=== PATIENT | male | born 1955 | race Caucasian/White ===

== ENCOUNTER 2016-11-17 18:07 | Inpatient (IN) | payer MEDICAID ==
[~2016-11-17 18:07] MED LIST: IOHEXOL 350mg/mL 150mL IV ONE
[2016-11-17] MEDS ORDERED: Sodium Chloride 0.45% 1,000 ML IV ONE ×2 (18:14→18:19)
[2016-11-17 18:38] LABS: % BASOPHILS 0.3 % (0.0-2.0); % EOSINOPHILS 0.7 % (0.0-5.0); % LYMPHOCYTES 17.5 % (20.0-50.0); % MONOCYTES 7.9 % (2.0-10.0); % NEUTROPHILS 73.6 % (40.0-80.0); HEMATOCRIT 48.6 % (39.0-49.0); HEMOGLOBIN 16.2 gm/dL (13.2-17.3); MEAN CELL VOLUME 91.8 fl (80-99); MEAN CORPUSCULAR HEMOGLOBIN 30.7 pg (26.0-30.0); MEAN CORPUSCULAR HGB CONC 33.4 pg (28.0-36.0); MEAN PLATELET VOLUME 7.4 fl; NEUTROPHILE ABSOLUTE 7.8 Th/cmm (1.8-8.0); PLATELET COUNT 290 Th/cmm (150-400); RED CELL DISTRIBUTION WIDTH 13.6 % (11.5-20.0); WHITE BLOOD COUNT 10.6 Th/cmm (4.8-10.8)
[2016-11-17 18:50] LABS: INR 1.06 (0.5-1.4)
[2016-11-17 18:54] LABS: ALB/GLOB RATIO 1.2 (1.0-1.8); ALKALINE PHOSPHATASE 82 U/L (34-104); ANION GAP 12.9 (7.0-16.0); BILIRUBIN,TOTAL 0.7 mg/dL (0.3-1.0); BUN - UREA NITROGEN 23 mg/dL (7-25); BUN/CREATININE RATIO 15.3; CARBON DIOXIDE 25.5 mEq/L (21.0-31.0); CHLORIDE 93 mEq/L (98-107); CHOLESTEROL 252 mg/dL (<200); CREATININE - SERUM 1.5 mg/dL (0.7-1.3); GLUCOSE 195 mg/dL (70-105); POTASSIUM SERUM 4.4 mEq/L (3.5-5.1); SGOT 92 U/L (13-39); SGPT/ALT 91 U/L (7-52); SODIUM SERUM 127 mEq/L (136-145); TRIGLYCERIDES 262 mg/dL (<150)
[2016-11-17] MEDS ORDERED: cefTRIAXone 2 GM in Sodium Chloride 0.9% 100 ML IV ONE (18:54)
--- NOTE | 2016-11-17 20:05 | ED Physician Chart ---
Chief Complaint/HPI - Patient Information Date Seen:: 11/17/16 Time Seen:: 18:20 Chief Complaint:: ALOC History of Present Illness:: THIS IS A 61 YR OLD MALE BIB EMS WITH A HIGH TEMPERATURE, FAST HEART RATE, A LARGE FLUID FILLED ABDOMEN AND UNABLE TO SPEAK. HE IS UNABLE TO GIVE ANY HISTORY OR REVIEW OF SYSTEMS AT THIS TIME. Allergies:: Allergies Allergy/AdvReac Type Severity Reaction Status Date / Time No Known Allergies Allergy Verified 11/17/16 18:45 Vitals:: Vital Signs - 8 hr 11/17/16 11/17/16 18:31 18:45 Temp 105.5 F HR 140 RR 26 BP 188/77 188/77 O2 Sat % 95 Historian:: EMS Review:: Nurse's Note Reviewed Review of Systems - Review of Systems General/Constitutional: Other (NOT ABLE TO GIVE) Past Medical History - Past Medical History Obtainable: No (UNABLE TO GET AT THIS TIME) Family Medical History - Family Member Mother History Unknown: Yes Physical Exam - Physical Examination Other Gen/Cons comments:: THIS IS A 61 YO MALE ALOC AND IN ACUTE DISTRESS, BODY IS HOT, ABDOMEN IS DISTENDED, LUNGS WITH BILATERAL RALES AND DECREASE EXCURSION OF THE DIAPHRAMS. Skin: Nl inspection, No skin lesions Other Skin comments:: SKIN IS HOT AND DRY WITH BILATERAL ENDURATION OF BOTH LOWER EXTREMITIES. Other Respiratory comments:: THE RESPIRATORY RATE IS HIGH 36/MINUTES WITH BILATERAL RALES Other Cardio Vascular comments:: THE HEART RATE IS AROUND 145 AND SINUS Other GI comments:: THE ABDOMEN IS DISTEND WITH FLUID NOTED AND VERY LARGE Other Extremities comments:: THERE IS BILATERAL 4+ PITTING EDEMA WITH REDNESS AND TENDERNESS OF BOTH LOWER LEGS. Other Neuro/Psych comments:: THE PATIENT HAS A ON AND OFF TREMORS BILATERALLY, HE IS DISORIENTED AND UNABLE TO RESPOND TO COMMANDS. Labs/Radiology/EKG Results - Lab Results Results: Laboratory Tests 11/17/16 11/17/16 11/17/16 18:30 18:30 18:30 WBC 10.6 RBC 5.30 Hgb 16.2 Hct 48.6 MCV 91.8 MCH 30.7 H MCHC Differential 33.4 RDW 13.6 Plt Count 290 MPV 7.4 Neutrophils % 73.6 Lymphocytes % 17.5 L Monocytes % 7.9 Eosinophils % 0.7 Basophils % 0.3 PT 11.0 INR 1.06 PTT (Actin FS) 21.6 L Sodium Potassium Chloride Carbon Dioxide Anion Gap BUN Creatinine Est GFR ( Amer) Est GFR (Non-Af Amer) BUN/Creatinine Ratio Glucose Hemoglobin A1c % Whole Bld Lactic Acid Calcium Total Bilirubin AST ALT Alkaline Phosphatase Troponin I Total Protein Albumin Globulin Albumin/Globulin Ratio Triglycerides 262 H Cholesterol 252 H LDL Cholesterol Direct 170 HDL Cholesterol 52 TSH 11/17/16 11/17/16 11/17/16 18:30 18:30 18:30 WBC RBC Hgb Hct MCV MCH MCHC Differential RDW Plt Count MPV Neutrophils % Lymphocytes % Monocytes % Eosinophils % Basophils % PT INR PTT (Actin FS) Sodium 127 L Potassium 4.4 Chloride 93 L Carbon Dioxide 25.5 Anion Gap 12.9 BUN 23 Creatinine 1.5 H Est GFR ( Amer) > 60.0 Est GFR (Non-Af Amer) 50.7 BUN/Creatinine Ratio 15.3 Glucose 195 H Hemoglobin A1c % Whole Bld Lactic Acid Calcium 9.0 Total Bilirubin 0.7 AST 92 H ALT 91 H Alkaline Phosphatase 82 Troponin I 0.04 Total Protein 7.9 Albumin 4.3 Globulin 3.6 Albumin/Globulin Ratio 1.2 Triglycerides Cholesterol LDL Cholesterol Direct HDL Cholesterol TSH 2.02 11/17/16 11/17/16 18:30 18:30 WBC RBC Hgb Hct MCV MCH MCHC Differential RDW Plt Count MPV Neutrophils % Lymphocytes % Monocytes % Eosinophils % Basophils % PT INR PTT (Actin FS) Sodium Potassium Chloride Carbon Dioxide Anion Gap BUN Creatinine Est GFR ( Amer) Est GFR (Non-Af Amer) BUN/Creatinine Ratio Glucose Hemoglobin A1c % 5.7 Whole Bld Lactic Acid 2.98 H* Calcium Total Bilirubin AST ALT Alkaline Phosphatase Troponin I Total Protein Albumin Globulin Albumin/Globulin Ratio Triglycerides Cholesterol LDL Cholesterol Direct HDL Cholesterol TSH - Radiology Results Results: CHEST -X RAY = INCREASE DENSITY OVER THE MID CHEST AREA CT SCAN OF THE CHEST = NO VASCULAR ABNORMALITIES, MILD EDEMA - EKG Interpretations EKG Time:: 18:28 Rate & Rhythm: RATE =138, SINUS TACHYCARDIA Ethel: LEFT AXIS Assessment - Assessment General Assessment: THIS IS A CRITICAL PATIENT WITH A VERY HIGH TEMPERATURE COOLING MEASURES STARTED AND COOL IV FLUIDS, TYLENOL, ANTIBIOTICS WITH LASIX FOR THE FLUID RETENTION IN THE CHEST AND ABDOMEN. ATIVAN WAS GIVEN FOR THE SPASM. THE PATIENT HAD A GOOD RESPONSE TO THE LASIX WITH THE OUTPUT OF 800CC OF URINE. THE PATIENT HAD A REPEAT ABG WITH NOT MUCH CHANGE EXCEPT THERE IS EVIDENCE OF SHUNTING. Critical Care Time: 68 MINUTES Excludes all billable procedures: Yes This condition life threatening/high prob of deterioration: Yes Assessment/Comments:: ACUTE RESPIRATORY FAILURE DUE TO CHF AND HEAT STROKE ED Septic Shock - . Is Septic Shock (SBP<90, OR Lactate>4 mmol\L) present?: No - <6hrs of presentation: Vital Signs: Vital Signs - 8 hr 11/17/16 11/17/16 18:31 18:45 Temp 105.5 F HR 140 RR 26 BP 188/77 188/77 O2 Sat % 95 Reassessment (Disposition) - Reassessment Reassessment Condition:: Improved - Diagnosis Diagnosis:: ACUTE CONGESTIVE HEART FAILURE ELEVATED TEMPERATURE HYPOXEMIA OBESITY - Patient Disposition Discharge/Transfer:: Acute Care w/in this hosp Admitting Medical Physician:: Alton Cardona Condition at Disposition:: Critical, Improved ED Discharge Plan - Patient Disposition Admit/Discharge/Transfer: Acute Care w/in this hosp Condition at Disposition: Improved
[2016-11-17 20:32] LABS: pH 7.45 (7.35-7.45)
[2016-11-17 20:33] LABS: HCO3 27.3 mEq/L (20.0-26.0)
[2016-11-17 20:34] LABS: ALLEN TEST Positive; FIO2 100
[2016-11-17 20:35] LABS: CRITICAL VALUES REPORTED BY DV
[2016-11-17 20:39] LABS: BE(B) 4.3 mEq/L (-3.0-3.0); HCO3 28.3 mEq/L (20.0-26.0); pH 7.43 (7.35-7.45)
[2016-11-17 20:40] LABS: ABG SOURCE ARTERIAL; ALLEN TEST Positive
[2016-11-17 20:41] LABS: CRITICAL VALUES REPORTED BY DV; FIO2 100
[2016-11-17] MEDS: D5-0.45NS 1,000 ML IV SCH (21:30)
[2016-11-17] MEDS ORDERED: Piperacillin Sodium/Tazobact 3.375 gm Vial IV ONE (21:52)
[2016-11-17 22:38] LABS: BNP < 5.0 pg/mL (5.0-100.0)
[2016-11-17 22:41] LABS: TROP I 0.22 ng/mL (0.01-0.05)
[2016-11-17 23:06] LABS: CREATINE KINASE MB 2.9 ng/mL (0.6-6.3)
[2016-11-18] MEDS ORDERED: Piperacillin Sodium/Tazobact 3.375 gm Vial IV ONE (04:44)
[2016-11-18 05:34] LABS: ABG SOURCE ARTERIAL; BE(B) 3.1 mEq/L (-3.0-3.0); pH 7.35 (7.35-7.45)
[2016-11-18 05:35] LABS: ALLEN TEST Positive; FIO2 100
[2016-11-18 05:36] LABS: CRITICAL VALUES REPORTED BY DV
[2016-11-18 06:29] LABS: HEMATOCRIT 46.1 % (39.0-49.0); HEMOGLOBIN 15.5 gm/dL (13.2-17.3); MEAN CELL VOLUME 91.4 fl (80-99); MEAN CORPUSCULAR HEMOGLOBIN 30.8 pg (26.0-30.0); MEAN CORPUSCULAR HGB CONC 33.7 pg (28.0-36.0); MEAN PLATELET VOLUME 7.3 fl; RED BLOOD COUNT 5.04 Mil/cmm (4.30-5.70); RED CELL DISTRIBUTION WIDTH 13.6 % (11.5-20.0)
[2016-11-18 06:32] LABS: PLATELET COUNT 218 Th/cmm (150-400); WHITE BLOOD COUNT 7.8 Th/cmm (4.8-10.8)
[2016-11-18 06:51] LABS: ALB/GLOB RATIO 1.2 (1.0-1.8); ALKALINE PHOSPHATASE 69 U/L (34-104); ANION GAP 9.4 (7.0-16.0); BILIRUBIN,TOTAL 0.7 mg/dL (0.3-1.0); BUN - UREA NITROGEN 22 mg/dL (7-25); BUN/CREATININE RATIO 15.7; CALCIUM SERUM 8.2 mg/dL (8.6-10.3); CARBON DIOXIDE 26.1 mEq/L (21.0-31.0); CHLORIDE 97 mEq/L (98-107); CREATININE - SERUM 1.4 mg/dL (0.7-1.3); GLUCOSE 140 mg/dL (70-105); MAGNESIUM 2.2 mg/dL (1.9-2.7); POTASSIUM SERUM 3.5 mEq/L (3.5-5.1); SGOT 86 U/L (13-39); SGPT/ALT 96 U/L (7-52); SODIUM SERUM 129 mEq/L (136-145)
[2016-11-18 06:54] LABS: TROP I 0.19 ng/mL (0.01-0.05)
[2016-11-18 06:56] LABS: BNP 21.1 pg/mL (5.0-100.0)
[2016-11-18 07:15] LABS: NEUTROPHILS 67 % (40-80); PLATELET ESTIMATE ADEQUATE (NORMAL); PLATELET MORPHOLOGY NORMAL (NORMAL); TOTAL CELLS COUNTED 100
[2016-11-18] MEDS: Albuterol/Ipratropium Neb 3 ML AERS HHN SCH ×4 (07:52→19:17)
--- NOTE | 2016-11-18 08:41 | History and Physical ---
History of Present Illness - HPI Chief Complaint: I passed out. HPI: 61m yrs old with HTN,Hyperlipedemia was shopping at grocery store. Next thing he noticed hw woke in ER. As per ER MD ,patient was brought in to ER by paramedics for ALOC nad found to have high grade fever and SOB. Laynen was rescucitated and now admitted to ICU. Vital Signs: Last Vital Signs Temp 98.6 F 11/18/16 08:08 Pulse 88 11/18/16 08:08 Resp 32 11/18/16 08:08 BP 151/94 11/18/16 08:08 Pulse Ox 97 11/18/16 08:08 Past Medical History Cardiovascular: Report: HTN, Hyperlipidemia Pulmonary: Report: No Pertinent Hx DIRECTOR CLINICAL APPLICATIONS: Report: No Pertinent Hx GI: Report: No Pertinent Hx Psych: Report: No Pertinent Hx Musculoskeletal: Report: No Pertinent Hx Rheumatologic: Report: No pertinent Hx Infectious Disease: Report: No Pertinent Hx Renal/: Report: No Pertinent Hx Endocrine: Report: No Pertinent Hx Dermatology: Report: No Pertinent Hx - Past Surgical History Past Surgical History: No pertinent Hx Family Medical History - Family Member Mother History Unknown: Yes Ethnicity: Non- Hx Family Cancer: No Hx Family Coronary Artery Disease: Yes Hx Family Congestive Heart Failure: No Hx Family Hypertension: Yes Hx Family Stroke: Yes Hx Family Diabetes: Yes Hx Family Seizures: No Hx Family Dementia: No Hx Family AIDS: No Hx Family HIV: No Hx Family COPD: No Hx Family Hepatitis: No Hx Family Psychiatric Problems: No Social History Smoke: Quit Alcohol: Occassional Drugs: None Lives: Alone Domestic Violence: Negative - Medications Home Medications: Home Medication Medication Instructions Recorded Type Unobtainable [Unobtainable] 11/17/16 History - Allergies Allergies/Adverse Reactions: Allergies Allergy/AdvReac Type Severity Reaction Status Date / Time No Known Allergies Allergy Verified 11/17/16 18:45 Review of Systems - Review of Systems Constitutional: Report: Fever, Sweats Eyes: Report: No Significant ENT: Report: No Significant Respiratory: Report: Cough, Shortness of Breath Cardiovascular: Report: No Significant Gastrointestinal: Report: No Significant Genitourinary: Report: No Significant Musculoskeletal: Report: No Significant Skin: Report: Other (bilateral erythema and scratches.) Neurological: Report: No Significant Physical Exam - Physical Exam HEENT: Report: Pharnyx within normal limits Neck: Report: Within normal limits Cardiovascular Systems: Report: +s1/s2 noted, Regular, Rate and Rhythm Respiratory: Report: Wheezing, Rhonchi Abdomen: Report: Non-tender to palpation Back: Report: Inspection of back is within normal limits. Extremities: Report: Pedal edema was noted on inspection Skin: Report: Skin Rash noted Neuro/Psych: Report: Mood affect is within normal limits - Lab Results All Lab Results last 24 hours: Laboratory Last Values WBC 7.8 Th/cmm (4.8-10.8) D 11/18/16 06:15 RBC 5.04 Mil/cmm (4.30-5.70) 11/18/16 06:15 Hgb 15.5 gm/dL (13.2-17.3) 11/18/16 06:15 Hct 46.1 % (39.0-49.0) 11/18/16 06:15 MCV 91.4 fl (80-99) 11/18/16 06:15 MCH 30.8 pg (26.0-30.0) H 11/18/16 06:15 MCHC Differential 33.7 pg (28.0-36.0) 11/18/16 06:15 RDW 13.6 % (11.5-20.0) 11/18/16 06:15 Plt Count 218 Th/cmm (150-400) D 11/18/16 06:15 MPV 7.3 fl 11/18/16 06:15 Neutrophils % 73.6 % (40.0-80.0) 11/17/16 18:30 Lymphocytes % 17.5 % (20.0-50.0) L 11/17/16 18:30 Monocytes % 7.9 % (2.0-10.0) 11/17/16 18:30 Eosinophils % 0.7 % (0.0-5.0) 11/17/16 18:30 Basophils % 0.3 % (0.0-2.0) 11/17/16 18:30 Neutrophils (Manual) 67 % (40-80) 11/18/16 06:15 Lymphocytes 22 % (20-50) 11/18/16 06:15 Monocytes 11 % (2-10) H 11/18/16 06:15 Platelet Estimate ADEQUATE (NORMAL) 11/18/16 06:15 Platelet Morphology NORMAL (NORMAL) 11/18/16 06:15 RBC Morph Micro Appear NORMAL (NORMAL) 11/18/16 06:15 PT 11.0 SECONDS (9.5-11.5) 11/17/16 18:30 INR 1.06 (0.5-1.4) 11/17/16 18:30 PTT (Actin FS) 21.6 SECONDS (26.0-38.0) L 11/17/16 18:30 D-Dimer 2480 ng/mL (100-400) H 11/17/16 21:08 Specimen Source ARTERIAL 11/18/16 05:00 Sample Site Left Radial 11/18/16 05:00 pH 7.35 (7.35-7.45) 11/18/16 05:00 pCO2 54.0 mmHg (35.0-45.0) H 11/18/16 05:00 pO2 196.0 mmHg (80.0-100.0) H 11/18/16 05:00 HCO3 27.0 mEq/L (20.0-26.0) H 11/18/16 05:00 Base Excess 3.1 mEq/L (-3.0-3.0) H 11/18/16 05:00 O2 Saturation 100.0 % (92.0-100.0) 11/18/16 05:00 Travis Test Positive 11/18/16 05:00 Vent Rate N/A 11/18/16 05:00 Inspired O2 100 11/18/16 05:00 Tidal Volume N/A 11/18/16 05:00 PEEP N/A 11/18/16 05:00 Pressure (ins/psv/peep) N/A 11/18/16 05:00 Critical Value DV 11/18/16 05:00 Sodium 129 mEq/L (136-145) L 11/18/16 06:15 Potassium 3.5 mEq/L (3.5-5.1) 11/18/16 06:15 Chloride 97 mEq/L (98-107) L 11/18/16 06:15 Carbon Dioxide 26.1 mEq/L (21.0-31.0) 11/18/16 06:15 Anion Gap 9.4 (7.0-16.0) 11/18/16 06:15 BUN 22 mg/dL (7-25) 11/18/16 06:15 Creatinine 1.4 mg/dL (0.7-1.3) H 11/18/16 06:15 Est GFR ( Amer) > 60.0 ml/min (>90) 11/18/16 06:15 Est GFR (Non-Af Amer) 54.9 ml/min 11/18/16 06:15 BUN/Creatinine Ratio 15.7 11/18/16 06:15 Glucose 140 mg/dL (70-105) H 11/18/16 06:15 Hemoglobin A1c % 5.7 % (4.0-6.0) 11/17/16 18:30 Whole Bld Lactic Acid 2.11 mmol/L (0.60-1.99) H* 11/17/16 21:04 Calcium 8.2 mg/dL (8.6-10.3) L 11/18/16 06:15 Magnesium 2.2 mg/dL (1.9-2.7) 11/18/16 06:15 Total Bilirubin 0.7 mg/dL (0.3-1.0) 11/18/16 06:15 AST 86 U/L (13-39) H 11/18/16 06:15 ALT 96 U/L (7-52) H 11/18/16 06:15 Alkaline Phosphatase 69 U/L (34-104) 11/18/16 06:15 Ammonia 79 umol/L (16-53) H 11/17/16 21:08 Creatine Kinase 1460 U/L (30-223) H 11/17/16 21:08 CK-MB (CK-2) 2.9 ng/mL (0.6-6.3) 11/17/16 21:08 Troponin I 0.19 ng/mL (0.01-0.05) H* D 11/18/16 06:15 B-Natriuretic Peptide 21.1 pg/mL (5.0-100.0) 11/18/16 06:15 Total Protein 7.2 gm/dL (6.0-8.3) 11/18/16 06:15 Albumin 3.9 gm/dL (4.2-5.5) L 11/18/16 06:15 Globulin 3.3 gm/dL 11/18/16 06:15 Albumin/Globulin Ratio 1.2 (1.0-1.8) 11/18/16 06:15 Triglycerides 262 mg/dL (<150) H 11/17/16 18:30 Cholesterol 252 mg/dL (<200) H 11/17/16 18:30 LDL Cholesterol Direct 170 mg/dL (75-193) 11/17/16 18:30 HDL Cholesterol 52 mg/dL (23-92) 11/17/16 18:30 TSH 2.02 uIU/ml (0.34-5.60) 11/17/16 18:30 Ethyl Alcohol < 10 mg/dL (0-10) 11/17/16 18:30 RPR NONREACTIVE (NONREACTIVE) 11/17/16 18:30 Laboratory Results - last 24 hr 11/18/16 11/18/16 11/18/16 05:00 06:15 06:15 WBC 7.8 D RBC 5.04 Hgb 15.5 Hct 46.1 MCV 91.4 MCH 30.8 H MCHC Differential 33.7 RDW 13.6 Plt Count 218 D MPV 7.3 Neutrophils (Manual) 67 Lymphocytes 22 Monocytes 11 H Platelet Estimate ADEQUATE Platelet Morphology NORMAL RBC Morph Micro Appear NORMAL Specimen Source ARTERIAL Sample Site Left Radial pH 7.35 pCO2 54.0 H pO2 196.0 H HCO3 27.0 H Base Excess 3.1 H O2 Saturation 100.0 Travis Test Positive Vent Rate N/A Inspired O2 100 Tidal Volume N/A PEEP N/A Pressure (ins/psv/peep) N/A Critical Value DV Sodium 129 L Potassium 3.5 Chloride 97 L Carbon Dioxide 26.1 Anion Gap 9.4 BUN 22 Creatinine 1.4 H Est GFR ( Amer) > 60.0 Est GFR (Non-Af Amer) 54.9 BUN/Creatinine Ratio 15.7 Glucose 140 H Calcium 8.2 L Magnesium 2.2 Total Bilirubin 0.7 AST 86 H ALT 96 H Alkaline Phosphatase 69 Troponin I B-Natriuretic Peptide Total Protein 7.2 Albumin 3.9 L Globulin 3.3 Albumin/Globulin Ratio 1.2 11/18/16 06:15 WBC RBC Hgb Hct MCV MCH MCHC Differential RDW Plt Count MPV Neutrophils (Manual) Lymphocytes Monocytes Platelet Estimate Platelet Morphology RBC Morph Micro Appear Specimen Source Sample Site pH pCO2 pO2 HCO3 Base Excess O2 Saturation Travis Test Vent Rate Inspired O2 Tidal Volume PEEP Pressure (ins/psv/peep) Critical Value Sodium Potassium Chloride Carbon Dioxide Anion Gap BUN Creatinine Est GFR ( Amer) Est GFR (Non-Af Amer) BUN/Creatinine Ratio Glucose Calcium Magnesium Total Bilirubin AST ALT Alkaline Phosphatase Troponin I 0.19 H* D B-Natriuretic Peptide 21.1 Total Protein Albumin Globulin Albumin/Globulin Ratio - Assessment Assessment: Current Active Problems Problem Status Onset ALTERED MENTAL STATUS Acute Hyperthermia. Acute Resp failure Bilateral LE cellulitis. Hypertension Hyperlipedemia. 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 PUlmo consult. BI pap Nebulizer 2D echo Crardiac enzymes IV antibiotics Follow lab general nursing care ICU care DVT prophylaxsis Monitor BP and start BP meds Evidence of mild rhabdo follow lab and IVF. Care paln reviewed with RN and patient.
[2016-11-18 08:47] LABS: ABG SOURCE Arterial; ALLEN TEST Positive; BE(B) 3.3 mEq/L (-3.0-3.0); HCO3 27.5 mEq/L (20.0-26.0); pH 7.37 (7.35-7.45)
[2016-11-18 08:48] LABS: FIO2 50; MECH RATE 12; PS 6
[2016-11-18 09:07] LABS: URINE BILIRUBIN NEGATIVE (NEGATIVE); URINE BLOOD MODERATE (NEGATIVE); URINE COLOR YELLOW; URINE GLUCOSE (UA) NEGATIVE (NEGATIVE); URINE KETONE NEGATIVE (NEGATIVE); URINE PH 5.5; URINE PROTEIN TRACE mg/dL (NEGATIVE); URINE UROBILINOGEN 0.2 E.U./dL (0.2 - 1.0)
[2016-11-18 09:08] LABS: URINE BACTERIA NONE SEEN /hpf (NONE SEEN); URINE EPITHELIAL CELLS FEW /lpf (FEW); URINE WBC 0-2 /hpf (0-5)
[2016-11-18] MEDS ORDERED: Enoxaparin 30 mg/0.3 mL 0.3mL Syr SUBQ ONE (09:10)
[2016-11-18] MEDS: Enoxaparin 30 mg/0.3 mL 0.3mL Syr SUBQ SCH (09:15)
[2016-11-18 09:18] LABS: AMPHETAMINE URINE POSITIVE (NEGATIVE); BARBITURATES URINE NEGATIVE (NEGATIVE); METHADONE URINE NEGATIVE (NEGATIVE)
--- NOTE | 2016-11-18 11:01 | Diagnostic Imaging Report ---
Portable chest x-ray HISTORY: Shortness of breath. The heart is enlarged. Density noted over the left mid chest. Exact etiology uncertain. A CT scan provide additional clarification. Slight elevation right hemidiaphragm. IMPRESSION: 1. Density over the left mid chest with obscuration of the aortic arch. Etiology uncertain. A CT scan would provide additional clarification. 2. Cardiomegaly
--- NOTE | 2016-11-18 11:04 | Diagnostic Imaging Report ---
CT angiogram of the chest with intravenous contrast (CTA) HISTORY: Shortness of breath Total DLP equals 500 CTDI equals 11.0 Axial sections were obtained from a level above the clavicles down to level below the diaphragm following administration of intravenous contrast. Exam somewhat limited due to difficulty in patient positioning. The exam demonstrates cardiomegaly. There is normal opacification of the main, right, and left pulmonary arteries. No intraluminal filling defects are seen. Specifically, no evidence of pulmonary embolism. Normal caliber of the thoracic aorta. No evidence of aortic dissection or aneurysm. No other abnormal mediastinal masses. No focal abnormality seen within the hilar regions. There is accentuation of the lower interstitial lung markings. However, no definite focal processes are seen. Mild pleural thickening noted in the right left lower hemithoracic areas. Limited sections below the diaphragm demonstrate hepatomegaly. There appears to be a decrease in hepatic parenchymal density consistent with fatty infiltration. The finding should be correlated with liver function tests. An approximate 9.0 cm cyst extends off the anterior cortex of the left kidney. IMPRESSION: 1. No acute abnormalities 2. No vascular abnormalities or abnormal masses within the chest. 3. Accentuation of the lower interstitial lung markings. Mild edema cannot be excluded. 4. Cardiomegaly 5. Hepatomegaly with findings consistent with fatty infiltration. The changes should be correlated with liver function tests. 6. Left renal cyst
[2016-11-18 15:19] LABS: CREATINE KINASE MB 4.7 ng/mL (0.6-6.3)
[2016-11-18] MEDS: Budesonide 0.5 Mg/2 mL Ud HHN SCH (19:17)
[2016-11-18] MEDS: Vancomycin HCl 1.5 GM in Sodium Chloride 0.9% 500 ML IV SCH (20:00)
[2016-11-18] MEDS: D5-0.45NS 1,000 ML IV SCH (23:42)
[2016-11-19] MEDS: D5-0.45NS 1,000 ML IV SCH ×3 (02:26→17:01)
[2016-11-19 05:15] LABS: % BASOPHILS 0.5 % (0.0-2.0); % EOSINOPHILS 2.2 % (0.0-5.0); % LYMPHOCYTES 13.3 % (20.0-50.0); % MONOCYTES 9.9 % (2.0-10.0); % NEUTROPHILS 74.1 % (40.0-80.0); HEMATOCRIT 43.8 % (39.0-49.0); HEMOGLOBIN 14.8 gm/dL (13.2-17.3); MEAN CELL VOLUME 92.9 fl (80-99); MEAN CORPUSCULAR HEMOGLOBIN 31.4 pg (26.0-30.0); MEAN CORPUSCULAR HGB CONC 33.8 pg (28.0-36.0); MEAN PLATELET VOLUME 7.3 fl; NEUTROPHILE ABSOLUTE 6.7 Th/cmm (1.8-8.0); PLATELET COUNT 202 Th/cmm (150-400); RED BLOOD COUNT 4.72 Mil/cmm (4.30-5.70); RED CELL DISTRIBUTION WIDTH 13.8 % (11.5-20.0)
[2016-11-19 06:09] LABS: ALB/GLOB RATIO 1.4 (1.0-1.8); ALKALINE PHOSPHATASE 59 U/L (34-104); ANION GAP 5.2 (7.0-16.0); BILIRUBIN,TOTAL 0.6 mg/dL (0.3-1.0); BUN - UREA NITROGEN 14 mg/dL (7-25); CALCIUM SERUM 8.2 mg/dL (8.6-10.3); CARBON DIOXIDE 30.7 mEq/L (21.0-31.0); CHLORIDE 103 mEq/L (98-107); GLUCOSE 123 mg/dL (70-105); POTASSIUM SERUM 3.9 mEq/L (3.5-5.1); SGOT 47 U/L (13-39); SGPT/ALT 79 U/L (7-52); SODIUM SERUM 135 mEq/L (136-145)
[2016-11-19] MEDS: Albuterol/Ipratropium Neb 3 ML AERS HHN SCH ×4 (07:04→18:56)
[2016-11-19] MEDS: Budesonide 0.5 Mg/2 mL Ud HHN SCH ×2 (07:04→18:56)
--- NOTE | 2016-11-19 08:48 | Diagnostic Imaging Report ---
Portable chest x-ray HISTORY: Shortness of breath The heart is enlarged. There is widening of the mediastinum that corresponds to mediastinal fat noted on the earlier CT scan of November 17, 2016. Persistent elevation of the right hemidiaphragm since November 17, 2016. No acute focal pulmonary processes. IMPRESSION: 1. Cardiomegaly 2. No acute focal pulmonary processes
[2016-11-19] MEDS: Enoxaparin 30 mg/0.3 mL 0.3mL Syr SUBQ SCH (09:46)
[2016-11-19] MEDS: Vancomycin HCl 1.5 GM in Sodium Chloride 0.9% 500 ML IV SCH ×2 (09:46→20:58)
[2016-11-19 10:05] LABS: pH 7.33 (7.35-7.45)
[2016-11-19 10:10] LABS: ABG SOURCE Arterial; ALLEN TEST YES; BE(B) 4.4 mEq/L (-3.0-3.0); FIO2 40; HCO3 32.3 mEq/L (20.0-26.0)
--- NOTE | 2016-11-19 15:13 | Consultation ---
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 Past Medical History: Diagnoses OBESITY, UNSPECIFIED (11/17/16) HYPERLIPIDEMIA, UNSPECIFIED (11/17/16) OBSTRUCTIVE SLEEP APNEA (ADULT) (PEDIATRIC) (11/17/16) ESSENTIAL (PRIMARY) HYPERTENSION (11/17/16) HEART FAILURE, UNSPECIFIED (11/17/16) ACUTE RESPIRATORY FAILURE WITH HYPOXIA (11/17/16) CELLULITIS OF RIGHT LOWER LIMB (11/17/16) CELLULITIS OF LEFT LOWER LIMB (11/17/16) UNSPECIFIED OSTEOARTHRITIS, UNSPECIFIED SITE (11/17/16) RHABDOMYOLYSIS (11/17/16) FEVER, UNSPECIFIED (11/17/16) HEATSTROKE AND SUNSTROKE, INITIAL ENCOUNTER (11/17/16) BODY MASS INDEX (BMI) 40.0-44.9, ADULT (11/17/16) Allergies Allergy/AdvReac Type Severity Reaction Status Date / Time No Known Allergies Allergy Verified 11/17/16 18:45 Vital Signs Temp 99.7 F 11/19/16 11:59 Pulse 86 11/19/16 11:59 Resp 18 11/19/16 11:59 BP 137/80 11/19/16 11:59 Pulse Ox 95 11/19/16 11:59 Intake & Output 11/18/16 11/19/16 11/19/16 18:59 06:59 18:59 Intake Total 2049 2030.000 Output Total 1300 Balance 2049 730.000 Weight (lbs) 153.768 kg 152.209 kg Intake: Intake, IV Amount 2049 1030.000 D5-0.45NS 1,000 ml @ 100 1000 330.000 mls/hr IV .Q10H [facility] Rx#: [id number] Piperacillin Sodium/ 50 200 Tazobact 3.375 gm In Sodium Chloride 0.9% 50 ml @ 100 mls/hr IV Q6HR [facility] Rx#:[id number] Vancomycin HCl 1.5 gm In 500 Sodium Chloride 0.9% 500 ml @ 250 mls/hr IV Q12H [facility] Rx#:[id number] Oral 1000 Output: Urine 1300 Laboratory Results - last 24 hr 11/18/16 11/18/16 11/18/16 14:11 14:11 22:39 WBC RBC Hgb Hct MCV MCH MCHC Differential RDW Plt Count MPV Neutrophils % Lymphocytes % Monocytes % Eosinophils % Basophils % Specimen Source Sample Site pH pCO2 pO2 HCO3 Base Excess O2 Saturation Travis Test Vent Rate Inspired O2 Tidal Volume PEEP Pressure (ins/psv/peep) Critical Value Sodium Potassium Chloride Carbon Dioxide Anion Gap BUN Creatinine Est GFR ( Amer) Est GFR (Non-Af Amer) BUN/Creatinine Ratio Glucose Calcium Total Bilirubin AST ALT Alkaline Phosphatase Ammonia CK-MB (CK-2) 4.7 Troponin I 0.10 H* D 0.06 H D Total Protein Albumin Globulin Albumin/Globulin Ratio 11/19/16 11/19/16 11/19/16 04:50 04:50 05:00 WBC 9.0 RBC 4.72 Hgb 14.8 Hct 43.8 MCV 92.9 MCH 31.4 H MCHC Differential 33.8 RDW 13.8 Plt Count 202 MPV 7.3 Neutrophils % 74.1 Lymphocytes % 13.3 L Monocytes % 9.9 Eosinophils % 2.2 Basophils % 0.5 Specimen Source Sample Site pH pCO2 pO2 HCO3 Base Excess O2 Saturation Travis Test Vent Rate Inspired O2 Tidal Volume PEEP Pressure (ins/psv/peep) Critical Value Sodium 135 L Potassium 3.9 Chloride 103 Carbon Dioxide 30.7 Anion Gap 5.2 L BUN 14 Creatinine 1.0 Est GFR ( Amer) > 60.0 Est GFR (Non-Af Amer) > 60.0 BUN/Creatinine Ratio 14.0 Glucose 123 H Calcium 8.2 L Total Bilirubin 0.6 AST 47 H ALT 79 H Alkaline Phosphatase 59 Ammonia 60 H CK-MB (CK-2) Troponin I Total Protein 6.4 Albumin 3.7 L Globulin 2.7 Albumin/Globulin Ratio 1.4 11/19/16 09:50 WBC RBC Hgb Hct MCV MCH MCHC Differential RDW Plt Count MPV Neutrophils % Lymphocytes % Monocytes % Eosinophils % Basophils % Specimen Source Arterial Sample Site Right Radial pH 7.33 L pCO2 62.0 H* pO2 86.8 HCO3 32.3 H Base Excess 4.4 H O2 Saturation 95.8 Travis Test YES Vent Rate NA Inspired O2 40 Tidal Volume NA PEEP NA Pressure (ins/psv/peep) NA Critical Value E.FERNÁNDEZ Sodium Potassium Chloride Carbon Dioxide Anion Gap BUN Creatinine Est GFR ( Amer) Est GFR (Non-Af Amer) BUN/Creatinine Ratio Glucose Calcium Total Bilirubin AST ALT Alkaline Phosphatase Ammonia CK-MB (CK-2) Troponin I Total Protein Albumin Globulin Albumin/Globulin Ratio Home Medication Medication Instructions Recorded Type Unobtainable [Unobtainable] 11/17/16 History Current Medications Generic Name Dose Route Start Last Admin Trade Name Freq PRN Reason Stop Dose Admin Acetaminophen 650 mg 11/17/16 21:19 11/18/16 00:05 Tylenol PO 01/16/17 21:18 650 mg Q6H PRN Administration Mild Pain/Headache/T above 101 Albuterol/Ipratropium 3 ml 11/18/16 15:00 11/19/16 11:49 Duoneb Neb HHN 01/17/17 14:59 3 ml [id number] HUA Administration Budesonide 0.5 mg 11/18/16 19:00 11/19/16 07:04 Pulmicort N 01/17/17 18:59 0.5 mg BIDRT HUA Administration Enoxaparin Sodium 30 mg 11/18/16 09:00 11/19/16 09:46 Lovenox SUBQ 01/17/17 08:59 30 mg DAILY HUA Administration Dextrose/Sodium Chloride 1,000 mls @ 100 mls/hr 11/17/16 21:30 11/19/16 05:27 D5-0.45ns IV 01/16/17 21:29 100 mls/hr .Q10H HUA Administration Piperacillin Sod/Tazobactam 50 mls @ 100 mls/hr 11/17/16 22:00 11/19/16 11:27 Sod 3.375 gm/ Sodium Chloride IV 01/16/17 21:59 100 mls/hr Q6HR HUA Administration Vancomycin HCl 1.5 gm/ Sodium 500 mls @ 250 mls/hr 11/18/16 20:00 11/19/16 09 :46 Chloride IV 01/17/17 19:59 250 mls/hr Q12H [facility] Administration Lorazepam 1 mg 11/17/16 21:19 Ativan IVP 01/16/17 21:18 Q4H PRN Anxiety/Agitation Protocol Miscellaneous 1 ea 11/18/16 17:44 Vancomycin Iv Per Pharmacy [facility] 01/17/17 17:43 PRN PRN PROTOCOL Ondansetron HCl 4 mg 11/17/16 21:19 Zofran IVP 01/16/17 21:18 Q6H PRN Nausea / Vomiting Review of Systems: A 12 point ROS was reviewed with the pertinent positive and negatives noted in the HPI. Social History Smoking Status Never smoker Drug Use No Alcohol Use Yes Family Medical History Family Medical History Start: 11/18/16 07: 42 Freq: ONCE Status: Active Document 11/18/16 07:42 [email or web address] (Rec: 11/19/16 04:42 [email or web address] [facility] [id number]) Family Medical History Mother History Unknown Yes Physical Exam: General: Confused shortness of breath on BiPAP HEENT: EOMI Bilaterally, PERRLA Bilaterally, Head is normocephalic, atraumatic on inspection. Cardio: S1-S2 no S3 soft S4 cell systolic murmur Respiratory: Bilateral wheezing and rhonchi Abdominal: Soft, Nondistended, Nontender to palpation x 4 quadrants Genital/Urinary: Normal. Extremities: Minimal pedal edema peripheral pulses feeble Neurological: Cranial Nerves II-XII intact bilaterally, Gait Steady, No Focal Deficits noted. Assessment/Plan: Acute respiratory failure on BiPAP Hypotension Security stage full Substance abuse with methamphetamine Hypertension Hyperlipidemia Bilateral cellulitis in the legs Obesity Obstructive sleep apnea Patient to continue present care. Echocardiogram to evaluate left ventricular function Signed, Ac Membreno. [id number]
--- NOTE | 2016-11-19 16:12 | Cardiology ---
Cardiology Report - Cardiology Cardiology: Date of Service: 11/18/[address] wes moreno M-MODE ECHOCARDIOLGRAM: Mitral valve normal hypertrophy of the left ventricle ejection fraction 50% left Atrium normal aortic root normal aortic leaflets normal ejection fraction 50% CONCLUSION: Hypertrophy of the left ventricle ejection fraction 50% 2D ECHO: Long axis mitral valve normal hypertrophy of the left ventricle ejection fraction 50% left Atrium normal aortic root normal aortic leaflets normal CONCLUSION: Hypertrophy of the left ventricle ejection fraction 50% DOPPLER: Trace mitral regurgitation trace tricuspid regurgitation CONCLUSION: Hypertrophy of left ventricle trace mitral regurgitation trace tricuspid regurgitation ejection fraction 50% right ventricular systolic pressure 29 mmHg
--- NOTE | 2016-11-19 17:12 | Consultation ---
Consult Note - Consult Note Service Date: 11/19/16 Consult Note: PHYSICIAN Consultation Note: Date of Admission: 11/17/16 Purpose of Consultation: Sepsis. 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 History of Present Illness: 61 y male with history of Obesity, sleep apnea, HTN, CHF admitted to the hospital for fever, tachycardia, and swelling and redness of the both lower extremities. On intial evaluation, his temperature was 105.5 degree F and WBC Count was 10,600. lactic acid was 2.98. Sepsis w/u was performed. Blood culture grew GPC and , he was started on vanco IV. ID consult was called for antibiotic management. Past Medical History: Obesity, sleep apnea, HTN, COPD, hyperlipidemia, CHF, Diagnoses OBESITY, UNSPECIFIED (11/17/16) HYPERLIPIDEMIA, UNSPECIFIED (11/17/16) OBSTRUCTIVE SLEEP APNEA (ADULT) (PEDIATRIC) (11/17/16) ESSENTIAL (PRIMARY) HYPERTENSION (11/17/16) HEART FAILURE, UNSPECIFIED (11/17/16) ACUTE RESPIRATORY FAILURE WITH HYPOXIA (11/17/16) CELLULITIS OF RIGHT LOWER LIMB (11/17/16) CELLULITIS OF LEFT LOWER LIMB (11/17/16) UNSPECIFIED OSTEOARTHRITIS, UNSPECIFIED SITE (11/17/16) RHABDOMYOLYSIS (11/17/16) FEVER, UNSPECIFIED (11/17/16) HEATSTROKE AND SUNSTROKE, INITIAL ENCOUNTER (11/17/16) BODY MASS INDEX (BMI) 40.0-44.9, ADULT (11/17/16) Allergies Allergy/AdvReac Type Severity Reaction Status Date / Time No Known Allergies Allergy Verified 11/17/16 18:45 Vital Signs Temp 99.7 F 11/19/16 11:59 Pulse 87 11/19/16 15:19 Resp 18 11/19/16 15:19 BP 137/80 11/19/16 11:59 Pulse Ox 92 11/19/16 15:19 Intake & Output 11/18/16 11/19/16 11/19/16 18:59 06:59 18:59 Intake Total 2049 2030.000 Output Total 1300 Balance 2049 730.000 Weight (lbs) 153.768 kg 152.209 kg Intake: Intake, IV Amount 2049 1030.000 D5-0.45NS 1,000 ml @ 100 1000 330.000 mls/hr IV .Q10H [facility] Rx#: [id number] Piperacillin Sodium/ 50 200 Tazobact 3.375 gm In Sodium Chloride 0.9% 50 ml @ 100 mls/hr IV Q6HR [facility] Rx#:[id number] Vancomycin HCl 1.5 gm In 500 Sodium Chloride 0.9% 500 ml @ 250 mls/hr IV Q12H [facility] Rx#:[id number] Oral 1000 Output: Urine 1300 Laboratory Results - last 24 hr 11/18/16 11/19/16 11/19/16 22:39 04:50 04:50 WBC 9.0 RBC 4.72 Hgb 14.8 Hct 43.8 MCV 92.9 MCH 31.4 H MCHC Differential 33.8 RDW 13.8 Plt Count 202 MPV 7.3 Neutrophils % 74.1 Lymphocytes % 13.3 L Monocytes % 9.9 Eosinophils % 2.2 Basophils % 0.5 Specimen Source Sample Site pH pCO2 pO2 HCO3 Base Excess O2 Saturation Travis Test Vent Rate Inspired O2 Tidal Volume PEEP Pressure (ins/psv/peep) Critical Value Sodium Potassium Chloride Carbon Dioxide Anion Gap BUN Creatinine Est GFR ( Amer) Est GFR (Non-Af Amer) BUN/Creatinine Ratio Glucose Calcium Total Bilirubin AST ALT Alkaline Phosphatase Ammonia 60 H Troponin I 0.06 H D Total Protein Albumin Globulin Albumin/Globulin Ratio 11/19/16 11/19/16 05:00 09:50 WBC RBC Hgb Hct MCV MCH MCHC Differential RDW Plt Count MPV Neutrophils % Lymphocytes % Monocytes % Eosinophils % Basophils % Specimen Source Arterial Sample Site Right Radial pH 7.33 L pCO2 62.0 H* pO2 86.8 HCO3 32.3 H Base Excess 4.4 H O2 Saturation 95.8 Travis Test YES Vent Rate NA Inspired O2 40 Tidal Volume NA PEEP NA Pressure (ins/psv/peep) NA Critical Value E.FERNÁNDEZ Sodium 135 L Potassium 3.9 Chloride 103 Carbon Dioxide 30.7 Anion Gap 5.2 L BUN 14 Creatinine 1.0 Est GFR ( Amer) > 60.0 Est GFR (Non-Af Amer) > 60.0 BUN/Creatinine Ratio 14.0 Glucose 123 H Calcium 8.2 L Total Bilirubin 0.6 AST 47 H ALT 79 H Alkaline Phosphatase 59 Ammonia Troponin I Total Protein 6.4 Albumin 3.7 L Globulin 2.7 Albumin/Globulin Ratio 1.4 Home Medication Medication Instructions Recorded Type Unobtainable [Unobtainable] 11/17/16 History Current Medications Generic Name Dose Route Start Last Admin Trade Name Freq PRN Reason Stop Dose Admin Acetaminophen 650 mg 11/17/16 21:19 11/18/16 00:05 Tylenol PO 01/16/17 21:18 650 mg Q6H PRN Administration Mild Pain/Headache/T above 101 Albuterol/Ipratropium 3 ml 11/18/16 15:00 11/19/16 15:18 Duoneb Neb N 01/17/17 14:59 3 ml [id number] HUA Administration Budesonide 0.5 mg 11/18/16 19:00 11/19/16 07:04 Pulmicort HHN 01/17/17 18:59 0.5 mg BIDRT HUA Administration Enoxaparin Sodium 30 mg 11/18/16 09:00 11/19/16 09:46 Lovenox SUBQ 01/17/17 08:59 30 mg DAILY HUA Administration Dextrose/Sodium Chloride 1,000 mls @ 100 mls/hr 11/17/16 21:30 11/19/16 05:27 D5-0.45ns IV 01/16/17 21:29 100 mls/hr .Q10H HUA Administration Piperacillin Sod/Tazobactam 50 mls @ 100 mls/hr 11/17/16 22:00 11/19/16 11:27 Sod 3.375 gm/ Sodium Chloride IV 01/16/17 21:59 100 mls/hr Q6HR HAU Administration Vancomycin HCl 1.5 gm/ Sodium 500 mls @ 250 mls/hr 11/18/16 20:00 11/19/16 09 :46 Chloride IV 01/17/17 19:59 250 mls/hr Q12H HUA Administration Lorazepam 1 mg 11/17/16 21:19 Ativan IVP 01/16/17 21:18 Q4H PRN Anxiety/Agitation Protocol Miscellaneous 1 ea 11/18/16 17:44 Vancomycin Iv Per Pharmacy MC 01/17/17 17:43 PRN PRN PROTOCOL Ondansetron HCl 4 mg 11/17/16 21:19 Zofran IVP 01/16/17 21:18 Q6H PRN Nausea / Vomiting Review of Systems: A 12 point ROS was reviewed with the pertinent positive and negatives noted in the HPI. Social History Smoking Status Never smoker Drug Use No Alcohol Use Yes Family Medical History Unknown. Physical Exam: General: Conmfotable , obese, not in any acute distress. HEENT: Head is normocephalic, atraumatic, Oral cavity: moist, pink tongue. Eyes : pallor is present, icterus neg. Pupil PERRLL. EOMI. Cardio: S1 and S2 WNL, no gallop, no rub. No murmur. Respiratory: Vesicular breath, distant reath sounds. Abdominal: soft, NT ND, BS. Globular. Genital/Urinary: Mijares in place. with cloudy urine. Extremities: NCCE. b/l legs are swollen and red. Neurological: AAOx3. Assessment: 1. CN staph sepsis. 2. cardiomyopathy. 3. Cellulitis of bith legs. 4. [place]. 5. COPD. 6. HTN. 7. CHF. 8. Obesity. 9. highly suspect uti Plan: Will continue vanco IV and zosyn. Repeat blood c/s. Echo is reviewed. repeat ua. urine culture. Signed, Link Membreno M.D. [id number]
[2016-11-19] MEDS ORDERED: Piperacillin Sodium/Tazobact 3.375 gm Vial IV ONE (21:30)
[2016-11-20 05:26] LABS: % BASOPHILS 0.8 % (0.0-2.0); % EOSINOPHILS 3.2 % (0.0-5.0); % LYMPHOCYTES 12.8 % (20.0-50.0); % MONOCYTES 6.4 % (2.0-10.0); % NEUTROPHILS 76.8 % (40.0-80.0); HEMOGLOBIN 14.4 gm/dL (13.2-17.3); MEAN CELL VOLUME 93.3 fl (80-99); MEAN CORPUSCULAR HEMOGLOBIN 31.2 pg (26.0-30.0); MEAN CORPUSCULAR HGB CONC 33.4 pg (28.0-36.0); MEAN PLATELET VOLUME 7.4 fl; NEUTROPHILE ABSOLUTE 6.9 Th/cmm (1.8-8.0); PLATELET COUNT 189 Th/cmm (150-400); RED BLOOD COUNT 4.61 Mil/cmm (4.30-5.70); RED CELL DISTRIBUTION WIDTH 13.9 % (11.5-20.0); WHITE BLOOD COUNT 9.1 Th/cmm (4.8-10.8)
[2016-11-20 05:54] LABS: ALKALINE PHOSPHATASE 64 U/L (34-104); ANION GAP 7.6 (7.0-16.0); BILIRUBIN,TOTAL 0.7 mg/dL (0.3-1.0); BUN - UREA NITROGEN 10 mg/dL (7-25); CALCIUM SERUM 8.3 mg/dL (8.6-10.3); CARBON DIOXIDE 28.3 mEq/L (21.0-31.0); CHLORIDE 100 mEq/L (98-107); GLUCOSE 126 mg/dL (70-105); POTASSIUM SERUM 3.9 mEq/L (3.5-5.1); SGOT 44 U/L (13-39); SGPT/ALT 71 U/L (7-52); SODIUM SERUM 132 mEq/L (136-145)
[2016-11-20] MEDS: Albuterol/Ipratropium Neb 3 ML AERS HHN SCH ×4 (07:19→20:10)
[2016-11-20] MEDS: Budesonide 0.5 Mg/2 mL Ud HHN SCH ×2 (07:19→20:11)
--- NOTE | 2016-11-20 08:34 | Diagnostic Imaging Report ---
Portable chest x-ray HISTORY: Shortness of breath Compared to prior exam of 11/19/2016, the heart remains enlarged. There is a widened mediastinum the corresponds to mediastinal fat demonstrated on an earlier CT scan of November 17, 2016. Persistent elevation of the right hemidiaphragm. No focal pulmonary processes. IMPRESSION: 1. No change in the cardiopulmonary status.
[2016-11-20] MEDS: Vancomycin HCl 1.5 GM in Sodium Chloride 0.9% 500 ML IV SCH ×2 (09:13→20:00)
[2016-11-20] MEDS: Enoxaparin 30 mg/0.3 mL 0.3mL Syr SUBQ SCH (09:17)
[2016-11-20] MEDS ORDERED: VTE Chemical Prophylaxis Screen/Admission MC PRN (09:32)
[2016-11-20] MEDS ORDERED: Probiotic Screen MC PRN (09:36)
--- NOTE | 2016-11-20 11:11 | Infectious Disease Prog Note ---
Infectious Disease Subjective - Review of Systems Service Date: 11/20/16 Subjective: there is no new change, feels better. Infectious Disease Objective - Results Result Diagrams: 11/20/16 05:14 11/20/16 05:14 Recent Labs: Laboratory Last Values WBC 9.1 Th/cmm (4.8-10.8) 11/20/16 05:14 RBC 4.61 Mil/cmm (4.30-5.70) 11/20/16 05:14 Hgb 14.4 gm/dL (13.2-17.3) 11/20/16 05:14 Hct 43.0 % (39.0-49.0) 11/20/16 05:14 MCV 93.3 fl (80-99) 11/20/16 05:14 MCH 31.2 pg (26.0-30.0) H 11/20/16 05:14 MCHC Differential 33.4 pg (28.0-36.0) 11/20/16 05:14 RDW 13.9 % (11.5-20.0) 11/20/16 05:14 Plt Count 189 Th/cmm (150-400) 11/20/16 05:14 MPV 7.4 fl 11/20/16 05:14 Neutrophils % 76.8 % (40.0-80.0) 11/20/16 05:14 Lymphocytes % 12.8 % (20.0-50.0) L 11/20/16 05:14 Monocytes % 6.4 % (2.0-10.0) 11/20/16 05:14 Eosinophils % 3.2 % (0.0-5.0) 11/20/16 05:14 Basophils % 0.8 % (0.0-2.0) 11/20/16 05:14 Neutrophils (Manual) 67 % (40-80) 11/18/16 06:15 Lymphocytes 22 % (20-50) 11/18/16 06:15 Monocytes 11 % (2-10) H 11/18/16 06:15 Platelet Estimate ADEQUATE (NORMAL) 11/18/16 06:15 Platelet Morphology NORMAL (NORMAL) 11/18/16 06:15 RBC Morph Micro Appear NORMAL (NORMAL) 11/18/16 06:15 PT 11.0 SECONDS (9.5-11.5) 11/17/16 18:30 INR 1.06 (0.5-1.4) 11/17/16 18:30 PTT (Actin FS) 21.6 SECONDS (26.0-38.0) L 11/17/16 18:30 D-Dimer 2480 ng/mL (100-400) H 11/17/16 21:08 Specimen Source Arterial 11/19/16 09:50 Sample Site Right Radial 11/19/16 09:50 pH 7.33 (7.35-7.45) L 11/19/16 09:50 pCO2 62.0 mmHg (35.0-45.0) H* 11/19/16 09:50 pO2 86.8 mmHg (80.0-100.0) 11/19/16 09:50 HCO3 32.3 mEq/L (20.0-26.0) H 11/19/16 09:50 Base Excess 4.4 mEq/L (-3.0-3.0) H 11/19/16 09:50 O2 Saturation 95.8 % (92.0-100.0) 11/19/16 09:50 Travis Test YES 11/19/16 09:50 Vent Rate NA 11/19/16 09:50 Inspired O2 40 11/19/16 09:50 Tidal Volume NA 11/19/16 09:50 PEEP NA 11/19/16 09:50 Pressure (ins/psv/peep) NA 11/19/16 09:50 Critical Value E.FERNÁNDEZ 11/19/16 09:50 Sodium 132 mEq/L (136-145) L 11/20/16 05:14 Potassium 3.9 mEq/L (3.5-5.1) 11/20/16 05:14 Chloride 100 mEq/L (98-107) 11/20/16 05:14 Carbon Dioxide 28.3 mEq/L (21.0-31.0) 11/20/16 05:14 Anion Gap 7.6 (7.0-16.0) 11/20/16 05:14 BUN 10 mg/dL (7-25) 11/20/16 05:14 Creatinine 1.0 mg/dL (0.7-1.3) 11/20/16 05:14 Est GFR ( Amer) > 60.0 ml/min (>90) 11/20/16 05:14 Est GFR (Non-Af Amer) > 60.0 ml/min 11/20/16 05:14 BUN/Creatinine Ratio 10.0 11/20/16 05:14 Glucose 126 mg/dL (70-105) H 11/20/16 05:14 Hemoglobin A1c % 5.7 % (4.0-6.0) 11/17/16 18:30 Whole Bld Lactic Acid 2.11 mmol/L (0.60-1.99) H* 11/17/16 21:04 Calcium 8.3 mg/dL (8.6-10.3) L 11/20/16 05:14 Magnesium 2.2 mg/dL (1.9-2.7) 11/18/16 06:15 Total Bilirubin 0.7 mg/dL (0.3-1.0) 11/20/16 05:14 AST 44 U/L (13-39) H 11/20/16 05:14 ALT 71 U/L (7-52) H 11/20/16 05:14 Alkaline Phosphatase 64 U/L (34-104) 11/20/16 05:14 Ammonia 60 umol/L (16-53) H 11/19/16 04:50 Creatine Kinase 934 U/L (30-223) H 11/18/16 14:11 CK-MB (CK-2) 4.7 ng/mL (0.6-6.3) 11/18/16 14:11 Troponin I 0.06 ng/mL (0.01-0.05) H D 11/18/16 22:39 B-Natriuretic Peptide 21.1 pg/mL (5.0-100.0) 11/18/16 06:15 Total Protein 6.8 gm/dL (6.0-8.3) 11/20/16 05:14 Albumin 3.4 gm/dL (4.2-5.5) L 11/20/16 05:14 Globulin 3.4 gm/dL 11/20/16 05:14 Albumin/Globulin Ratio 1.0 (1.0-1.8) 11/20/16 05:14 Triglycerides 262 mg/dL (<150) H 11/17/16 18:30 Cholesterol 252 mg/dL (<200) H 11/17/16 18:30 LDL Cholesterol Direct 170 mg/dL (75-193) 11/17/16 18:30 HDL Cholesterol 52 mg/dL (23-92) 11/17/16 18:30 TSH 2.02 uIU/ml (0.34-5.60) 11/17/16 18:30 Urine Source CLEAN C 11/18/16 07:30 Urine Color YELLOW 11/18/16 07:30 Urine Clarity SLIGHT HAZY (CLEAR) 11/18/16 07:30 Urine pH 5.5 11/18/16 07:30 Ur Specific [place] 1.015 (1.005-1.030) 11/18/16 07:30 Urine Protein TRACE mg/dL (NEGATIVE) 11/18/16 07:30 Urine Glucose (UA) NEGATIVE mg/dL (NEGATIVE) 11/18/16 07:30 Urine Ketones NEGATIVE mg/dL (NEGATIVE) 11/18/16 07:30 Urine Blood MODERATE (NEGATIVE) H 11/18/16 07:30 Urine Nitrate NEGATIVE (NEGATIVE) 11/18/16 07:30 Urine Bilirubin NEGATIVE (NEGATIVE) 11/18/16 07:30 Urine Urobilinogen 0.2 E.U./dL (0.2 - 1.0) 11/18/16 07:30 Ur Leukocyte Esterase NEGATIVE (NEGATIVE) 11/18/16 07:30 Urine RBC 2-5 /hpf (0-5) H 11/18/16 07:30 Urine WBC 0-2 /hpf (0-5) 11/18/16 07:30 Ur Epithelial Cells FEW /lpf (FEW) 11/18/16 07:30 Urine Bacteria NONE SEEN /hpf (NONE SEEN) 11/18/16 07:30 Urine Opiates Screen NEGATIVE (NEGATIVE) 11/18/16 07:30 Urine Methadone Screen NEGATIVE (NEGATIVE) 11/18/16 07:30 Ur Barbiturates Screen NEGATIVE (NEGATIVE) 11/18/16 07:30 Ur Tricyclics Screen NEGATIVE (NEGATIVE) 11/18/16 07:30 Ur Phencyclidine Scrn NEGATIVE (NEGATIVE) 11/18/16 07:30 Amphetamines Screen POSITIVE (NEGATIVE) H 11/18/16 07:30 U Methamphetamines Scrn POSITIVE (NEGATIVE) H 11/18/16 07:30 U Benzodiazepines Scrn NEGATIVE (NEGATIVE) 11/18/16 07:30 U Cocaine Metab Screen NEGATIVE (NEGATIVE) 11/18/16 07:30 U Cannabinoids Screen NEGATIVE (NEGATIVE) 11/18/16 07:30 Ethyl Alcohol < 10 mg/dL (0-10) 11/17/16 18:30 RPR NONREACTIVE (NONREACTIVE) 11/17/16 18:30 - Physical Exam Vitals and I&O: Vital Signs Temp 99.3 F 11/20/16 06:00 Pulse 91 11/20/16 11:03 Resp 24 11/20/16 11:03 BP 148/89 11/20/16 06:00 Pulse Ox 95 11/20/16 11:03 Intake & Output 11/19/16 11/20/16 11/20/16 18:59 06:59 18:59 Intake Total 1600 1350 Output Total 1150 Balance 1600 200 Weight (lbs) 152.209 kg 157.533 kg Intake: Intake, IV Amount 1600 550 D5-0.45NS 1,000 ml @ 100 1000 mls/hr IV .Q10H [facility] Rx#: [id number] Piperacillin Sodium/ 100 50 Tazobact 3.375 gm In Sodium Chloride 0.9% 50 ml @ 100 mls/hr IV Q6HR [facility] Rx#:[id number] Vancomycin HCl 1.5 gm In 500 500 Sodium Chloride 0.9% 500 ml @ 250 mls/hr IV Q12H [facility] Rx#:[id number] Oral 800 Output: Urine 1150 Active Medications: Current Medications Acetaminophen (Tylenol) 650 mg PO Q6H PRN PRN Reason: Mild Pain/Headache/T above 101 Stop: 01/16/17 21:18 Last Admin: 11/18/16 00:05 Dose: 650 mg Albuterol/Ipratropium (Duoneb Neb) 3 ml HHN [id number] [facility] Stop: 01/17/17 14:59 Last Admin: 11/20/16 11:03 Dose: 3 ml Budesonide (Pulmicort) 0.5 mg HHN BIDRT [facility] Stop: 01/17/17 18:59 Last Admin: 11/20/16 07:19 Dose: 0.5 mg Enoxaparin Sodium (Lovenox) 30 mg SUBQ DAILY [facility] Stop: 01/17/17 08:59 Last Admin: 11/20/16 09:17 Dose: 30 mg Dextrose/Sodium Chloride (D5-0.45ns) 1,000 mls @ 100 mls/hr IV .Q10H [facility] Stop: 01/16/17 21:29 Last Admin: 11/19/16 17:01 Dose: 100 mls/hr Piperacillin Sod/Tazobactam (Sod 3.375 gm/ Sodium Chloride) 50 mls @ 100 mls/ hr IV Q6HR [facility] Stop: 01/16/17 21:59 Last Admin: 11/20/16 06:00 Dose: 100 mls/hr Vancomycin HCl 1.5 gm/ Sodium (Chloride) 500 mls @ 250 mls/hr IV Q12H [facility] Stop: 01/17/17 19:59 Last Admin: 11/20/16 09:13 Dose: 250 mls/hr Lactobacillus Rhamnosus (Culturelle) 1 each PO DAILY [facility] Stop: 01/20/17 08:59 Lorazepam (Ativan) 1 mg IVP Q4H PRN; Protocol PRN Reason: Anxiety/Agitation Stop: 01/16/17 21:18 Miscellaneous (Vancomycin Iv Per Pharmacy) 1 [facility] PRN PRN PRN Reason: PROTOCOL Stop: 01/17/17 17:43 Miscellaneous ([employer] Prophylaxis Screen/ Admission) 1 [facility] PRN PRN PRN Reason: PROTOCOL Stop: 01/19/17 09:31 Miscellaneous (Probiotic Screen) 1 [facility] PRN PRN PRN Reason: PROTOCOL Stop: 01/19/17 09:35 Ondansetron HCl (Zofran) 4 mg IVP Q6H PRN PRN Reason: Nausea / Vomiting Stop: 01/16/17 21:18 General: no acute distress, other (obese) HEENT: atraumatic, normocephalic, PERRLA, EOMI, moist mucous membrane Neck: supple, no thyromegaly Cardiovascular: S1S2, regular Lungs: clear to auscultation bilaterally, clear to percussion Abdomen: soft, drain (Mijares clearer urine.), no tender, no distended Extremities: no cyanosis, no clubbing Neurological: awake, alert, oriented Skin: intact Infectious Disease Assmt/Plan - Problem List Patient Problems: All Active Problems ALTERED MENTAL STATUS (Acute) - Assessment Assessment: 1. CN staph sepsis. 2. cardiomyopathy. 3. Cellulitis of bith legs. 4. [place]. 5. COPD. 6. HTN. 7. CHF. 8. Obesity. 9. highly suspect uti Plan: Will continue vanco IV and zosyn. Repeat blood c/s. (Ordered yesterday). Repeat ua. urine culture (orderedyesterday). 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 Nutritional Asmnt/Malnutr-PDOC - Dietary Evaluation Malnutrition Findings (Please click <Entered> for more info): Nutritional Asmnt/Malnutrition Start: 11/19/16 14: 33 Text: Status: Complete Freq: Document 11/19/16 14:33 GSUN (Rec: 11/19/16 14:49 GSUN [id number]) Nutritional Asmnt/Malnutrition Patient General Information Nutritional Screening High Risk Screening Diagnosis Hyperthermia, acute resp failure, bilateral LE cellulitis, HTN Pertinent Medical Hx/Surgical Hx HTN, hyperlipidemia Subjective Information [address] visited pt twice yesterday 11/18/2016, and once today before noon, pt was asleep and on bipap all attempts. Pt was ordered low sodium diet dinner yesterday, ate 100%. Spoke to CHRISTY Webster today, pt ate 100% breakfast, good appettie, no difficulties chewing/swallowing. Current Diet Order/ Nutrition Support Low sodium Pertinent Medications D5-0.45ns, Vancomycin Pertinent Labs 11/17: triglycerides 262H, cholesterol 252H Nutritional Hx/Data Height 1.85 m Height (Calculated Centimeters) 185.4 Current Weight (lbs) 152.226 kg Weight (Calculated Kilograms) 152.2 Weight (Calculated Grams) 670295.6 [place] Body Weight 184 Weight Status Morbidly Obese GI Symptoms Skin Integrity/Comment: Lewis 13. Bilateral lower extremity non-pitting 2+ Current %PO Good (75-100%) Estimated Nutritional Goals BEE in Kcals: Adj wt of IBW Calories/Kcals/Kg AdjBw 222.5lb/101.1kg Kcals Calculated 2528-3033kcal (25-30kcal/kg) Protein: Adj wt of IBW Protein Calculated 101g (1g/kg) Fluid: ml 2528-3033ml (1ml/kcal) Nutritional Problem 1. Problem Problem Malnutrition related to Etiology energy inbalance, possibly excessive PO intake aeb Signs/Symptoms: BMI >40 Malnutrition Related to Morbid Obesity Malnutrition related to morbid obesity BMI> or equal to 40 Query Text:(Any 1 Criteria met) Intervention/Recommendation Comments 1. Continue with current diet order. 2. Current diet order providing to meet 90% of lower end of kcal needs. 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 If pt does not feel satiety, pt may have double portions low fat low sodium entrees or sides. Expected Outcomes/Goals Expected Outcomes/Goals 1. PO intake to meet at least 75% of estimated nutritional needs.
[2016-11-20 12:00] LABS: ABG SOURCE Arterial; HCO3 31.2 mEq/L (20.0-26.0); pH 7.37 (7.35-7.45)
[2016-11-20 12:01] LABS: ALLEN TEST PASS; CRITICAL VALUES REPORTED BY PW; FIO2 36
--- NOTE | 2016-11-20 18:31 | General Progress Note ---
Subjective - Review of Systems Service Date: 11/20/16 Subjective: Patient is seen and examined in ICU bed 9. Patient is feeling better. [employer]inder[employer] Manager's note has been reviewed. Patient's denies any chest pain, shortness of breath, palpitation, dizziness, headache, fever, chills. Objective - Results Result Diagrams: 11/20/16 05:14 11/20/16 05:14 Recent Labs: Laboratory Last Values WBC 9.1 Th/cmm (4.8-10.8) 11/20/16 05:14 RBC 4.61 Mil/cmm (4.30-5.70) 11/20/16 05:14 Hgb 14.4 gm/dL (13.2-17.3) 11/20/16 05:14 Hct 43.0 % (39.0-49.0) 11/20/16 05:14 MCV 93.3 fl (80-99) 11/20/16 05:14 MCH 31.2 pg (26.0-30.0) H 11/20/16 05:14 MCHC Differential 33.4 pg (28.0-36.0) 11/20/16 05:14 RDW 13.9 % (11.5-20.0) 11/20/16 05:14 Plt Count 189 Th/cmm (150-400) 11/20/16 05:14 MPV 7.4 fl 11/20/16 05:14 Neutrophils % 76.8 % (40.0-80.0) 11/20/16 05:14 Lymphocytes % 12.8 % (20.0-50.0) L 11/20/16 05:14 Monocytes % 6.4 % (2.0-10.0) 11/20/16 05:14 Eosinophils % 3.2 % (0.0-5.0) 11/20/16 05:14 Basophils % 0.8 % (0.0-2.0) 11/20/16 05:14 Neutrophils (Manual) 67 % (40-80) 11/18/16 06:15 Lymphocytes 22 % (20-50) 11/18/16 06:15 Monocytes 11 % (2-10) H 11/18/16 06:15 Platelet Estimate ADEQUATE (NORMAL) 11/18/16 06:15 Platelet Morphology NORMAL (NORMAL) 11/18/16 06:15 RBC Morph Micro Appear NORMAL (NORMAL) 11/18/16 06:15 PT 11.0 SECONDS (9.5-11.5) 11/17/16 18:30 INR 1.06 (0.5-1.4) 11/17/16 18:30 PTT (Actin FS) 21.6 SECONDS (26.0-38.0) L 11/17/16 18:30 D-Dimer 2480 ng/mL (100-400) H 11/17/16 21:08 Specimen Source Arterial 11/20/16 11:52 Sample Site Right Radial 11/20/16 11:52 pH 7.37 (7.35-7.45) 11/20/16 11:52 pCO2 61.0 mmHg (35.0-45.0) H* 11/20/16 11:52 pO2 101.0 mmHg (80.0-100.0) H 11/20/16 11:52 HCO3 31.2 mEq/L (20.0-26.0) H 11/20/16 11:52 Base Excess 8.0 mEq/L (-3.0-3.0) H 11/20/16 11:52 O2 Saturation 98.0 % (92.0-100.0) 11/20/16 11:52 Travis Test PASS 11/20/16 11:52 Vent Rate NA 11/19/16 09:50 Inspired O2 36 11/20/16 11:52 Tidal Volume NA 11/19/16 09:50 PEEP NA 11/19/16 09:50 Pressure (ins/psv/peep) NA 11/19/16 09:50 Critical Value PW 11/20/16 11:52 Sodium 132 mEq/L (136-145) L 11/20/16 05:14 Potassium 3.9 mEq/L (3.5-5.1) 11/20/16 05:14 Chloride 100 mEq/L (98-107) 11/20/16 05:14 Carbon Dioxide 28.3 mEq/L (21.0-31.0) 11/20/16 05:14 Anion Gap 7.6 (7.0-16.0) 11/20/16 05:14 BUN 10 mg/dL (7-25) 11/20/16 05:14 Creatinine 1.0 mg/dL (0.7-1.3) 11/20/16 05:14 Est GFR ( Amer) > 60.0 ml/min (>90) 11/20/16 05:14 Est GFR (Non-Af Amer) > 60.0 ml/min 11/20/16 05:14 BUN/Creatinine Ratio 10.0 11/20/16 05:14 Glucose 126 mg/dL (70-105) H 11/20/16 05:14 Hemoglobin A1c % 5.7 % (4.0-6.0) 11/17/16 18:30 Whole Bld Lactic Acid 2.11 mmol/L (0.60-1.99) H* 11/17/16 21:04 Calcium 8.3 mg/dL (8.6-10.3) L 11/20/16 05:14 Magnesium 2.2 mg/dL (1.9-2.7) 11/18/16 06:15 Total Bilirubin 0.7 mg/dL (0.3-1.0) 11/20/16 05:14 AST 44 U/L (13-39) H 11/20/16 05:14 ALT 71 U/L (7-52) H 11/20/16 05:14 Alkaline Phosphatase 64 U/L (34-104) 11/20/16 05:14 Ammonia 60 umol/L (16-53) H 11/19/16 04:50 Creatine Kinase 934 U/L (30-223) H 11/18/16 14:11 CK-MB (CK-2) 4.7 ng/mL (0.6-6.3) 11/18/16 14:11 Troponin I 0.06 ng/mL (0.01-0.05) H D 11/18/16 22:39 B-Natriuretic Peptide 21.1 pg/mL (5.0-100.0) 11/18/16 06:15 Total Protein 6.8 gm/dL (6.0-8.3) 11/20/16 05:14 Albumin 3.4 gm/dL (4.2-5.5) L 11/20/16 05:14 Globulin 3.4 gm/dL 11/20/16 05:14 Albumin/Globulin Ratio 1.0 (1.0-1.8) 11/20/16 05:14 Triglycerides 262 mg/dL (<150) H 11/17/16 18:30 Cholesterol 252 mg/dL (<200) H 11/17/16 18:30 LDL Cholesterol Direct 170 mg/dL (75-193) 11/17/16 18:30 HDL Cholesterol 52 mg/dL (23-92) 11/17/16 18:30 TSH 2.02 uIU/ml (0.34-5.60) 11/17/16 18:30 Urine Source CLEAN C 11/18/16 07:30 Urine Color YELLOW 11/18/16 07:30 Urine Clarity SLIGHT HAZY (CLEAR) 11/18/16 07:30 Urine pH 5.5 11/18/16 07:30 Ur Specific [place] 1.015 (1.005-1.030) 11/18/16 07:30 Urine Protein TRACE mg/dL (NEGATIVE) 11/18/16 07:30 Urine Glucose (UA) NEGATIVE mg/dL (NEGATIVE) 11/18/16 07:30 Urine Ketones NEGATIVE mg/dL (NEGATIVE) 11/18/16 07:30 Urine Blood MODERATE (NEGATIVE) H 11/18/16 07:30 Urine Nitrate NEGATIVE (NEGATIVE) 11/18/16 07:30 Urine Bilirubin NEGATIVE (NEGATIVE) 11/18/16 07:30 Urine Urobilinogen 0.2 E.U./dL (0.2 - 1.0) 11/18/16 07:30 Ur Leukocyte Esterase NEGATIVE (NEGATIVE) 11/18/16 07:30 Urine RBC 2-5 /hpf (0-5) H 11/18/16 07:30 Urine WBC 0-2 /hpf (0-5) 11/18/16 07:30 Ur Epithelial Cells FEW /lpf (FEW) 11/18/16 07:30 Urine Bacteria NONE SEEN /hpf (NONE SEEN) 11/18/16 07:30 Urine Opiates Screen NEGATIVE (NEGATIVE) 11/18/16 07:30 Urine Methadone Screen NEGATIVE (NEGATIVE) 11/18/16 07:30 Ur Barbiturates Screen NEGATIVE (NEGATIVE) 11/18/16 07:30 Ur Tricyclics Screen NEGATIVE (NEGATIVE) 11/18/16 07:30 Ur Phencyclidine Scrn NEGATIVE (NEGATIVE) 11/18/16 07:30 Amphetamines Screen POSITIVE (NEGATIVE) H 11/18/16 07:30 U Methamphetamines Scrn POSITIVE (NEGATIVE) H 11/18/16 07:30 U Benzodiazepines Scrn NEGATIVE (NEGATIVE) 11/18/16 07:30 U Cocaine Metab Screen NEGATIVE (NEGATIVE) 11/18/16 07:30 U Cannabinoids Screen NEGATIVE (NEGATIVE) 11/18/16 07:30 Ethyl Alcohol < 10 mg/dL (0-10) 11/17/16 18:30 RPR NONREACTIVE (NONREACTIVE) 11/17/16 18:30 - Physical Exam Vitals and I&O: Vital Signs Temp 98.6 F 11/20/16 12:00 Pulse 85 11/20/16 15:40 Resp 24 11/20/16 15:40 BP 130/78 11/20/16 14:00 Pulse Ox 93 11/20/16 15:40 Intake & Output 11/19/16 11/20/16 11/20/16 18:59 06:59 18:59 Intake Total 1600 1400 550 Output Total 1150 Balance 1600 250 550 Weight (lbs) 152.209 kg 157.533 kg Intake: Intake, IV Amount 1600 600 550 D5-0.45NS 1,000 ml @ 100 1000 mls/hr IV .Q10H [facility] Rx#: [id number] Piperacillin Sodium/ 100 100 50 Tazobact 3.375 gm In Sodium Chloride 0.9% 50 ml @ 100 mls/hr IV Q6HR [facility] Rx#:[id number] Vancomycin HCl 1.5 gm In 500 500 500 Sodium Chloride 0.9% 500 ml @ 250 mls/hr IV Q12H [facility] Rx#:[id number] Oral 800 Output: Urine 1150 Active Medications: Current Medications Acetaminophen (Tylenol) 650 mg PO Q6H PRN PRN Reason: Mild Pain/Headache/T above 101 Stop: 01/16/17 21:18 Last Admin: 11/18/16 00:05 Dose: 650 mg Albuterol/Ipratropium (Duoneb Neb) 3 ml HHN [id number] [facility] Stop: 01/17/17 14:59 Last Admin: 11/20/16 15:40 Dose: 3 ml Budesonide (Pulmicort) 0.5 mg HHN BIDRT [facility] Stop: 01/17/17 18:59 Last Admin: 11/20/16 07:19 Dose: 0.5 mg Enoxaparin Sodium (Lovenox) 30 mg SUBQ DAILY [facility] Stop: 01/17/17 08:59 Last Admin: 11/20/16 09:17 Dose: 30 mg Dextrose/Sodium Chloride (D5-0.45ns) 1,000 mls @ 100 mls/hr IV .Q10H [facility] Stop: 01/16/17 21:29 Last Admin: 11/19/16 17:01 Dose: 100 mls/hr Piperacillin Sod/Tazobactam (Sod 3.375 gm/ Sodium Chloride) 50 mls @ 100 mls/ hr IV Q6HR [facility] Stop: 01/16/17 21:59 Last Infusion: 11/20/16 14:36 Dose: Infused Vancomycin HCl 1.5 gm/ Sodium (Chloride) 500 mls @ 250 mls/hr IV Q12H [facility] Stop: 01/17/17 19:59 Last Infusion: 11/20/16 13:18 Dose: Infused Lactobacillus Rhamnosus (Culturelle) 1 each PO DAILY [facility] Stop: 01/20/17 08:59 Lorazepam (Ativan) 1 mg IVP Q4H PRN; Protocol PRN Reason: Anxiety/Agitation Stop: 01/16/17 21:18 Miscellaneous (Vancomycin Iv Per Pharmacy) 1 ea PRN PRN PRN Reason: PROTOCOL Stop: 01/17/17 17:43 Miscellaneous (Vte Chemical Prophylaxis Screen/ Admission) 1 ea PRN PRN PRN Reason: PROTOCOL Stop: 01/19/17 09:31 Miscellaneous (Probiotic Screen) 1 ea PRN PRN PRN Reason: PROTOCOL Stop: 01/19/17 09:35 Ondansetron HCl (Zofran) 4 mg IVP Q6H PRN PRN Reason: Nausea / Vomiting Stop: 01/16/17 21:18 General: Alert, Oriented x3, No acute distress HEENT: Atraumatic, PERRLA, Mucous membr. moist/pink Neck: Supple Cardiovascular: Regular rate, Normal S1, Normal S2 Lungs: Other (diffuse rhonchi.) Abdomen: Bowel sounds, Soft Extremities: Clubbing, Other (bilateral chronic venous stasis changes with erythema.) Neurological: Normal gait Skin: Other (unremarkable) Assessment/Plan - Problem List Patient Problems: All Active Problems ALTERED MENTAL STATUS (Acute) - Assessment Assessment: Current Active Problems Problem Status Onset ALTERED MENTAL STATUS Acute Hyperthermia. Acute Resp failure Bilateral LE cellulitis. Hypertension Hyperlipedemia. Obesity CHF. Past lipid dysfunction. Most likely EVANS DJ - Plan Plan: Transferred to MedSur floor. DC Mijares catheter. IV antibiotic. Increase activity. Continue oxygen nebulizer treatment. Monitor the blood pressure and vital signs. Continue Antihypertensive medication as ordered. General nursing care. Follow lab. Follow content management consultant recommendations. Care plan reviewed with RN and patient. Nutritional Asmnt/Malnutr-PDOC - Dietary Evaluation Malnutrition Findings (Please click <Entered> for more info): Nutritional Asmnt/Malnutrition Start: 11/19/16 14: 33 Text: Status: Complete Freq: Document 11/19/16 14:33 GSUN (Rec: 11/19/16 14:49 [email or web address] [email or web address]) Nutritional Asmnt/Malnutrition Patient General Information Nutritional Screening High Risk Screening Diagnosis Hyperthermia, acute resp failure, bilateral LE cellulitis, HTN Pertinent Medical Hx/Surgical Hx HTN, hyperlipidemia Subjective Information 61 [address] visited pt twice yesterday 11/18/2016, and once today before noon, pt was asleep and on bipap all attempts. Pt was ordered low sodium diet dinner yesterday, ate 100%. Spoke to CHRISTY Webster today, pt ate 100% breakfast, good appettie, no difficulties chewing/swallowing. Current Diet Order/ Nutrition Support Low sodium Pertinent Medications D5-0.45ns, Vancomycin Pertinent Labs 11/17: triglycerides 262H, cholesterol 252H Nutritional Hx/Data Height 1.85 m Height (Calculated Centimeters) 185.4 Current Weight (lbs) 152.226 kg Weight (Calculated Kilograms) 152.2 Weight (Calculated Grams) 647865.6 [place] Body Weight 184 Weight Status Morbidly Obese GI Symptoms Skin Integrity/Comment: Lewis 13. Bilateral lower extremity non-pitting 2+ Current %PO Good (75-100%) Estimated Nutritional Goals BEE in Kcals: Adj wt of IBW Calories/Kcals/Kg AdjBw 222.5lb/101.1kg Kcals Calculated 2528-3033kcal (25-30kcal/kg) Protein: Adj wt of IBW Protein Calculated 101g (1g/kg) Fluid: ml 2528-3033ml (1ml/kcal) Nutritional Problem 1. Problem Problem Malnutrition related to Etiology energy inbalance, possibly excessive PO intake aeb Signs/Symptoms: BMI >40 Malnutrition Related to Morbid Obesity Malnutrition related to morbid obesity BMI> or equal to 40 Query Text:(Any 1 Criteria met) Intervention/Recommendation Comments 1. Continue with current diet order. 2. Current diet order providing to meet 90% of lower end of kcal needs. Weight trend towards IBW preferred as senior care goal. If pt does not feel satiety, pt may have double portions low fat low sodium entrees or sides. Expected Outcomes/Goals Expected Outcomes/Goals 1. PO intake to meet at least 75% of estimated nutritional needs.
[2016-11-21 05:20] LABS: % BASOPHILS 0.6 % (0.0-2.0); % LYMPHOCYTES 9.3 % (20.0-50.0); % MONOCYTES 8.8 % (2.0-10.0); % NEUTROPHILS 80.3 % (40.0-80.0); HEMATOCRIT 40.9 % (39.0-49.0); HEMOGLOBIN 13.6 gm/dL (13.2-17.3); MEAN CELL VOLUME 92.7 fl (80-99); MEAN CORPUSCULAR HEMOGLOBIN 30.7 pg (26.0-30.0); MEAN CORPUSCULAR HGB CONC 33.1 pg (28.0-36.0); NEUTROPHILE ABSOLUTE 8.9 Th/cmm (1.8-8.0); PLATELET COUNT 211 Th/cmm (150-400); RED BLOOD COUNT 4.41 Mil/cmm (4.30-5.70); RED CELL DISTRIBUTION WIDTH 13.4 % (11.5-20.0)
[2016-11-21 05:28] LABS: WHITE BLOOD COUNT 11.1 Th/cmm (4.8-10.8)
[2016-11-21 05:36] LABS: ANION GAP 6.5 (7.0-16.0); BUN - UREA NITROGEN 14 mg/dL (7-25); CALCIUM SERUM 8.2 mg/dL (8.6-10.3); CARBON DIOXIDE 30.4 mEq/L (21.0-31.0); CHLORIDE 100 mEq/L (98-107); CREATININE - SERUM 1.4 mg/dL (0.7-1.3); GLUCOSE 128 mg/dL (70-105); POTASSIUM SERUM 3.9 mEq/L (3.5-5.1); SODIUM SERUM 133 mEq/L (136-145)
[2016-11-21 05:37] LABS: ALKALINE PHOSPHATASE 63 U/L (34-104); BILIRUBIN,TOTAL 0.9 mg/dL (0.3-1.0); SGOT 60 U/L (13-39); SGPT/ALT 90 U/L (7-52)
[2016-11-21] MEDS: Budesonide 0.5 Mg/2 mL Ud HHN SCH ×2 (07:49→21:21)
[2016-11-21] MEDS: Albuterol/Ipratropium Neb 3 ML AERS HHN SCH ×4 (07:49→21:21)
[2016-11-21] MEDS: Enoxaparin 30 mg/0.3 mL 0.3mL Syr SUBQ SCH (08:21)
[2016-11-21] MEDS: Lactobacillus Rhamnosus 10 Billion CFU Capsule PO SCH (08:21)
[2016-11-21] MEDS: Vancomycin HCl 1.5 GM in Sodium Chloride 0.9% 500 ML IV SCH ×2 (09:02→20:31)
--- NOTE | 2016-11-21 09:38 | General Progress Note ---
Subjective - Review of Systems Subjective: Patient is seen and examined. Patient is feeling better. Patient's denies any chest pain, shortness of breath, palpitation, dizziness, headache, fever, chills. Objective - Results Result Diagrams: 11/21/16 04:36 11/21/16 04:36 Recent Labs: Laboratory Last Values WBC 11.1 Th/cmm (4.8-10.8) H D 11/21/16 04:36 RBC 4.41 Mil/cmm (4.30-5.70) 11/21/16 04:36 Hgb 13.6 gm/dL (13.2-17.3) 11/21/16 04:36 Hct 40.9 % (39.0-49.0) 11/21/16 04:36 MCV 92.7 fl (80-99) 11/21/16 04:36 MCH 30.7 pg (26.0-30.0) H 11/21/16 04:36 MCHC Differential 33.1 pg (28.0-36.0) 11/21/16 04:36 RDW 13.4 % (11.5-20.0) 11/21/16 04:36 Plt Count 211 Th/cmm (150-400) 11/21/16 04:36 MPV 8.0 fl 11/21/16 04:36 Neutrophils % 80.3 % (40.0-80.0) H 11/21/16 04:36 Lymphocytes % 9.3 % (20.0-50.0) L 11/21/16 04:36 Monocytes % 8.8 % (2.0-10.0) 11/21/16 04:36 Eosinophils % 1.0 % (0.0-5.0) 11/21/16 04:36 Basophils % 0.6 % (0.0-2.0) 11/21/16 04:36 Neutrophils (Manual) 67 % (40-80) 11/18/16 06:15 Lymphocytes 22 % (20-50) 11/18/16 06:15 Monocytes 11 % (2-10) H 11/18/16 06:15 Platelet Estimate ADEQUATE (NORMAL) 11/18/16 06:15 Platelet Morphology NORMAL (NORMAL) 11/18/16 06:15 RBC Morph Micro Appear NORMAL (NORMAL) 11/18/16 06:15 PT 11.0 SECONDS (9.5-11.5) 11/17/16 18:30 INR 1.06 (0.5-1.4) 11/17/16 18:30 PTT (Actin FS) 21.6 SECONDS (26.0-38.0) L 11/17/16 18:30 D-Dimer 2480 ng/mL (100-400) H 11/17/16 21:08 Specimen Source Arterial 11/20/16 11:52 Sample Site Right Radial 11/20/16 11:52 pH 7.37 (7.35-7.45) 11/20/16 11:52 pCO2 61.0 mmHg (35.0-45.0) H* 11/20/16 11:52 pO2 101.0 mmHg (80.0-100.0) H 11/20/16 11:52 HCO3 31.2 mEq/L (20.0-26.0) H 11/20/16 11:52 Base Excess 8.0 mEq/L (-3.0-3.0) H 11/20/16 11:52 O2 Saturation 98.0 % (92.0-100.0) 11/20/16 11:52 Travis Test PASS 11/20/16 11:52 Vent Rate NA 11/19/16 09:50 Inspired O2 36 11/20/16 11:52 Tidal Volume NA 11/19/16 09:50 PEEP NA 11/19/16 09:50 Pressure (ins/psv/peep) NA 11/19/16 09:50 Critical Value PW 11/20/16 11:52 Sodium 133 mEq/L (136-145) L 11/21/16 04:36 Potassium 3.9 mEq/L (3.5-5.1) 11/21/16 04:36 Chloride 100 mEq/L (98-107) 11/21/16 04:36 Carbon Dioxide 30.4 mEq/L (21.0-31.0) 11/21/16 04:36 Anion Gap 6.5 (7.0-16.0) L 11/21/16 04:36 BUN 14 mg/dL (7-25) 11/21/16 04:36 Creatinine 1.4 mg/dL (0.7-1.3) H 11/21/16 04:36 Est GFR ( Amer) > 60.0 ml/min (>90) 11/21/16 04:36 Est GFR (Non-Af Amer) 54.9 ml/min 11/21/16 04:36 BUN/Creatinine Ratio 10.0 11/21/16 04:36 Glucose 128 mg/dL (70-105) H 11/21/16 04:36 Hemoglobin A1c % 5.7 % (4.0-6.0) 11/17/16 18:30 Whole Bld Lactic Acid 2.11 mmol/L (0.60-1.99) H* 11/17/16 21:04 Calcium 8.2 mg/dL (8.6-10.3) L 11/21/16 04:36 Magnesium 2.2 mg/dL (1.9-2.7) 11/18/16 06:15 Total Bilirubin 0.9 mg/dL (0.3-1.0) 11/21/16 04:36 AST 60 U/L (13-39) H 11/21/16 04:36 ALT 90 U/L (7-52) H 11/21/16 04:36 Alkaline Phosphatase 63 U/L (34-104) 11/21/16 04:36 Ammonia 60 umol/L (16-53) H 11/19/16 04:50 Creatine Kinase 934 U/L (30-223) H 11/18/16 14:11 CK-MB (CK-2) 4.7 ng/mL (0.6-6.3) 11/18/16 14:11 Troponin I 0.06 ng/mL (0.01-0.05) H D 11/18/16 22:39 B-Natriuretic Peptide 21.1 pg/mL (5.0-100.0) 11/18/16 06:15 Total Protein 6.5 gm/dL (6.0-8.3) 11/21/16 04:36 Albumin 3.3 gm/dL (4.2-5.5) L 11/21/16 04:36 Globulin 3.2 gm/dL 11/21/16 04:36 Albumin/Globulin Ratio 1.0 (1.0-1.8) 11/21/16 04:36 Triglycerides 262 mg/dL (<150) H 11/17/16 18:30 Cholesterol 252 mg/dL (<200) H 11/17/16 18:30 LDL Cholesterol Direct 170 mg/dL (75-193) 11/17/16 18:30 HDL Cholesterol 52 mg/dL (23-92) 11/17/16 18:30 TSH 2.02 uIU/ml (0.34-5.60) 11/17/16 18:30 Urine Source CLEAN C 11/18/16 07:30 Urine Color YELLOW 11/18/16 07:30 Urine Clarity SLIGHT HAZY (CLEAR) 11/18/16 07:30 Urine pH 5.5 11/18/16 07:30 Ur Specific [place] 1.015 (1.005-1.030) 11/18/16 07:30 Urine Protein TRACE mg/dL (NEGATIVE) 11/18/16 07:30 Urine Glucose (UA) NEGATIVE mg/dL (NEGATIVE) 11/18/16 07:30 Urine Ketones NEGATIVE mg/dL (NEGATIVE) 11/18/16 07:30 Urine Blood MODERATE (NEGATIVE) H 11/18/16 07:30 Urine Nitrate NEGATIVE (NEGATIVE) 11/18/16 07:30 Urine Bilirubin NEGATIVE (NEGATIVE) 11/18/16 07:30 Urine Urobilinogen 0.2 E.U./dL (0.2 - 1.0) 11/18/16 07:30 Ur Leukocyte Esterase NEGATIVE (NEGATIVE) 11/18/16 07:30 Urine RBC 2-5 /hpf (0-5) H 11/18/16 07:30 Urine WBC 0-2 /hpf (0-5) 11/18/16 07:30 Ur Epithelial Cells FEW /lpf (FEW) 11/18/16 07:30 Urine Bacteria NONE SEEN /hpf (NONE SEEN) 11/18/16 07:30 Vancomycin Peak 7.8 ug/mL (30.0-40.0) L 11/20/16 19:00 Urine Opiates Screen NEGATIVE (NEGATIVE) 11/18/16 07:30 Urine Methadone Screen NEGATIVE (NEGATIVE) 11/18/16 07:30 Ur Barbiturates Screen NEGATIVE (NEGATIVE) 11/18/16 07:30 Ur Tricyclics Screen NEGATIVE (NEGATIVE) 11/18/16 07:30 Ur Phencyclidine Scrn NEGATIVE (NEGATIVE) 11/18/16 07:30 Amphetamines Screen POSITIVE (NEGATIVE) H 11/18/16 07:30 U Methamphetamines Scrn POSITIVE (NEGATIVE) H 11/18/16 07:30 U Benzodiazepines Scrn NEGATIVE (NEGATIVE) 11/18/16 07:30 U Cocaine Metab Screen NEGATIVE (NEGATIVE) 11/18/16 07:30 U Cannabinoids Screen NEGATIVE (NEGATIVE) 11/18/16 07:30 Ethyl Alcohol < 10 mg/dL (0-10) 11/17/16 18:30 RPR NONREACTIVE (NONREACTIVE) 11/17/16 18:30 - Physical Exam Vitals and I&O: Vital Signs Temp 99.1 F 11/21/16 07:00 Pulse 88 11/21/16 08:10 Resp 18 11/21/16 08:10 BP 156/95 11/21/16 07:00 Pulse Ox 97 11/21/16 08:10 Intake & Output 11/20/16 11/21/16 11/21/16 18:59 06:59 18:59 Intake Total 550 1850 Output Total 4700 Balance 550 -2850 Weight (lbs) 155.582 kg Intake: Intake, IV Amount 550 600 Piperacillin Sodium/ 50 100 Tazobact 3.375 gm In Sodium Chloride 0.9% 50 ml @ 100 mls/hr IV Q6HR [facility] Rx#:[id number] Vancomycin HCl 1.5 gm In 500 500 Sodium Chloride 0.9% 500 ml @ 250 mls/hr IV Q12H [facility] Rx#:[id number] Oral 1250 Output: Urine 4700 Active Medications: Current Medications Acetaminophen (Tylenol) 650 mg PO Q6H PRN PRN Reason: Mild Pain/Headache/T above 101 Stop: 01/16/17 21:18 Last Admin: 11/18/16 00:05 Dose: 650 mg Albuterol/Ipratropium (Duoneb Neb) 3 ml HHN [id number] [facility] Stop: 01/17/17 14:59 Last Admin: 11/21/16 07:49 Dose: 3 ml Budesonide (Pulmicort) 0.5 mg HHN BIDRT [facility] Stop: 01/17/17 18:59 Last Admin: 11/21/16 07:49 Dose: 0.5 mg Enoxaparin Sodium (Lovenox) 30 mg SUBQ DAILY [facility] Stop: 01/17/17 08:59 Last Admin: 11/21/16 08:21 Dose: 30 mg Dextrose/Sodium Chloride (D5-0.45ns) 1,000 mls @ 100 mls/hr IV .Q10H [facility] Stop: 01/16/17 21:29 Last Admin: 11/19/16 17:01 Dose: 100 mls/hr Piperacillin Sod/Tazobactam (Sod 3.375 gm/ Sodium Chloride) 50 mls @ 100 mls/ hr IV Q6HR [facility] Stop: 01/16/17 21:59 Last Admin: 11/21/16 06:00 Dose: 100 mls/hr Vancomycin HCl 1.5 gm/ Sodium (Chloride) 500 mls @ 250 mls/hr IV Q12H [facility] Stop: 01/17/17 19:59 Last Admin: 11/21/16 09:02 Dose: 250 mls/hr Lactobacillus Rhamnosus (Culturelle) 1 each PO DAILY [facility] Stop: 01/20/17 08:59 Last Admin: 11/21/16 08:21 Dose: 1 each Lorazepam (Ativan) 1 mg IVP Q4H PRN; Protocol PRN Reason: Anxiety/Agitation Stop: 01/16/17 21:18 Miscellaneous (Vancomycin Iv Per Pharmacy) 1 ea PRN PRN PRN Reason: PROTOCOL Stop: 01/17/17 17:43 Miscellaneous (Vte Chemical Prophylaxis Screen/ Admission) 1 ea PRN PRN PRN Reason: PROTOCOL Stop: 01/19/17 09:31 Miscellaneous (Probiotic Screen) 1 [facility] PRN PRN PRN Reason: PROTOCOL Stop: 01/19/17 09:35 Ondansetron HCl (Zofran) 4 mg IVP Q6H PRN PRN Reason: Nausea / Vomiting Stop: 01/16/17 21:18 General: Alert, Oriented x3, No acute distress HEENT: Atraumatic, PERRLA, Mucous membr. moist/pink Neck: Supple Cardiovascular: Regular rate, Normal S1, Normal S2 Lungs: Other (diffuse rhonchi.) Abdomen: Bowel sounds, Soft Extremities: Clubbing, Other (bilateral chronic venous stasis changes with erythema.) Neurological: Normal gait Skin: Other (unremarkable) Assessment/Plan - Problem List Patient Problems: All Active Problems ALTERED MENTAL STATUS (Acute) - Assessment Assessment: Current Active Problems Problem Status Onset ALTERED MENTAL STATUS Acute Hyperthermia. Acute Resp failure Bilateral LE cellulitis. Hypertension Hyperlipedemia. Obesity CHF. Diastolic dysfunction. Most likely EVANS DJ - Plan Plan: Transferred to MedSur floor. IV antibiotic. Increase activity. Continue oxygen nebulizer treatment. Monitor the blood pressure and vital signs. Continue Antihypertensive medication as ordered. General nursing care. Follow lab. Follow erp consultant recommendations. DC planning to home. Care plan reviewed with RN and patient. Nutritional Asmnt/Malnutr-PDOC - Dietary Evaluation Malnutrition Findings (Please click <Entered> for more info): Nutritional Asmnt/Malnutrition Start: 11/19/16 14: 33 Text: Status: Complete Freq: Document 11/19/16 14:33 GSUN (Rec: 11/19/16 14:49 [email or web address] [email or web address]) Nutritional Asmnt/Malnutrition Patient General Information Nutritional Screening High Risk Screening Diagnosis Hyperthermia, acute resp failure, bilateral LE cellulitis, HTN Pertinent Medical Hx/Surgical Hx HTN, hyperlipidemia Subjective Information 61 [address] visited pt twice yesterday 11/18/2016, and once today before noon, pt was asleep and on bipap all attempts. Pt was ordered low sodium diet dinner yesterday, ate 100%. Spoke to CHRISTY Webster today, pt ate 100% breakfast, good appettie, no difficulties chewing/swallowing. Current Diet Order/ Nutrition Support Low sodium Pertinent Medications D5-0.45ns, Vancomycin Pertinent Labs 11/17: triglycerides 262H, cholesterol 252H Nutritional Hx/Data Height 1.85 m Height (Calculated Centimeters) 185.4 Current Weight (lbs) 152.226 kg Weight (Calculated Kilograms) 152.2 Weight (Calculated Grams) 658827.6 [place] Body Weight 184 Weight Status Morbidly Obese GI Symptoms Skin Integrity/Comment: [place] 13. Bilateral lower extremity non-pitting 2+ Current %PO Good (75-100%) Estimated Nutritional Goals BEE in Kcals: Adj wt of IBW Calories/Kcals/Kg AdjBw 222.5lb/101.1kg Kcals Calculated 2528-3033kcal (25-30kcal/kg) Protein: Adj wt of IBW Protein Calculated 101g (1g/kg) Fluid: ml 2528-3033ml (1ml/kcal) Nutritional Problem 1. Problem Problem Malnutrition related to Etiology energy inbalance, possibly excessive PO intake aeb Signs/Symptoms: BMI >40 Malnutrition Related to Morbid Obesity Malnutrition related to morbid obesity BMI> or equal to 40 Query Text:(Any 1 Criteria met) Intervention/Recommendation Comments 1. Continue with current diet order. 2. Current diet order providing to meet 90% of lower end of kcal needs. Weight trend towards IBW preferred as longterm goal. If pt does not feel satiety, pt may have double portions low fat low sodium entrees or sides. Expected Outcomes/Goals Expected Outcomes/Goals 1. PO intake to meet at least 75% of estimated nutritional needs.
--- NOTE | 2016-11-21 21:56 | Infectious Disease Prog Note ---
Infectious Disease Subjective - Review of Systems Service Date: 11/21/16 Subjective: there is no new change, feels better. Blood culture ordered yesterday was not performed. UA and urine culture were also not performed. Infectious Disease Objective - Results Result Diagrams: 11/21/16 04:36 11/21/16 04:36 Recent Labs: Laboratory Last Values WBC 11.1 Th/cmm (4.8-10.8) H D 11/21/16 04:36 RBC 4.41 Mil/cmm (4.30-5.70) 11/21/16 04:36 Hgb 13.6 gm/dL (13.2-17.3) 11/21/16 04:36 Hct 40.9 % (39.0-49.0) 11/21/16 04:36 MCV 92.7 fl (80-99) 11/21/16 04:36 MCH 30.7 pg (26.0-30.0) H 11/21/16 04:36 MCHC Differential 33.1 pg (28.0-36.0) 11/21/16 04:36 RDW 13.4 % (11.5-20.0) 11/21/16 04:36 Plt Count 211 Th/cmm (150-400) 11/21/16 04:36 MPV 8.0 fl 11/21/16 04:36 Neutrophils % 80.3 % (40.0-80.0) H 11/21/16 04:36 Lymphocytes % 9.3 % (20.0-50.0) L 11/21/16 04:36 Monocytes % 8.8 % (2.0-10.0) 11/21/16 04:36 Eosinophils % 1.0 % (0.0-5.0) 11/21/16 04:36 Basophils % 0.6 % (0.0-2.0) 11/21/16 04:36 Neutrophils (Manual) 67 % (40-80) 11/18/16 06:15 Lymphocytes 22 % (20-50) 11/18/16 06:15 Monocytes 11 % (2-10) H 11/18/16 06:15 Platelet Estimate ADEQUATE (NORMAL) 11/18/16 06:15 Platelet Morphology NORMAL (NORMAL) 11/18/16 06:15 RBC Morph Micro Appear NORMAL (NORMAL) 11/18/16 06:15 PT 11.0 SECONDS (9.5-11.5) 11/17/16 18:30 INR 1.06 (0.5-1.4) 11/17/16 18:30 PTT (Actin FS) 21.6 SECONDS (26.0-38.0) L 11/17/16 18:30 D-Dimer 2480 ng/mL (100-400) H 11/17/16 21:08 Specimen Source Arterial 11/20/16 11:52 Sample Site Right Radial 11/20/16 11:52 pH 7.37 (7.35-7.45) 11/20/16 11:52 pCO2 61.0 mmHg (35.0-45.0) H* 11/20/16 11:52 pO2 101.0 mmHg (80.0-100.0) H 11/20/16 11:52 HCO3 31.2 mEq/L (20.0-26.0) H 11/20/16 11:52 Base Excess 8.0 mEq/L (-3.0-3.0) H 11/20/16 11:52 O2 Saturation 98.0 % (92.0-100.0) 11/20/16 11:52 Travis Test PASS 11/20/16 11:52 Vent Rate NA 11/19/16 09:50 Inspired O2 36 11/20/16 11:52 Tidal Volume NA 11/19/16 09:50 PEEP NA 11/19/16 09:50 Pressure (ins/psv/peep) NA 11/19/16 09:50 Critical Value PW 11/20/16 11:52 Sodium 133 mEq/L (136-145) L 11/21/16 04:36 Potassium 3.9 mEq/L (3.5-5.1) 11/21/16 04:36 Chloride 100 mEq/L (98-107) 11/21/16 04:36 Carbon Dioxide 30.4 mEq/L (21.0-31.0) 11/21/16 04:36 Anion Gap 6.5 (7.0-16.0) L 11/21/16 04:36 BUN 14 mg/dL (7-25) 11/21/16 04:36 Creatinine 1.4 mg/dL (0.7-1.3) H 11/21/16 04:36 Est GFR ( Amer) > 60.0 ml/min (>90) 11/21/16 04:36 Est GFR (Non-Af Amer) 54.9 ml/min 11/21/16 04:36 BUN/Creatinine Ratio 10.0 11/21/16 04:36 Glucose 128 mg/dL (70-105) H 11/21/16 04:36 Hemoglobin A1c % 5.7 % (4.0-6.0) 11/17/16 18:30 Whole Bld Lactic Acid 2.11 mmol/L (0.60-1.99) H* 11/17/16 21:04 Calcium 8.2 mg/dL (8.6-10.3) L 11/21/16 04:36 Magnesium 2.2 mg/dL (1.9-2.7) 11/18/16 06:15 Total Bilirubin 0.9 mg/dL (0.3-1.0) 11/21/16 04:36 AST 60 U/L (13-39) H 11/21/16 04:36 ALT 90 U/L (7-52) H 11/21/16 04:36 Alkaline Phosphatase 63 U/L (34-104) 11/21/16 04:36 Ammonia 60 umol/L (16-53) H 11/19/16 04:50 Creatine Kinase 934 U/L (30-223) H 11/18/16 14:11 CK-MB (CK-2) 4.7 ng/mL (0.6-6.3) 11/18/16 14:11 Troponin I 0.06 ng/mL (0.01-0.05) H D 11/18/16 22:39 B-Natriuretic Peptide 21.1 pg/mL (5.0-100.0) 11/18/16 06:15 Total Protein 6.5 gm/dL (6.0-8.3) 11/21/16 04:36 Albumin 3.3 gm/dL (4.2-5.5) L 11/21/16 04:36 Globulin 3.2 gm/dL 11/21/16 04:36 Albumin/Globulin Ratio 1.0 (1.0-1.8) 11/21/16 04:36 Triglycerides 262 mg/dL (<150) H 11/17/16 18:30 Cholesterol 252 mg/dL (<200) H 11/17/16 18:30 LDL Cholesterol Direct 170 mg/dL (75-193) 11/17/16 18:30 HDL Cholesterol 52 mg/dL (23-92) 11/17/16 18:30 TSH 2.02 uIU/ml (0.34-5.60) 11/17/16 18:30 Urine Source CLEAN C 11/18/16 07:30 Urine Color YELLOW 11/18/16 07:30 Urine Clarity SLIGHT HAZY (CLEAR) 11/18/16 07:30 Urine pH 5.5 11/18/16 07:30 Ur Specific [place] 1.015 (1.005-1.030) 11/18/16 07:30 Urine Protein TRACE mg/dL (NEGATIVE) 11/18/16 07:30 Urine Glucose (UA) NEGATIVE mg/dL (NEGATIVE) 11/18/16 07:30 Urine Ketones NEGATIVE mg/dL (NEGATIVE) 11/18/16 07:30 Urine Blood MODERATE (NEGATIVE) H 11/18/16 07:30 Urine Nitrate NEGATIVE (NEGATIVE) 11/18/16 07:30 Urine Bilirubin NEGATIVE (NEGATIVE) 11/18/16 07:30 Urine Urobilinogen 0.2 E.U./dL (0.2 - 1.0) 11/18/16 07:30 Ur Leukocyte Esterase NEGATIVE (NEGATIVE) 11/18/16 07:30 Urine RBC 2-5 /hpf (0-5) H 11/18/16 07:30 Urine WBC 0-2 /hpf (0-5) 11/18/16 07:30 Ur Epithelial Cells FEW /lpf (FEW) 11/18/16 07:30 Urine Bacteria NONE SEEN /hpf (NONE SEEN) 11/18/16 07:30 Vancomycin Peak 7.8 ug/mL (30.0-40.0) L 11/20/16 19:00 Vancomycin Trough 11.3 ug/mL (10-20) 11/21/16 19:31 Urine Opiates Screen NEGATIVE (NEGATIVE) 11/18/16 07:30 Urine Methadone Screen NEGATIVE (NEGATIVE) 11/18/16 07:30 Ur Barbiturates Screen NEGATIVE (NEGATIVE) 11/18/16 07:30 Ur Tricyclics Screen NEGATIVE (NEGATIVE) 11/18/16 07:30 Ur Phencyclidine Scrn NEGATIVE (NEGATIVE) 11/18/16 07:30 Amphetamines Screen POSITIVE (NEGATIVE) H 11/18/16 07:30 U Methamphetamines Scrn POSITIVE (NEGATIVE) H 11/18/16 07:30 U Benzodiazepines Scrn NEGATIVE (NEGATIVE) 11/18/16 07:30 U Cocaine Metab Screen NEGATIVE (NEGATIVE) 11/18/16 07:30 U Cannabinoids Screen NEGATIVE (NEGATIVE) 11/18/16 07:30 Ethyl Alcohol < 10 mg/dL (0-10) 11/17/16 18:30 RPR NONREACTIVE (NONREACTIVE) 11/17/16 18:30 - Physical Exam Vitals and I&O: Vital Signs Temp 98.8 F 11/21/16 20:00 Pulse 86 11/21/16 21:20 Resp 18 11/21/16 21:20 BP 157/68 11/21/16 20:00 Pulse Ox 96 11/21/16 21:20 Intake & Output 11/21/16 11/21/16 11/22/16 06:59 18:59 06:59 Intake Total 1900 1550 Output Total 4700 1500 Balance -2800 50 Weight (lbs) 155.582 kg 155.582 kg Intake: Intake, IV Amount 650 550 Piperacillin Sodium/ 150 50 Tazobact 3.375 gm In Sodium Chloride 0.9% 50 ml @ 100 mls/hr IV Q6HR [facility] Rx#:[id number] Vancomycin HCl 1.5 gm In 500 500 Sodium Chloride 0.9% 500 ml @ 250 mls/hr IV Q12H [facility] Rx#:[id number] Oral 1250 1000 Output: Urine 4700 1500 Active Medications: Current Medications Acetaminophen (Tylenol) 650 mg PO Q6H PRN PRN Reason: Mild Pain/Headache/T above 101 Stop: 01/16/17 21:18 Last Admin: 11/18/16 00:05 Dose: 650 mg Albuterol/Ipratropium (Duoneb Neb) 3 ml HHN [id number] [facility] Stop: 01/17/17 14:59 Last Admin: 11/21/16 21:21 Dose: 3 ml Budesonide (Pulmicort) 0.5 mg HHN BIDRT [facility] Stop: 01/17/17 18:59 Last Admin: 11/21/16 21:21 Dose: 0.5 mg Enoxaparin Sodium (Lovenox) 30 mg SUBQ DAILY [facility] Stop: 01/17/17 08:59 Last Admin: 11/21/16 08:21 Dose: 30 mg Dextrose/Sodium Chloride (D5-0.45ns) 1,000 mls @ 100 mls/hr IV .Q10H [facility] Stop: 01/16/17 21:29 Last Admin: 11/19/16 17:01 Dose: 100 mls/hr Piperacillin Sod/Tazobactam (Sod 3.375 gm/ Sodium Chloride) 50 mls @ 100 mls/ hr IV Q6HR [facility] Stop: 01/16/17 21:59 Last Admin: 11/21/16 18:24 Dose: 100 mls/hr Vancomycin HCl 1.5 gm/ Sodium (Chloride) 500 mls @ 250 mls/hr IV Q12H [facility] Stop: 01/17/17 19:59 Last Admin: 11/21/16 20:31 Dose: 250 mls/hr Lactobacillus Rhamnosus (Culturelle) 1 each PO DAILY [facility] Stop: 01/20/17 08:59 Last Admin: 11/21/16 08:21 Dose: 1 each Lorazepam (Ativan) 1 mg IVP Q4H PRN; Protocol PRN Reason: Anxiety/Agitation Stop: 01/16/17 21:18 Miscellaneous (Vancomycin Iv Per Pharmacy) 1 [facility] PRN PRN PRN Reason: PROTOCOL Stop: 01/17/17 17:43 Miscellaneous (Vte Chemical Prophylaxis Screen/ Admission) 1 [facility] PRN PRN PRN Reason: PROTOCOL Stop: 01/19/17 09:31 Miscellaneous (Probiotic Screen) 1 [facility] PRN PRN PRN Reason: PROTOCOL Stop: 01/19/17 09:35 Ondansetron HCl (Zofran) 4 mg IVP Q6H PRN PRN Reason: Nausea / Vomiting Stop: 01/16/17 21:18 General: no acute distress, other (obese) HEENT: atraumatic, normocephalic, PERRLA, EOMI, moist mucous membrane Neck: supple, no thyromegaly Cardiovascular: S1S2, regular Lungs: clear to auscultation bilaterally, clear to percussion Abdomen: soft, no tender, no distended Extremities: no cyanosis, no clubbing, no edema Neurological: awake, alert, oriented Skin: intact Infectious Disease Assmt/Plan - Problem List Patient Problems: All Active Problems ALTERED MENTAL STATUS (Acute) - Assessment Assessment: 1. CN staph sepsis. 2. cardiomyopathy. 3. Cellulitis of bith legs. 4. [place]. 5. COPD. 6. HTN. 7. CHF. 8. Obesity. 9. highly suspect uti Plan: Will continue vanco IV for two weeks and dc zosyn. Repeat blood c/s. (Ordered yesterday). Repeat ua. urine culture (ordered yesterday). hold the discharge till blood culture ordered now comes neg for 48 hrs. 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 Nutritional Asmnt/Malnutr-PDOC - Dietary Evaluation Malnutrition Findings (Please click <Entered> for more info): Nutritional Asmnt/Malnutrition Start: 11/19/16 14: 33 Text: Status: Complete Freq: Document 11/19/16 14:33 GSUN (Rec: 11/19/16 14:49 [email or web address] [email or web address]) Nutritional Asmnt/Malnutrition Patient General Information Nutritional Screening High Risk Screening Diagnosis Hyperthermia, acute resp failure, bilateral LE cellulitis, HTN Pertinent Medical Hx/Surgical Hx HTN, hyperlipidemia Subjective Information 61 [address] visited pt twice yesterday 11/18/2016, and once today before noon, pt was asleep and on bipap all attempts. Pt was ordered low sodium diet dinner yesterday, ate 100%. Spoke to CHRISTY Webster today, pt ate 100% breakfast, good appettie, no difficulties chewing/swallowing. Current Diet Order/ Nutrition Support Low sodium Pertinent Medications D5-0.45ns, Vancomycin Pertinent Labs 11/17: triglycerides 262H, cholesterol 252H Nutritional Hx/Data Height 1.85 m Height (Calculated Centimeters) 185.4 Current Weight (lbs) 152.226 kg Weight (Calculated Kilograms) 152.2 Weight (Calculated Grams) 832237.6 [place] Body Weight 184 Weight Status Morbidly Obese GI Symptoms Skin Integrity/Comment: [place] 13. Bilateral lower extremity non-pitting 2+ Current %PO Good (75-100%) Estimated Nutritional Goals BEE in Kcals: Adj wt of IBW Calories/Kcals/Kg AdjBw 222.5lb/101.1kg Kcals Calculated 2528-3033kcal (25-30kcal/kg) Protein: Adj wt of IBW Protein Calculated 101g (1g/kg) Fluid: ml 2528-3033ml (1ml/kcal) Nutritional Problem 1. Problem Problem Malnutrition related to Etiology energy inbalance, possibly excessive PO intake aeb Signs/Symptoms: BMI >40 Malnutrition Related to Morbid Obesity Malnutrition related to morbid obesity BMI> or equal to 40 Query Text:(Any 1 Criteria met) Intervention/Recommendation Comments 1. Continue with current diet order. 2. Current diet order providing to meet 90% of lower end of kcal needs. Weight trend towards IBW preferred as meat selector goal. If pt does not feel satiety, pt may have double portions low fat low sodium entrees or sides. Expected Outcomes/Goals Expected Outcomes/Goals 1. PO intake to meet at least 75% of estimated nutritional needs.
[2016-11-22] MEDS: Budesonide 0.5 Mg/2 mL Ud HHN SCH ×2 (07:49→18:57)
[2016-11-22] MEDS: Albuterol/Ipratropium Neb 3 ML AERS HHN SCH ×4 (07:49→18:57)
[2016-11-22] MEDS: Lactobacillus Rhamnosus 10 Billion CFU Capsule PO SCH (09:51)
[2016-11-22] MEDS: Enoxaparin 30 mg/0.3 mL 0.3mL Syr SUBQ SCH (09:51)
[2016-11-22 09:59] LABS: ABG SOURCE Arterial; ALLEN TEST Positive; BE(B) 8.2 mEq/L (-3.0-3.0); FIO2 21; HCO3 31.1 mEq/L (20.0-26.0); pH 7.43 (7.35-7.45)
--- NOTE | 2016-11-22 12:12 | General Progress Note ---
Subjective - Review of Systems Subjective: Patient is seen and examined. Patient is feeling better. Patient's denies any chest pain, shortness of breath, palpitation, dizziness, headache, fever, chills. Objective - Results Result Diagrams: 11/21/16 04:36 11/21/16 04:36 Recent Labs: Laboratory Last Values WBC 11.1 Th/cmm (4.8-10.8) H D 11/21/16 04:36 RBC 4.41 Mil/cmm (4.30-5.70) 11/21/16 04:36 Hgb 13.6 gm/dL (13.2-17.3) 11/21/16 04:36 Hct 40.9 % (39.0-49.0) 11/21/16 04:36 MCV 92.7 fl (80-99) 11/21/16 04:36 MCH 30.7 pg (26.0-30.0) H 11/21/16 04:36 MCHC Differential 33.1 pg (28.0-36.0) 11/21/16 04:36 RDW 13.4 % (11.5-20.0) 11/21/16 04:36 Plt Count 211 Th/cmm (150-400) 11/21/16 04:36 MPV 8.0 fl 11/21/16 04:36 Neutrophils % 80.3 % (40.0-80.0) H 11/21/16 04:36 Lymphocytes % 9.3 % (20.0-50.0) L 11/21/16 04:36 Monocytes % 8.8 % (2.0-10.0) 11/21/16 04:36 Eosinophils % 1.0 % (0.0-5.0) 11/21/16 04:36 Basophils % 0.6 % (0.0-2.0) 11/21/16 04:36 Neutrophils (Manual) 67 % (40-80) 11/18/16 06:15 Lymphocytes 22 % (20-50) 11/18/16 06:15 Monocytes 11 % (2-10) H 11/18/16 06:15 Platelet Estimate ADEQUATE (NORMAL) 11/18/16 06:15 Platelet Morphology NORMAL (NORMAL) 11/18/16 06:15 RBC Morph Micro Appear NORMAL (NORMAL) 11/18/16 06:15 PT 11.0 SECONDS (9.5-11.5) 11/17/16 18:30 INR 1.06 (0.5-1.4) 11/17/16 18:30 PTT (Actin FS) 21.6 SECONDS (26.0-38.0) L 11/17/16 18:30 D-Dimer 2480 ng/mL (100-400) H 11/17/16 21:08 Specimen Source Arterial 11/22/16 09:49 Sample Site Right Radial 11/22/16 09:49 pH 7.43 (7.35-7.45) 11/22/16 09:49 pCO2 51.0 mmHg (35.0-45.0) H 11/22/16 09:49 pO2 52.0 mmHg (80.0-100.0) L 11/22/16 09:49 HCO3 31.1 mEq/L (20.0-26.0) H 11/22/16 09:49 Base Excess 8.2 mEq/L (-3.0-3.0) H 11/22/16 09:49 O2 Saturation 87.0 % (92.0-100.0) L 11/22/16 09:49 Travis Test Positive 11/22/16 09:49 Vent Rate NA 11/22/16 09:49 Inspired O2 21 11/22/16 09:49 Tidal Volume NA 11/22/16 09:49 PEEP NA 11/22/16 09:49 Pressure (ins/psv/peep) NA 11/22/16 09:49 Critical Value LZHANG 11/22/16 09:49 Sodium 133 mEq/L (136-145) L 11/21/16 04:36 Potassium 3.9 mEq/L (3.5-5.1) 11/21/16 04:36 Chloride 100 mEq/L (98-107) 11/21/16 04:36 Carbon Dioxide 30.4 mEq/L (21.0-31.0) 11/21/16 04:36 Anion Gap 6.5 (7.0-16.0) L 11/21/16 04:36 BUN 14 mg/dL (7-25) 11/21/16 04:36 Creatinine 1.4 mg/dL (0.7-1.3) H 11/21/16 04:36 Est GFR ( Amer) > 60.0 ml/min (>90) 11/21/16 04:36 Est GFR (Non-Af Amer) 54.9 ml/min 11/21/16 04:36 BUN/Creatinine Ratio 10.0 11/21/16 04:36 Glucose 128 mg/dL (70-105) H 11/21/16 04:36 Hemoglobin A1c % 5.7 % (4.0-6.0) 11/17/16 18:30 Whole Bld Lactic Acid 2.11 mmol/L (0.60-1.99) H* 11/17/16 21:04 Calcium 8.2 mg/dL (8.6-10.3) L 11/21/16 04:36 Magnesium 2.2 mg/dL (1.9-2.7) 11/18/16 06:15 Total Bilirubin 0.9 mg/dL (0.3-1.0) 11/21/16 04:36 AST 60 U/L (13-39) H 11/21/16 04:36 ALT 90 U/L (7-52) H 11/21/16 04:36 Alkaline Phosphatase 63 U/L (34-104) 11/21/16 04:36 Ammonia 60 umol/L (16-53) H 11/19/16 04:50 Creatine Kinase 934 U/L (30-223) H 11/18/16 14:11 CK-MB (CK-2) 4.7 ng/mL (0.6-6.3) 11/18/16 14:11 Troponin I 0.06 ng/mL (0.01-0.05) H D 11/18/16 22:39 B-Natriuretic Peptide 21.1 pg/mL (5.0-100.0) 11/18/16 06:15 Total Protein 6.5 gm/dL (6.0-8.3) 11/21/16 04:36 Albumin 3.3 gm/dL (4.2-5.5) L 11/21/16 04:36 Globulin 3.2 gm/dL 11/21/16 04:36 Albumin/Globulin Ratio 1.0 (1.0-1.8) 11/21/16 04:36 Triglycerides 262 mg/dL (<150) H 11/17/16 18:30 Cholesterol 252 mg/dL (<200) H 11/17/16 18:30 LDL Cholesterol Direct 170 mg/dL (75-193) 11/17/16 18:30 HDL Cholesterol 52 mg/dL (23-92) 11/17/16 18:30 TSH 2.02 uIU/ml (0.34-5.60) 11/17/16 18:30 Urine Source CLEAN C 11/18/16 07:30 Urine Color YELLOW 11/18/16 07:30 Urine Clarity SLIGHT HAZY (CLEAR) 11/18/16 07:30 Urine pH 5.5 11/18/16 07:30 Ur Specific [place] 1.015 (1.005-1.030) 11/18/16 07:30 Urine Protein TRACE mg/dL (NEGATIVE) 11/18/16 07:30 Urine Glucose (UA) NEGATIVE mg/dL (NEGATIVE) 11/18/16 07:30 Urine Ketones NEGATIVE mg/dL (NEGATIVE) 11/18/16 07:30 Urine Blood MODERATE (NEGATIVE) H 11/18/16 07:30 Urine Nitrate NEGATIVE (NEGATIVE) 11/18/16 07:30 Urine Bilirubin NEGATIVE (NEGATIVE) 11/18/16 07:30 Urine Urobilinogen 0.2 E.U./dL (0.2 - 1.0) 11/18/16 07:30 Ur Leukocyte Esterase NEGATIVE (NEGATIVE) 11/18/16 07:30 Urine RBC 2-5 /hpf (0-5) H 11/18/16 07:30 Urine WBC 0-2 /hpf (0-5) 11/18/16 07:30 Ur Epithelial Cells FEW /lpf (FEW) 11/18/16 07:30 Urine Bacteria NONE SEEN /hpf (NONE SEEN) 11/18/16 07:30 Vancomycin Peak 7.8 ug/mL (30.0-40.0) L 11/20/16 19:00 Vancomycin Trough 11.3 ug/mL (10-20) 11/21/16 19:31 Urine Opiates Screen NEGATIVE (NEGATIVE) 11/18/16 07:30 Urine Methadone Screen NEGATIVE (NEGATIVE) 11/18/16 07:30 Ur Barbiturates Screen NEGATIVE (NEGATIVE) 11/18/16 07:30 Ur Tricyclics Screen NEGATIVE (NEGATIVE) 11/18/16 07:30 Ur Phencyclidine Scrn NEGATIVE (NEGATIVE) 11/18/16 07:30 Amphetamines Screen POSITIVE (NEGATIVE) H 11/18/16 07:30 U Methamphetamines Scrn POSITIVE (NEGATIVE) H 11/18/16 07:30 U Benzodiazepines Scrn NEGATIVE (NEGATIVE) 11/18/16 07:30 U Cocaine Metab Screen NEGATIVE (NEGATIVE) 11/18/16 07:30 U Cannabinoids Screen NEGATIVE (NEGATIVE) 11/18/16 07:30 Ethyl Alcohol < 10 mg/dL (0-10) 11/17/16 18:30 RPR NONREACTIVE (NONREACTIVE) 11/17/16 18:30 - Physical Exam Vitals and I&O: Vital Signs Temp 97.8 F 11/22/16 08:00 Pulse 95 11/22/16 11:42 Resp 20 11/22/16 11:42 BP 149/95 11/22/16 08:00 Pulse Ox 96 11/22/16 11:42 Intake & Output 11/21/16 11/22/16 11/22/16 18:59 06:59 18:59 Intake Total 1600 350 Output Total 1500 790 Balance 100 -440 Weight (lbs) 155.582 kg 159.665 kg Intake: Intake, IV Amount 600 50 Piperacillin Sodium/ 100 50 Tazobact 3.375 gm In Sodium Chloride 0.9% 50 ml @ 100 mls/hr IV Q6HR [facility] Rx#:[id number] Vancomycin HCl 1.5 gm In 500 Sodium Chloride 0.9% 500 ml @ 250 mls/hr IV Q12H [facility] Rx#:[id number] Oral 1000 300 Output: Urine 1500 790 Other: # Voids 5 # Bowel Movements 0 Active Medications: Current Medications Acetaminophen (Tylenol) 650 mg PO Q6H PRN PRN Reason: Mild Pain/Headache/T above 101 Stop: 01/16/17 21:18 Last Admin: 11/18/16 00:05 Dose: 650 mg Albuterol/Ipratropium (Duoneb Neb) 3 ml HHN [id number] [facility] Stop: 01/17/17 14:59 Last Admin: 11/22/16 11:36 Dose: 3 ml Budesonide (Pulmicort) 0.5 mg HHN BIDRT [facility] Stop: 01/17/17 18:59 Last Admin: 11/22/16 07:49 Dose: 0.5 mg Clonidine HCl (Catapres) 0.1 mg PO Q4HR PRN PRN Reason: For systolic over 150 Stop: 01/21/17 02:03 Last Admin: 11/22/16 02:16 Dose: 0.1 mg Enoxaparin Sodium (Lovenox) 30 mg SUBQ DAILY [facility] Stop: 01/17/17 08:59 Last Admin: 11/22/16 09:51 Dose: Not Given Dextrose/Sodium Chloride (D5-0.45ns) 1,000 mls @ 100 mls/hr IV .Q10H [facility] Stop: 01/16/17 21:29 Last Admin: 11/19/16 17:01 Dose: 100 mls/hr Piperacillin Sod/Tazobactam (Sod 3.375 gm/ Sodium Chloride) 50 mls @ 100 mls/ hr IV Q6HR [facility] Stop: 01/16/17 21:59 Last Admin: 11/22/16 05:53 Dose: 100 mls/hr Vancomycin HCl 1.5 gm/ Sodium (Chloride) 250 mls @ 166.667 mls/hr IV Q12HR@0800 ,2000 [facility] Stop: 01/21/17 07:23 Last Admin: 11/22/16 08:49 Dose: 166.667 mls/hr Lactobacillus Rhamnosus (Culturelle) 1 each PO DAILY [facility] Stop: 01/20/17 08:59 Last Admin: 11/22/16 09:51 Dose: Not Given Lorazepam (Ativan) 1 mg IVP Q4H PRN; Protocol PRN Reason: Anxiety/Agitation Stop: 01/16/17 21:18 Last Admin: 11/22/16 00:45 Dose: 1 mg Losartan Potassium (Cozaar) 100 mg PO DAILY [facility] Stop: 01/21/17 08:59 Last Admin: 11/22/16 09:51 Dose: Not Given Miscellaneous (Vancomycin Iv Per Pharmacy) 1 ea PRN PRN PRN Reason: PROTOCOL Stop: 01/17/17 17:43 Miscellaneous (Vte Chemical Prophylaxis Screen/ Admission) 1 ea PRN PRN PRN Reason: PROTOCOL Stop: 01/19/17 09:31 Miscellaneous (Probiotic Screen) 1 ea PRN PRN PRN Reason: PROTOCOL Stop: 01/19/17 09:35 Ondansetron HCl (Zofran) 4 mg IVP Q6H PRN PRN Reason: Nausea / Vomiting Stop: 01/16/17 21:18 General: Alert, Oriented x3, No acute distress HEENT: Atraumatic, PERRLA, Mucous membr. moist/pink Neck: Supple Cardiovascular: Regular rate, Normal S1, Normal S2 Lungs: Other (diffuse rhonchi.) Abdomen: Bowel sounds, Soft Extremities: Clubbing, Other (bilateral chronic venous stasis changes with erythema.) Neurological: Normal gait Skin: Other (unremarkable) Assessment/Plan - Problem List Patient Problems: All Active Problems ALTERED MENTAL STATUS (Acute) - Assessment Assessment: Current Active Problems Problem Status Onset ALTERED MENTAL STATUS Acute Hyperthermia. Acute Resp failure Bilateral LE cellulitis. Hypertension Hyperlipedemia. Obesity CHF. Diastolic dysfunction. 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 IV antibiotic. Increase activity. Continue oxygen nebulizer treatment. Monitor the blood pressure and vital signs. Continue Antihypertensive medication as ordered. General nursing care. Follow lab. Follow retirement sales consultant recommendations. DC planning to home. Care plan reviewed with RN and patient. Nutritional Asmnt/Malnutr-PDOC - Dietary Evaluation Malnutrition Findings (Please click <Entered> for more info): Nutritional Asmnt/Malnutrition Start: 11/19/16 14: 33 Text: Status: Complete Freq: Document 11/19/16 14:33 GSUN (Rec: 11/19/16 14:49 [email or web address] [email or web address]) Nutritional Asmnt/Malnutrition Patient General Information Nutritional Screening High Risk Screening Diagnosis Hyperthermia, acute resp failure, bilateral LE cellulitis, HTN Pertinent Medical Hx/Surgical Hx HTN, hyperlipidemia Subjective Information 61 [address] visited pt twice yesterday 11/18/2016, and once today before noon, pt was asleep and on bipap all attempts. Pt was ordered low sodium diet dinner yesterday, ate 100%. Spoke to RN Eleanor today, pt ate 100% breakfast, good appettie, no difficulties chewing/swallowing. Current Diet Order/ Nutrition Support Low sodium Pertinent Medications D5-0.45ns, Vancomycin Pertinent Labs 11/17: triglycerides 262H, cholesterol 252H Nutritional Hx/Data Height 1.85 m Height (Calculated Centimeters) 185.4 Current Weight (lbs) 152.226 kg Weight (Calculated Kilograms) 152.2 Weight (Calculated Grams) 374138.6 [place] Body Weight 184 Weight Status Morbidly Obese GI Symptoms Skin Integrity/Comment: Lewis 13. Bilateral lower extremity non-pitting 2+ Current %PO Good (75-100%) Estimated Nutritional Goals BEE in Kcals: Adj wt of IBW Calories/Kcals/Kg AdjBw 222.5lb/101.1kg Kcals Calculated 2528-3033kcal (25-30kcal/kg) Protein: Adj wt of IBW Protein Calculated 101g (1g/kg) Fluid: ml 2528-3033ml (1ml/kcal) Nutritional Problem 1. Problem Problem Malnutrition related to Etiology energy inbalance, possibly excessive PO intake aeb Signs/Symptoms: BMI >40 Malnutrition Related to Morbid Obesity Malnutrition related to morbid obesity BMI> or equal to 40 Query Text:(Any 1 Criteria met) Intervention/Recommendation Comments 1. Continue with current diet order. 2. Current diet order providing to meet 90% of lower end of kcal needs. Weight trend towards IBW preferred as retirement goal. If pt does not feel satiety, pt may have double portions low fat low sodium entrees or sides. Expected Outcomes/Goals Expected Outcomes/Goals 1. PO intake to meet at least 75% of estimated nutritional needs.
--- NOTE | 2016-11-23 | Infectious Disease Prog Note ---
Infectious Disease Subjective - Review of Systems Service Date: 11/22/16 Subjective: there is no new change, feels better. Infectious Disease Objective - Results Result Diagrams: 11/24/16 05:15 11/24/16 05:40 Recent Labs: Laboratory Last Values WBC 11.1 Th/cmm (4.8-10.8) H D 11/21/16 04:36 RBC 4.41 Mil/cmm (4.30-5.70) 11/21/16 04:36 Hgb 13.6 gm/dL (13.2-17.3) 11/21/16 04:36 Hct 40.9 % (39.0-49.0) 11/21/16 04:36 MCV 92.7 fl (80-99) 11/21/16 04:36 MCH 30.7 pg (26.0-30.0) H 11/21/16 04:36 MCHC Differential 33.1 pg (28.0-36.0) 11/21/16 04:36 RDW 13.4 % (11.5-20.0) 11/21/16 04:36 Plt Count 211 Th/cmm (150-400) 11/21/16 04:36 MPV 8.0 fl 11/21/16 04:36 Neutrophils % 80.3 % (40.0-80.0) H 11/21/16 04:36 Lymphocytes % 9.3 % (20.0-50.0) L 11/21/16 04:36 Monocytes % 8.8 % (2.0-10.0) 11/21/16 04:36 Eosinophils % 1.0 % (0.0-5.0) 11/21/16 04:36 Basophils % 0.6 % (0.0-2.0) 11/21/16 04:36 Neutrophils (Manual) 67 % (40-80) 11/18/16 06:15 Lymphocytes 22 % (20-50) 11/18/16 06:15 Monocytes 11 % (2-10) H 11/18/16 06:15 Platelet Estimate ADEQUATE (NORMAL) 11/18/16 06:15 Platelet Morphology NORMAL (NORMAL) 11/18/16 06:15 RBC Morph Micro Appear NORMAL (NORMAL) 11/18/16 06:15 PT 11.0 SECONDS (9.5-11.5) 11/17/16 18:30 INR 1.06 (0.5-1.4) 11/17/16 18:30 PTT (Actin FS) 21.6 SECONDS (26.0-38.0) L 11/17/16 18:30 D-Dimer 2480 ng/mL (100-400) H 11/17/16 21:08 Specimen Source Arterial 11/22/16 09:49 Sample Site Right Radial 11/22/16 09:49 pH 7.43 (7.35-7.45) 11/22/16 09:49 pCO2 51.0 mmHg (35.0-45.0) H 11/22/16 09:49 pO2 52.0 mmHg (80.0-100.0) L 11/22/16 09:49 HCO3 31.1 mEq/L (20.0-26.0) H 11/22/16 09:49 Base Excess 8.2 mEq/L (-3.0-3.0) H 11/22/16 09:49 O2 Saturation 87.0 % (92.0-100.0) L 11/22/16 09:49 Travis Test Positive 11/22/16 09:49 Vent Rate NA 11/22/16 09:49 Inspired O2 21 11/22/16 09:49 Tidal Volume NA 11/22/16 09:49 PEEP NA 11/22/16 09:49 Pressure (ins/psv/peep) NA 11/22/16 09:49 Critical Value LZHANG 11/22/16 09:49 Sodium 133 mEq/L (136-145) L 11/21/16 04:36 Potassium 3.9 mEq/L (3.5-5.1) 11/21/16 04:36 Chloride 100 mEq/L (98-107) 11/21/16 04:36 Carbon Dioxide 30.4 mEq/L (21.0-31.0) 11/21/16 04:36 Anion Gap 6.5 (7.0-16.0) L 11/21/16 04:36 BUN 14 mg/dL (7-25) 11/21/16 04:36 Creatinine 1.4 mg/dL (0.7-1.3) H 11/21/16 04:36 Est GFR ( Amer) > 60.0 ml/min (>90) 11/21/16 04:36 Est GFR (Non-Af Amer) 54.9 ml/min 11/21/16 04:36 BUN/Creatinine Ratio 10.0 11/21/16 04:36 Glucose 128 mg/dL (70-105) H 11/21/16 04:36 Hemoglobin A1c % 5.7 % (4.0-6.0) 11/17/16 18:30 Whole Bld Lactic Acid 2.11 mmol/L (0.60-1.99) H* 11/17/16 21:04 Calcium 8.2 mg/dL (8.6-10.3) L 11/21/16 04:36 Magnesium 2.2 mg/dL (1.9-2.7) 11/18/16 06:15 Total Bilirubin 0.9 mg/dL (0.3-1.0) 11/21/16 04:36 AST 60 U/L (13-39) H 11/21/16 04:36 ALT 90 U/L (7-52) H 11/21/16 04:36 Alkaline Phosphatase 63 U/L (34-104) 11/21/16 04:36 Ammonia 60 umol/L (16-53) H 11/19/16 04:50 Creatine Kinase 934 U/L (30-223) H 11/18/16 14:11 CK-MB (CK-2) 4.7 ng/mL (0.6-6.3) 11/18/16 14:11 Troponin I 0.06 ng/mL (0.01-0.05) H D 11/18/16 22:39 B-Natriuretic Peptide 21.1 pg/mL (5.0-100.0) 11/18/16 06:15 Total Protein 6.5 gm/dL (6.0-8.3) 11/21/16 04:36 Albumin 3.3 gm/dL (4.2-5.5) L 11/21/16 04:36 Globulin 3.2 gm/dL 11/21/16 04:36 Albumin/Globulin Ratio 1.0 (1.0-1.8) 11/21/16 04:36 Triglycerides 262 mg/dL (<150) H 11/17/16 18:30 Cholesterol 252 mg/dL (<200) H 11/17/16 18:30 LDL Cholesterol Direct 170 mg/dL (75-193) 11/17/16 18:30 HDL Cholesterol 52 mg/dL (23-92) 11/17/16 18:30 TSH 2.02 uIU/ml (0.34-5.60) 11/17/16 18:30 Urine Source CLEAN C 11/18/16 07:30 Urine Color YELLOW 11/18/16 07:30 Urine Clarity SLIGHT HAZY (CLEAR) 11/18/16 07:30 Urine pH 5.5 11/18/16 07:30 Ur Specific [place] 1.015 (1.005-1.030) 11/18/16 07:30 Urine Protein TRACE mg/dL (NEGATIVE) 11/18/16 07:30 Urine Glucose (UA) NEGATIVE mg/dL (NEGATIVE) 11/18/16 07:30 Urine Ketones NEGATIVE mg/dL (NEGATIVE) 11/18/16 07:30 Urine Blood MODERATE (NEGATIVE) H 11/18/16 07:30 Urine Nitrate NEGATIVE (NEGATIVE) 11/18/16 07:30 Urine Bilirubin NEGATIVE (NEGATIVE) 11/18/16 07:30 Urine Urobilinogen 0.2 E.U./dL (0.2 - 1.0) 11/18/16 07:30 Ur Leukocyte Esterase NEGATIVE (NEGATIVE) 11/18/16 07:30 Urine RBC 2-5 /hpf (0-5) H 11/18/16 07:30 Urine WBC 0-2 /hpf (0-5) 11/18/16 07:30 Ur Epithelial Cells FEW /lpf (FEW) 11/18/16 07:30 Urine Bacteria NONE SEEN /hpf (NONE SEEN) 11/18/16 07:30 Vancomycin Peak 7.8 ug/mL (30.0-40.0) L 11/20/16 19:00 Vancomycin Trough 11.3 ug/mL (10-20) 11/21/16 19:31 Urine Opiates Screen NEGATIVE (NEGATIVE) 11/18/16 07:30 Urine Methadone Screen NEGATIVE (NEGATIVE) 11/18/16 07:30 Ur Barbiturates Screen NEGATIVE (NEGATIVE) 11/18/16 07:30 Ur Tricyclics Screen NEGATIVE (NEGATIVE) 11/18/16 07:30 Ur Phencyclidine Scrn NEGATIVE (NEGATIVE) 11/18/16 07:30 Amphetamines Screen POSITIVE (NEGATIVE) H 11/18/16 07:30 U Methamphetamines Scrn POSITIVE (NEGATIVE) H 11/18/16 07:30 U Benzodiazepines Scrn NEGATIVE (NEGATIVE) 11/18/16 07:30 U Cocaine Metab Screen NEGATIVE (NEGATIVE) 11/18/16 07:30 U Cannabinoids Screen NEGATIVE (NEGATIVE) 11/18/16 07:30 Ethyl Alcohol < 10 mg/dL (0-10) 11/17/16 18:30 RPR NONREACTIVE (NONREACTIVE) 11/17/16 18:30 - Physical Exam Vitals and I&O: Vital Signs Temp 98.5 F 11/22/16 20:00 Pulse 72 11/22/16 20:00 Resp 18 11/22/16 20:00 BP 138/93 11/22/16 20:00 Pulse Ox 94 11/22/16 20:00 Intake & Output 11/22/16 11/22/16 11/23/16 06:59 18:59 06:59 Intake Total 400 3500 Output Total 790 1500 Balance -390 2000 Weight (lbs) 159.665 kg 159.665 kg Intake: Intake, IV Amount 100 300 Piperacillin Sodium/ 100 50 Tazobact 3.375 gm In Sodium Chloride 0.9% 50 ml @ 100 mls/hr IV Q6HR [facility] Rx#:[id number] Vancomycin HCl 1.5 gm In 250 Sodium Chloride 0.9% 250 ml @ 166.667 mls/hr IV Q12HR@0800,2000 [facility] Rx#: [id number] Oral 300 3200 Output: Urine 790 1500 Other: # Voids 5 # Bowel Movements 0 0 Active Medications: Current Medications Acetaminophen (Tylenol) 650 mg PO Q6H PRN PRN Reason: Mild Pain/Headache/T above 101 Stop: 01/16/17 21:18 Last Admin: 11/18/16 00:05 Dose: 650 mg Albuterol/Ipratropium (Duoneb Neb) 3 ml HHN [id number] [facility] Stop: 01/17/17 14:59 Last Admin: 11/22/16 18:57 Dose: 3 ml Budesonide (Pulmicort) 0.5 mg HHN BIDRT [facility] Stop: 01/17/17 18:59 Last Admin: 11/22/16 18:57 Dose: 0.5 mg Clonidine HCl (Catapres) 0.1 mg PO Q4HR PRN PRN Reason: For systolic over 150 Stop: 01/21/17 02:03 Last Admin: 11/22/16 02:16 Dose: 0.1 mg Enoxaparin Sodium (Lovenox) 30 mg SUBQ DAILY [facility] Stop: 01/17/17 08:59 Last Admin: 11/22/16 09:51 Dose: Not Given Dextrose/Sodium Chloride (D5-0.45ns) 1,000 mls @ 100 mls/hr IV .Q10H [facility] Stop: 01/16/17 21:29 Last Admin: 11/19/16 17:01 Dose: 100 mls/hr Piperacillin Sod/Tazobactam (Sod 3.375 gm/ Sodium Chloride) 50 mls @ 100 mls/ hr IV Q6HR [facility] Stop: 01/16/17 21:59 Last Admin: 11/22/16 17:26 Dose: 100 mls/hr Vancomycin HCl 1.5 gm/ Sodium (Chloride) 250 mls @ 166.667 mls/hr IV Q12HR@0800 ,2000 [facility] Stop: 01/21/17 07:23 Last Admin: 11/22/16 21:15 Dose: 166.667 mls/hr Lactobacillus Rhamnosus (Culturelle) 1 each PO DAILY [facility] Stop: 01/20/17 08:59 Last Admin: 11/22/16 09:51 Dose: Not Given Lorazepam (Ativan) 1 mg IVP Q4H PRN; Protocol PRN Reason: Anxiety/Agitation Stop: 01/16/17 21:18 Last Admin: 11/22/16 00:45 Dose: 1 mg Losartan Potassium (Cozaar) 100 mg PO DAILY [facility] Stop: 01/21/17 08:59 Last Admin: 11/22/16 09:51 Dose: Not Given Miscellaneous (Vancomycin Iv Per Pharmacy) 1 ea PRN PRN PRN Reason: PROTOCOL Stop: 01/17/17 17:43 Miscellaneous (Vte Chemical Prophylaxis Screen/ Admission) 1 ea PRN PRN PRN Reason: PROTOCOL Stop: 01/19/17 09:31 Miscellaneous (Probiotic Screen) 1 ea PRN PRN PRN Reason: PROTOCOL Stop: 01/19/17 09:35 Ondansetron HCl (Zofran) 4 mg IVP Q6H PRN PRN Reason: Nausea / Vomiting Stop: 01/16/17 21:18 General: no acute distress, well developed, well nourished, other (obese) HEENT: atraumatic, normocephalic, PERRLA, EOMI, moist mucous membrane Neck: supple, no thyromegaly, no lymphadenopathy, no rigid Cardiovascular: S1S2, regular Lungs: clear to auscultation bilaterally, clear to percussion Abdomen: soft, bowel sounds, no tender, no distended, no hepatomegaly, no splenomegaly Extremities: other (redness of the lower legs.), no cyanosis, no clubbing, no edema Neurological: awake, alert, oriented Skin: intact Infectious Disease Assmt/Plan - Problem List Patient Problems: All Active Problems ALTERED MENTAL STATUS (Acute) - Assessment Assessment: 1. CN staph sepsis. 2. cardiomyopathy. 3. Cellulitis of bith legs. 4. EVANS. 5. COPD. 6. HTN. 7. CHF. 8. Obesity. 9. LETICIA. 10. UTI. Plan: Dc vanco IV in view of renal failure. Repeat blood c/s. negative. DC plan when creatinine stabilizes. May change zosyn to levaquin. check trough level of vanco tomorrow and day after tomorrow. When the creatinine improves and vanco comes to be < 10 may start zyvox po/iv to complete 2 weeks therapy ( End date - 12/02/2016). Nutritional Asmnt/Malnutr-PDOC - Dietary Evaluation Malnutrition Findings (Please click <Entered> for more info): Nutritional Asmnt/Malnutrition Start: 11/19/16 14: 33 Text: Status: Complete Freq: Document 11/19/16 14:33 GSUN (Rec: 11/19/16 14:49 [id number]) Nutritional Asmnt/Malnutrition Patient General Information Nutritional Screening High Risk Screening Diagnosis Hyperthermia, acute resp failure, bilateral LE cellulitis, HTN Pertinent Medical Hx/Surgical Hx HTN, hyperlipidemia Subjective Information 61 [address] visited pt twice yesterday 11/18/2016, and once today before noon, pt was asleep and on bipap all attempts. Pt was ordered low sodium diet dinner yesterday, ate 100%. Spoke to CHRISTY Webster today, pt ate 100% breakfast, good appettie, no difficulties chewing/swallowing. Current Diet Order/ Nutrition Support Low sodium Pertinent Medications D5-0.45ns, Vancomycin Pertinent Labs 11/17: triglycerides 262H, cholesterol 252H Nutritional Hx/Data Height 1.85 m Height (Calculated Centimeters) 185.4 Current Weight (lbs) 152.226 kg Weight (Calculated Kilograms) 152.2 Weight (Calculated Grams) 848086.6 [place] Body Weight 184 Weight Status Morbidly Obese GI Symptoms Skin Integrity/Comment: [place] 13. Bilateral lower extremity non-pitting 2+ Current %PO Good (75-100%) Estimated Nutritional Goals BEE in Kcals: Adj wt of IBW Calories/Kcals/Kg AdjBw 222.5lb/101.1kg Kcals Calculated 2528-3033kcal (25-30kcal/kg) Protein: Adj wt of IBW Protein Calculated 101g (1g/kg) Fluid: ml 2528-3033ml (1ml/kcal) Nutritional Problem 1. Problem Problem Malnutrition related to Etiology energy inbalance, possibly excessive PO intake aeb Signs/Symptoms: BMI >40 Malnutrition Related to Morbid Obesity Malnutrition related to morbid obesity BMI> or equal to 40 Query Text:(Any 1 Criteria met) Intervention/Recommendation Comments 1. Continue with current diet order. 2. Current diet order providing to meet 90% of lower end of kcal needs. Weight trend towards IBW preferred as senior living goal. If pt does not feel satiety, pt may have double portions low fat low sodium entrees or sides. Expected Outcomes/Goals Expected Outcomes/Goals 1. PO intake to meet at least 75% of estimated nutritional needs.
[2016-11-23] MEDS: Albuterol/Ipratropium Neb 3 ML AERS HHN SCH ×4 (07:58→19:16)
[2016-11-23] MEDS: Budesonide 0.5 Mg/2 mL Ud HHN SCH ×2 (07:58→19:16)
[2016-11-23] MEDS: Enoxaparin 30 mg/0.3 mL 0.3mL Syr SUBQ SCH (08:18)
[2016-11-23] MEDS: Lactobacillus Rhamnosus 10 Billion CFU Capsule PO SCH (08:19)
[2016-11-23 08:20] LABS: % BASOPHILS 0.1 % (0.0-2.0); % EOSINOPHILS 1.3 % (0.0-5.0); % LYMPHOCYTES 9.9 % (20.0-50.0); % MONOCYTES 8.2 % (2.0-10.0); % NEUTROPHILS 80.5 % (40.0-80.0); HEMATOCRIT 40.1 % (39.0-49.0); HEMOGLOBIN 13.6 gm/dL (13.2-17.3); MEAN CELL VOLUME 92.5 fl (80-99); MEAN CORPUSCULAR HEMOGLOBIN 31.5 pg (26.0-30.0); MEAN PLATELET VOLUME 7.2 fl; NEUTROPHILE ABSOLUTE 8.7 Th/cmm (1.8-8.0); PLATELET COUNT 252 Th/cmm (150-400); RED BLOOD COUNT 4.33 Mil/cmm (4.30-5.70); RED CELL DISTRIBUTION WIDTH 13.7 % (11.5-20.0); WHITE BLOOD COUNT 10.8 Th/cmm (4.8-10.8)
[2016-11-23 08:38] LABS: ANION GAP 4.1 (7.0-16.0); BILIRUBIN,TOTAL 0.9 mg/dL (0.3-1.0); BUN/CREATININE RATIO 11.6; CALCIUM SERUM 8.6 mg/dL (8.6-10.3); CARBON DIOXIDE 30.3 mEq/L (21.0-31.0); CREATININE - SERUM 3.1 mg/dL (0.7-1.3); POTASSIUM SERUM 3.4 mEq/L (3.5-5.1)
[2016-11-23 09:35] LABS: BE(B) 5.3 mEq/L (-3.0-3.0); HCO3 28.9 mEq/L (20.0-26.0); pH 7.45 (7.35-7.45)
[2016-11-23 09:36] LABS: ABG SOURCE Arterial; ALLEN TEST Positive; FIO2 21
--- NOTE | 2016-11-23 10:14 | Diagnostic Imaging Report ---
Portable chest x-ray HISTORY: Shortness of breath Compared to prior exam of November 20, 2016, the heart remains enlarged. There remains widening of the mediastinum corresponds to extensive mediastinal fat noted on an earlier CT scan of the chest of November 17, 2016. No other focal pulmonary parenchymal processes seen at this time. IMPRESSION: 1. No significant change in the cardiopulmonary status.
[2016-11-23 11:16] LABS: URINE COLOR YELLOW
[2016-11-23 11:17] LABS: URINE BILIRUBIN NEGATIVE (NEGATIVE); URINE BLOOD LARGE (NEGATIVE); URINE GLUCOSE (UA) NEGATIVE (NEGATIVE); URINE KETONE NEGATIVE (NEGATIVE); URINE PH 5.5; URINE PROTEIN 100 mg/dL (NEGATIVE); URINE UROBILINOGEN 0.2 E.U./dL (0.2 - 1.0)
[2016-11-23 11:24] LABS: URINE BACTERIA FEW /hpf (NONE SEEN); URINE EPITHELIAL CELLS FEW /lpf (FEW); URINE RBC 25-50 /hpf (0-5)
[2016-11-23] MEDS: D5-0.9%NS 1,000 ML IV SCH (14:17)
[2016-11-23 14:28] LABS: CREATINE KINASE MB 4.1 ng/mL (0.6-6.3)
[2016-11-23 14:51] LABS: URINE BILIRUBIN NEGATIVE (NEGATIVE); URINE BLOOD LARGE (NEGATIVE); URINE COLOR YELLOW; URINE GLUCOSE (UA) NEGATIVE (NEGATIVE); URINE KETONE NEGATIVE (NEGATIVE); URINE PROTEIN 100 mg/dL (NEGATIVE); URINE RBC 25-50 /hpf (0-5); URINE UROBILINOGEN 0.2 E.U./dL (0.2 - 1.0)
[2016-11-23 14:52] LABS: URINE AMORPHOUS SEDIMENT MODERATE URATES (NONE SEEN); URINE BACTERIA 1+ /hpf (NONE SEEN); URINE EPITHELIAL CELLS FEW /lpf (FEW)
[2016-11-23] MEDS ORDERED: Piperacillin/Tazobact 2.25 gm in 0.9% NS 50 ML IV SCH (18:00)
[2016-11-23] MEDS ORDERED: Levofloxacin 250mg/50mL 250 MG/50 ML BAG IV ONE (22:52)
[2016-11-23] MEDS: Levofloxacin 250mg/50mL 250 MG/50 ML BAG IV SCH (22:55)
[2016-11-24] MEDS: D5-0.9%NS 1,000 ML IV SCH (00:59)
[2016-11-24 05:35] LABS: % BASOPHILS 0.2 % (0.0-2.0); % EOSINOPHILS 3.4 % (0.0-5.0); % LYMPHOCYTES 9.3 % (20.0-50.0); % MONOCYTES 9.6 % (2.0-10.0); % NEUTROPHILS 77.5 % (40.0-80.0); HEMATOCRIT 40.1 % (39.0-49.0); HEMOGLOBIN 13.3 gm/dL (13.2-17.3); MEAN CORPUSCULAR HEMOGLOBIN 31.1 pg (26.0-30.0); MEAN CORPUSCULAR HGB CONC 33.1 pg (28.0-36.0); MEAN PLATELET VOLUME 7.8 fl; NEUTROPHILE ABSOLUTE 7.9 Th/cmm (1.8-8.0); PLATELET COUNT 295 Th/cmm (150-400); RED BLOOD COUNT 4.27 Mil/cmm (4.30-5.70); RED CELL DISTRIBUTION WIDTH 13.5 % (11.5-20.0); WHITE BLOOD COUNT 10.3 Th/cmm (4.8-10.8)
[2016-11-24 06:17] LABS: ANION GAP 8.9 (7.0-16.0); BILIRUBIN,TOTAL 0.7 mg/dL (0.3-1.0); BUN/CREATININE RATIO 12.3; CALCIUM SERUM 8.3 mg/dL (8.6-10.3); CARBON DIOXIDE 28.2 mEq/L (21.0-31.0); CREATININE - SERUM 3.5 mg/dL (0.7-1.3); POTASSIUM SERUM 4.1 mEq/L (3.5-5.1); URIC ACID 6.8 mg/dL (4.4-7.6)
[2016-11-24 06:19] LABS: VANCOMYCIN TROUGH 16.1 ug/mL (10-20)
[2016-11-24] MEDS: Albuterol/Ipratropium Neb 3 ML AERS HHN SCH ×4 (07:35→18:37)
[2016-11-24] MEDS: Budesonide 0.5 Mg/2 mL Ud HHN SCH ×2 (07:42→18:36)
[2016-11-24] MEDS: Lactobacillus Rhamnosus 10 Billion CFU Capsule PO SCH (09:21)
[2016-11-24] MEDS: Enoxaparin 30 mg/0.3 mL 0.3mL Syr SUBQ SCH (09:22)
--- NOTE | 2016-11-24 09:47 | General Progress Note ---
Subjective - Review of Systems Subjective: Patient is seen and examined. Patient's denies any chest pain, shortness of breath, palpitation, dizziness, headache, fever, chills. Objective - Results Result Diagrams: 11/24/16 05:15 11/24/16 05:40 Recent Labs: Laboratory Last Values WBC 10.3 Th/cmm (4.8-10.8) 11/24/16 05:15 RBC 4.27 Mil/cmm (4.30-5.70) L 11/24/16 05:15 Hgb 13.3 gm/dL (13.2-17.3) 11/24/16 05:15 Hct 40.1 % (39.0-49.0) 11/24/16 05:15 MCV 94.0 fl (80-99) 11/24/16 05:15 MCH 31.1 pg (26.0-30.0) H 11/24/16 05:15 MCHC Differential 33.1 pg (28.0-36.0) 11/24/16 05:15 RDW 13.5 % (11.5-20.0) 11/24/16 05:15 Plt Count 295 Th/cmm (150-400) 11/24/16 05:15 MPV 7.8 fl 11/24/16 05:15 Neutrophils % 77.5 % (40.0-80.0) 11/24/16 05:15 Lymphocytes % 9.3 % (20.0-50.0) L 11/24/16 05:15 Monocytes % 9.6 % (2.0-10.0) 11/24/16 05:15 Eosinophils % 3.4 % (0.0-5.0) 11/24/16 05:15 Basophils % 0.2 % (0.0-2.0) 11/24/16 05:15 Neutrophils (Manual) 67 % (40-80) 11/18/16 06:15 Lymphocytes 22 % (20-50) 11/18/16 06:15 Monocytes 11 % (2-10) H 11/18/16 06:15 Platelet Estimate ADEQUATE (NORMAL) 11/18/16 06:15 Platelet Morphology NORMAL (NORMAL) 11/18/16 06:15 RBC Morph Micro Appear NORMAL (NORMAL) 11/18/16 06:15 Eos Smear Source URINE 11/24/16 06:50 Eos Smear Total Cells NONE SEEN (NONE SEEN) 11/24/16 06:50 PT 11.0 SECONDS (9.5-11.5) 11/17/16 18:30 INR 1.06 (0.5-1.4) 11/17/16 18:30 PTT (Actin FS) 21.6 SECONDS (26.0-38.0) L 11/17/16 18:30 D-Dimer 2480 ng/mL (100-400) H 11/17/16 21:08 Specimen Source Arterial 11/23/16 09:26 Sample Site Right Radial 11/23/16 09:26 pH 7.45 (7.35-7.45) 11/23/16 09:26 pCO2 43.0 mmHg (35.0-45.0) 11/23/16 09:26 pO2 58.0 mmHg (80.0-100.0) L 11/23/16 09:26 HCO3 28.9 mEq/L (20.0-26.0) H 11/23/16 09:26 Base Excess 5.3 mEq/L (-3.0-3.0) H 11/23/16 09:26 O2 Saturation 91.0 % (92.0-100.0) L 11/23/16 09:26 Travis Test Positive 11/23/16 09:26 Vent Rate NA 11/23/16 09:26 Inspired O2 21 11/23/16 09:26 Tidal Volume NA 11/23/16 09:26 PEEP NA 11/23/16 09:26 Pressure (ins/psv/peep) NA 11/23/16 09:26 Critical Value LZHANG 11/23/16 09:26 Sodium 137 mEq/L (136-145) D 11/24/16 05:40 Potassium 4.1 mEq/L (3.5-5.1) 11/24/16 05:40 Chloride 104 mEq/L (98-107) 11/24/16 05:40 Carbon Dioxide 28.2 mEq/L (21.0-31.0) 11/24/16 05:40 Anion Gap 8.9 (7.0-16.0) 11/24/16 05:40 BUN 43 mg/dL (7-25) H 11/24/16 05:40 Creatinine 3.5 mg/dL (0.7-1.3) H 11/24/16 05:40 Est GFR ( Amer) 23.1 ml/min (>90) 11/24/16 05:40 Est GFR (Non-Af Amer) 19.1 ml/min 11/24/16 05:40 BUN/Creatinine Ratio 12.3 11/24/16 05:40 Glucose 109 mg/dL (70-105) H 11/24/16 05:40 Hemoglobin A1c % 5.7 % (4.0-6.0) 11/17/16 18:30 Whole Bld Lactic Acid 2.11 mmol/L (0.60-1.99) H* 11/17/16 21:04 Uric Acid 6.8 mg/dL (4.4-7.6) 11/24/16 05:40 Calcium 8.3 mg/dL (8.6-10.3) L 11/24/16 05:40 Magnesium 2.2 mg/dL (1.9-2.7) 11/18/16 06:15 Total Bilirubin 0.7 mg/dL (0.3-1.0) 11/24/16 05:40 AST 60 U/L (13-39) H 11/24/16 05:40 ALT 129 U/L (7-52) H 11/24/16 05:40 Alkaline Phosphatase 71 U/L (34-104) 11/24/16 05:40 Ammonia 60 umol/L (16-53) H 11/19/16 04:50 Creatine Kinase 287 U/L (30-223) H 11/23/16 13:37 CK-MB (CK-2) 4.1 ng/mL (0.6-6.3) 11/23/16 13:37 Troponin I 0.06 ng/mL (0.01-0.05) H D 11/18/16 22:39 B-Natriuretic Peptide 21.1 pg/mL (5.0-100.0) 11/18/16 06:15 Total Protein 6.7 gm/dL (6.0-8.3) 11/24/16 05:40 Albumin 3.3 gm/dL (4.2-5.5) L 11/24/16 05:40 Globulin 3.4 gm/dL 11/24/16 05:40 Albumin/Globulin Ratio 1.0 (1.0-1.8) 11/24/16 05:40 Triglycerides 262 mg/dL (<150) H 11/17/16 18:30 Cholesterol 252 mg/dL (<200) H 11/17/16 18:30 LDL Cholesterol Direct 170 mg/dL (75-193) 11/17/16 18:30 HDL Cholesterol 52 mg/dL (23-92) 11/17/16 18:30 TSH 5.23 uIU/ml (0.34-5.60) 11/24/16 05:15 Urine Source RANDOM 11/23/16 13:50 Urine Color YELLOW 11/23/16 13:50 Urine Clarity SLIGHT HAZY (CLEAR) 11/23/16 13:50 Urine pH 5.0 11/23/16 13:50 Ur Specific [place] 1.010 (1.005-1.030) 11/23/16 13:50 Urine Protein 100 mg/dL (NEGATIVE) H 11/23/16 13:50 Urine Glucose (UA) NEGATIVE mg/dL (NEGATIVE) 11/23/16 13:50 Urine Ketones NEGATIVE mg/dL (NEGATIVE) 11/23/16 13:50 Urine Blood LARGE (NEGATIVE) H 11/23/16 13:50 Urine Nitrate NEGATIVE (NEGATIVE) 11/23/16 13:50 Urine Bilirubin NEGATIVE (NEGATIVE) 11/23/16 13:50 Urine Urobilinogen 0.2 E.U./dL (0.2 - 1.0) 11/23/16 13:50 Ur Leukocyte Esterase NEGATIVE (NEGATIVE) 11/23/16 13:50 Urine RBC 25-50 /hpf (0-5) H 11/23/16 13:50 Urine WBC 2-5 /hpf (0-5) H 11/23/16 13:50 Ur Epithelial Cells FEW /lpf (FEW) 11/23/16 13:50 Amorphous Sediment MODERATE URATES (NONE SEEN) 11/23/16 13:50 Urine Bacteria 1+ /hpf (NONE SEEN) H 11/23/16 13:50 Ur Random Sodium 44 mmol/L 11/23/16 13:50 Urine Creatinine 54.0 mg/dl (39.0-259.0) 11/23/16 13:50 Vancomycin Peak 7.8 ug/mL (30.0-40.0) L 11/20/16 19:00 Vancomycin Trough 16.1 ug/mL (10-20) 11/24/16 05:40 Urine Opiates Screen NEGATIVE (NEGATIVE) 11/18/16 07:30 Urine Methadone Screen NEGATIVE (NEGATIVE) 11/18/16 07:30 Ur Barbiturates Screen NEGATIVE (NEGATIVE) 11/18/16 07:30 Ur Tricyclics Screen NEGATIVE (NEGATIVE) 11/18/16 07:30 Ur Phencyclidine Scrn NEGATIVE (NEGATIVE) 11/18/16 07:30 Amphetamines Screen POSITIVE (NEGATIVE) H 11/18/16 07:30 U Methamphetamines Scrn POSITIVE (NEGATIVE) H 11/18/16 07:30 U Benzodiazepines Scrn NEGATIVE (NEGATIVE) 11/18/16 07:30 U Cocaine Metab Screen NEGATIVE (NEGATIVE) 11/18/16 07:30 U Cannabinoids Screen NEGATIVE (NEGATIVE) 11/18/16 07:30 Ethyl Alcohol < 10 mg/dL (0-10) 11/17/16 18:30 RPR NONREACTIVE (NONREACTIVE) 11/17/16 18:30 - Physical Exam Vitals and I&O: Vital Signs Temp 98.5 F 11/24/16 08:10 Pulse 77 11/24/16 09:21 Resp 20 11/24/16 08:10 BP 152/100 11/24/16 09:21 Pulse Ox 94 11/24/16 08:10 Intake & Output 11/23/16 11/24/16 11/24/16 18:59 06:59 18:59 Intake Total 2080 620 Output Total 800 2700 Balance 1280 -2080 Weight (lbs) 160.118 kg 160.118 kg Intake: Intake, IV Amount 480 620 D5-0.9%Ns 1,000 ml @ 100 430 570 mls/hr IV .Q10H [facility] Rx#: [id number] Levofloxacin 250mg/50mL 50 250 mg In 50 ml @ 50 mls/ hr IV Q24HR [facility] Rx#: [id number] Piperacillin Sodium/ 50 Tazobact 2.25 gm In Sodium Chloride 0.9% 50 ml @ 100 mls/hr IV Q6HR [facility] Rx#:[id number] Oral 1600 Output: Urine 800 2700 Other: # Bowel Movements 2 1 Active Medications: Current Medications Acetaminophen (Tylenol) 650 mg PO Q6H PRN PRN Reason: Mild Pain/Headache/T above 101 Stop: 01/16/17 21:18 Last Admin: 11/18/16 00:05 Dose: 650 mg Albuterol/Ipratropium (Duoneb Neb) 3 ml HHN [id number] [facility] Stop: 01/17/17 14:59 Last Admin: 11/24/16 07:35 Dose: 3 ml Budesonide (Pulmicort) 0.5 mg HHN BIDRT [facility] Stop: 01/17/17 18:59 Last Admin: 11/24/16 07:42 Dose: 0.5 mg Clonidine HCl (Catapres) 0.1 mg PO Q4HR PRN PRN Reason: For systolic over 150 Stop: 01/21/17 02:03 Last Admin: 11/24/16 09:21 Dose: 0.1 mg Enoxaparin Sodium (Lovenox) 30 mg SUBQ DAILY [facility] Stop: 01/17/17 08:59 Last Admin: 11/24/16 09:22 Dose: Not Given Hydrocortisone (Hydrocortisone 1% Cream) 1 gm TP BID [facility] Stop: 01/22/17 16:59 Dextrose/Sodium Chloride (D5-0.9%Ns) 1,000 mls @ 100 mls/hr IV .Q10H [facility] Stop: 01/22/17 13:45 Last Admin: 11/24/16 00:59 Dose: 100 mls/hr Levofloxacin (Levaquin Pb) 250 mg in 50 mls @ 50 mls/hr IV Q24HR [facility] Stop: 01/22/17 21:14 Last Infusion: 11/23/16 23:55 Dose: Infused Lactobacillus Rhamnosus (Culturelle) 1 each PO DAILY [facility] Stop: 01/20/17 08:59 Last Admin: 11/24/16 09:21 Dose: 1 each Lorazepam (Ativan) 1 mg IVP Q4H PRN; Protocol PRN Reason: Anxiety/Agitation Stop: 01/16/17 21:18 Last Admin: 11/22/16 00:45 Dose: 1 mg Losartan Potassium (Cozaar) 100 mg PO DAILY [facility] Stop: 01/21/17 08:59 Last Admin: 11/24/16 09:21 Dose: 100 mg Miscellaneous (Vte Chemical Prophylaxis Screen/ Admission) 1 ea MC PRN PRN PRN Reason: PROTOCOL Stop: 01/19/17 09:31 Miscellaneous (Probiotic Screen) 1 ea MC PRN PRN PRN Reason: PROTOCOL Stop: 01/19/17 09:35 Miscellaneous (Clinical Monitoring) 1 ea MC PRN PRN PRN Reason: PROTOCOL Stop: 01/22/17 12:17 Ondansetron HCl (Zofran) 4 mg IVP Q6H PRN PRN Reason: Nausea / Vomiting Stop: 01/16/17 21:18 General: Alert, Oriented x3, No acute distress HEENT: Atraumatic, PERRLA, Mucous membr. moist/pink Neck: Supple Cardiovascular: Regular rate, Normal S1, Normal S2 Lungs: Normal air movement, Other (diffuse rhonchi.) Abdomen: Bowel sounds, Soft Extremities: Clubbing, Other (chronic venous stasis changes on both lower extremities, With some improvement of erythema.) Neurological: Normal gait, Other (decreased power on both upper and lower extremity.) Psych/Mental Status: Mood NL Assessment/Plan - Problem List Patient Problems: All Active Problems ALTERED MENTAL STATUS (Acute) - Assessment Assessment: Current Active Problems Problem Status Onset ALTERED MENTAL STATUS Acute Acute kidney injury most likely secondary to vancomycin related, cannot rule out secondary to Zosyn causing allergic interstitial nephritis. Acute Resp failure on O2 and when necessary BiPAP. Bilateral LE cellulitis. Hypertension Hyperlipedemia. Obesity CHF. Diastolic dysfunction. 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 IV antibiotic as per infectious disease.. Hold at discharge. Continue oxygen nebulizer treatment. Monitor the blood pressure and vital signs. Continue Antihypertensive medication as ordered. General nursing care. Follow lab. Follow finance consultant recommendations. Acute kidney injury workup under progress. I's and O's. Avoid anuria. Care plan reviewed with RN and patient. Nutritional Asmnt/Malnutr-PDOC - Dietary Evaluation Malnutrition Findings (Please click <Entered> for more info): Nutritional Asmnt/Malnutrition Start: 11/19/16 14: 33 Text: Status: Complete Freq: Document 11/19/16 14:33 GSUN (Rec: 11/19/16 14:49 GSUN [id number]) Nutritional Asmnt/Malnutrition Patient General Information Nutritional Screening High Risk Screening Diagnosis Hyperthermia, acute resp failure, bilateral LE cellulitis, HTN Pertinent Medical Hx/Surgical Hx HTN, hyperlipidemia Subjective Information 61 [address] visited pt twice yesterday 11/18/2016, and once today before noon, pt was asleep and on bipap all attempts. Pt was ordered low sodium diet dinner yesterday, ate 100%. Spoke to CHRISTY Webster today, pt ate 100% breakfast, good appettie, no difficulties chewing/swallowing. Current Diet Order/ Nutrition Support Low sodium Pertinent Medications D5-0.45ns, Vancomycin Pertinent Labs 11/17: triglycerides 262H, cholesterol 252H Nutritional Hx/Data Height 1.85 m Height (Calculated Centimeters) 185.4 Current Weight (lbs) 152.226 kg Weight (Calculated Kilograms) 152.2 Weight (Calculated Grams) 932514.6 [place] Body Weight 184 Weight Status Morbidly Obese GI Symptoms Skin Integrity/Comment: Lewis 13. Bilateral lower extremity non-pitting 2+ Current %PO Good (75-100%) Estimated Nutritional Goals BEE in Kcals: Adj wt of IBW Calories/Kcals/Kg AdjBw 222.5lb/101.1kg Kcals Calculated 2528-3033kcal (25-30kcal/kg) Protein: Adj wt of IBW Protein Calculated 101g (1g/kg) Fluid: ml 2528-3033ml (1ml/kcal) Nutritional Problem 1. Problem Problem Malnutrition related to Etiology energy inbalance, possibly excessive PO intake aeb Signs/Symptoms: BMI >40 Malnutrition Related to Morbid Obesity Malnutrition related to morbid obesity BMI> or equal to 40 Query Text:(Any 1 Criteria met) Intervention/Recommendation Comments 1. Continue with current diet order. 2. Current diet order providing to meet 90% of lower end of kcal needs. Weight trend towards IBW preferred as assisted goal. If pt does not feel satiety, pt may have double portions low fat low sodium entrees or sides. Expected Outcomes/Goals Expected Outcomes/Goals 1. PO intake to meet at least 75% of estimated nutritional needs.
--- NOTE | 2016-11-24 10:07 | Diagnostic Imaging Report ---
Renal ultrasound HISTORY: Abnormal renal function tests Exam is limited due to patient's size and body habitus. The right kidney is generous in size (13.9 x 7.2 x 7.5 cm). There appears to be an approximate 2.7 x 2.4 x 2.4 cm sonolucent lesion in the lower pole consistent with a cyst. Again, detail is somewhat limited. No hydronephrosis. Left kidney is increased in size (14.6 x 7.9 x 6.7 cm). An approximate 8.0 cm sonolucent lesion is seen in the upper pole consistent with a cyst. No hydronephrosis. No intraluminal abnormality seen within the urinary bladder. IMPRESSION: 1. Limited exam due to patient's size and body habitus 2. Findings consistent with bilateral renal cysts 3. Increase in size of the kidneys bilaterally. Significance should be correlated with renal function tests. No hydronephrosis.
--- NOTE | 2016-11-24 12:41 | Infectious Disease Prog Note ---
Infectious Disease Subjective - Review of Systems Service Date: 11/24/16 Subjective: there is no new change, feels better. Infectious Disease Objective - Results Result Diagrams: 11/24/16 05:15 11/24/16 05:40 Recent Labs: Laboratory Last Values WBC 10.3 Th/cmm (4.8-10.8) 11/24/16 05:15 RBC 4.27 Mil/cmm (4.30-5.70) L 11/24/16 05:15 Hgb 13.3 gm/dL (13.2-17.3) 11/24/16 05:15 Hct 40.1 % (39.0-49.0) 11/24/16 05:15 MCV 94.0 fl (80-99) 11/24/16 05:15 MCH 31.1 pg (26.0-30.0) H 11/24/16 05:15 MCHC Differential 33.1 pg (28.0-36.0) 11/24/16 05:15 RDW 13.5 % (11.5-20.0) 11/24/16 05:15 Plt Count 295 Th/cmm (150-400) 11/24/16 05:15 MPV 7.8 fl 11/24/16 05:15 Neutrophils % 77.5 % (40.0-80.0) 11/24/16 05:15 Lymphocytes % 9.3 % (20.0-50.0) L 11/24/16 05:15 Monocytes % 9.6 % (2.0-10.0) 11/24/16 05:15 Eosinophils % 3.4 % (0.0-5.0) 11/24/16 05:15 Basophils % 0.2 % (0.0-2.0) 11/24/16 05:15 Neutrophils (Manual) 67 % (40-80) 11/18/16 06:15 Lymphocytes 22 % (20-50) 11/18/16 06:15 Monocytes 11 % (2-10) H 11/18/16 06:15 Platelet Estimate ADEQUATE (NORMAL) 11/18/16 06:15 Platelet Morphology NORMAL (NORMAL) 11/18/16 06:15 RBC Morph Micro Appear NORMAL (NORMAL) 11/18/16 06:15 Eos Smear Source URINE 11/24/16 06:50 Eos Smear Total Cells NONE SEEN (NONE SEEN) 11/24/16 06:50 PT 11.0 SECONDS (9.5-11.5) 11/17/16 18:30 INR 1.06 (0.5-1.4) 11/17/16 18:30 PTT (Actin FS) 21.6 SECONDS (26.0-38.0) L 11/17/16 18:30 D-Dimer 2480 ng/mL (100-400) H 11/17/16 21:08 Specimen Source Arterial 11/23/16 09:26 Sample Site Right Radial 11/23/16 09:26 pH 7.45 (7.35-7.45) 11/23/16 09:26 pCO2 43.0 mmHg (35.0-45.0) 11/23/16 09:26 pO2 58.0 mmHg (80.0-100.0) L 11/23/16 09:26 HCO3 28.9 mEq/L (20.0-26.0) H 11/23/16 09:26 Base Excess 5.3 mEq/L (-3.0-3.0) H 11/23/16 09:26 O2 Saturation 91.0 % (92.0-100.0) L 11/23/16 09:26 Travis Test Positive 11/23/16 09:26 Vent Rate NA 11/23/16 09:26 Inspired O2 21 11/23/16 09:26 Tidal Volume NA 11/23/16 09:26 PEEP NA 11/23/16 09:26 Pressure (ins/psv/peep) NA 11/23/16 09:26 Critical Value LZHANG 11/23/16 09:26 Sodium 137 mEq/L (136-145) D 11/24/16 05:40 Potassium 4.1 mEq/L (3.5-5.1) 11/24/16 05:40 Chloride 104 mEq/L (98-107) 11/24/16 05:40 Carbon Dioxide 28.2 mEq/L (21.0-31.0) 11/24/16 05:40 Anion Gap 8.9 (7.0-16.0) 11/24/16 05:40 BUN 43 mg/dL (7-25) H 11/24/16 05:40 Creatinine 3.5 mg/dL (0.7-1.3) H 11/24/16 05:40 Est GFR ( Amer) 23.1 ml/min (>90) 11/24/16 05:40 Est GFR (Non-Af Amer) 19.1 ml/min 11/24/16 05:40 BUN/Creatinine Ratio 12.3 11/24/16 05:40 Glucose 109 mg/dL (70-105) H 11/24/16 05:40 Hemoglobin A1c % 5.7 % (4.0-6.0) 11/17/16 18:30 Whole Bld Lactic Acid 2.11 mmol/L (0.60-1.99) H* 11/17/16 21:04 Uric Acid 6.8 mg/dL (4.4-7.6) 11/24/16 05:40 Calcium 8.3 mg/dL (8.6-10.3) L 11/24/16 05:40 Magnesium 2.2 mg/dL (1.9-2.7) 11/18/16 06:15 Total Bilirubin 0.7 mg/dL (0.3-1.0) 11/24/16 05:40 AST 60 U/L (13-39) H 11/24/16 05:40 ALT 129 U/L (7-52) H 11/24/16 05:40 Alkaline Phosphatase 71 U/L (34-104) 11/24/16 05:40 Ammonia 60 umol/L (16-53) H 11/19/16 04:50 Creatine Kinase 287 U/L (30-223) H 11/23/16 13:37 CK-MB (CK-2) 4.1 ng/mL (0.6-6.3) 11/23/16 13:37 Troponin I 0.06 ng/mL (0.01-0.05) H D 11/18/16 22:39 B-Natriuretic Peptide 21.1 pg/mL (5.0-100.0) 11/18/16 06:15 Total Protein 6.7 gm/dL (6.0-8.3) 11/24/16 05:40 Albumin 3.3 gm/dL (4.2-5.5) L 11/24/16 05:40 Globulin 3.4 gm/dL 11/24/16 05:40 Albumin/Globulin Ratio 1.0 (1.0-1.8) 11/24/16 05:40 Triglycerides 262 mg/dL (<150) H 11/17/16 18:30 Cholesterol 252 mg/dL (<200) H 11/17/16 18:30 LDL Cholesterol Direct 170 mg/dL (75-193) 11/17/16 18:30 HDL Cholesterol 52 mg/dL (23-92) 11/17/16 18:30 TSH 5.23 uIU/ml (0.34-5.60) 11/24/16 05:15 Urine Source RANDOM 11/23/16 13:50 Urine Color YELLOW 11/23/16 13:50 Urine Clarity SLIGHT HAZY (CLEAR) 11/23/16 13:50 Urine pH 5.0 11/23/16 13:50 Ur Specific [place] 1.010 (1.005-1.030) 11/23/16 13:50 Urine Protein 100 mg/dL (NEGATIVE) H 11/23/16 13:50 Urine Glucose (UA) NEGATIVE mg/dL (NEGATIVE) 11/23/16 13:50 Urine Ketones NEGATIVE mg/dL (NEGATIVE) 11/23/16 13:50 Urine Blood LARGE (NEGATIVE) H 11/23/16 13:50 Urine Nitrate NEGATIVE (NEGATIVE) 11/23/16 13:50 Urine Bilirubin NEGATIVE (NEGATIVE) 11/23/16 13:50 Urine Urobilinogen 0.2 E.U./dL (0.2 - 1.0) 11/23/16 13:50 Ur Leukocyte Esterase NEGATIVE (NEGATIVE) 11/23/16 13:50 Urine RBC 25-50 /hpf (0-5) H 11/23/16 13:50 Urine WBC 2-5 /hpf (0-5) H 11/23/16 13:50 Ur Epithelial Cells FEW /lpf (FEW) 11/23/16 13:50 Amorphous Sediment MODERATE URATES (NONE SEEN) 11/23/16 13:50 Urine Bacteria 1+ /hpf (NONE SEEN) H 11/23/16 13:50 Ur Random Sodium 44 mmol/L 11/23/16 13:50 Urine Creatinine 54.0 mg/dl (39.0-259.0) 11/23/16 13:50 Vancomycin Peak 7.8 ug/mL (30.0-40.0) L 11/20/16 19:00 Vancomycin Trough 16.1 ug/mL (10-20) 11/24/16 05:40 Urine Opiates Screen NEGATIVE (NEGATIVE) 11/18/16 07:30 Urine Methadone Screen NEGATIVE (NEGATIVE) 11/18/16 07:30 Ur Barbiturates Screen NEGATIVE (NEGATIVE) 11/18/16 07:30 Ur Tricyclics Screen NEGATIVE (NEGATIVE) 11/18/16 07:30 Ur Phencyclidine Scrn NEGATIVE (NEGATIVE) 11/18/16 07:30 Amphetamines Screen POSITIVE (NEGATIVE) H 11/18/16 07:30 U Methamphetamines Scrn POSITIVE (NEGATIVE) H 11/18/16 07:30 U Benzodiazepines Scrn NEGATIVE (NEGATIVE) 11/18/16 07:30 U Cocaine Metab Screen NEGATIVE (NEGATIVE) 11/18/16 07:30 U Cannabinoids Screen NEGATIVE (NEGATIVE) 11/18/16 07:30 Ethyl Alcohol < 10 mg/dL (0-10) 11/17/16 18:30 RPR NONREACTIVE (NONREACTIVE) 11/17/16 18:30 - Physical Exam Vitals and I&O: Vital Signs Temp 98.2 F 11/24/16 11:57 Pulse 87 11/24/16 11:57 Resp 20 11/24/16 11:57 BP 139/77 11/24/16 11:57 Pulse Ox 95 11/24/16 11:57 Intake & Output 11/23/16 11/24/16 11/24/16 18:59 06:59 18:59 Intake Total 2080 620 Output Total 800 2700 Balance 1280 -2080 Weight (lbs) 160.118 kg 160.118 kg Intake: Intake, IV Amount 480 620 D5-0.9%Ns 1,000 ml @ 100 430 570 mls/hr IV .Q10H HUA Rx#: [id number] Levofloxacin 250mg/50mL 50 250 mg In 50 ml @ 50 mls/ hr IV Q24HR HUA Rx#: [id number] Piperacillin Sodium/ 50 Tazobact 2.25 gm In Sodium Chloride 0.9% 50 ml @ 100 mls/hr IV Q6HR HUA Rx#:[id number] Oral 1600 Output: Urine 800 2700 Other: # Bowel Movements 2 1 Active Medications: Current Medications Acetaminophen (Tylenol) 650 mg PO Q6H PRN PRN Reason: Mild Pain/Headache/T above 101 Stop: 01/16/17 21:18 Last Admin: 11/18/16 00:05 Dose: 650 mg Albuterol/Ipratropium (Duoneb Neb) 3 ml HHN [id number] HUA Stop: 01/17/17 14:59 Last Admin: 11/24/16 11:47 Dose: 3 ml Budesonide (Pulmicort) 0.5 mg HHN BIDRT HUA Stop: 01/17/17 18:59 Last Admin: 11/24/16 07:42 Dose: 0.5 mg Clonidine HCl (Catapres) 0.1 mg PO Q4HR PRN PRN Reason: For systolic over 150 Stop: 01/21/17 02:03 Last Admin: 11/24/16 09:21 Dose: 0.1 mg Enoxaparin Sodium (Lovenox) 30 mg SUBQ DAILY HUA Stop: 01/17/17 08:59 Last Admin: 11/24/16 09:22 Dose: Not Given Hydrocortisone (Hydrocortisone 1% Cream) 1 gm TP BID [facility] Stop: 01/22/17 16:59 Dextrose/Sodium Chloride (D5-0.9%Ns) 1,000 mls @ 100 mls/hr IV .Q10H HUA Stop: 01/22/17 13:45 Last Admin: 11/24/16 00:59 Dose: 100 mls/hr Levofloxacin (Levaquin Pb) 250 mg in 50 mls @ 50 mls/hr IV Q24HR HUA Stop: 01/22/17 21:14 Last Infusion: 11/23/16 23:55 Dose: Infused Lactobacillus Rhamnosus (Culturelle) 1 each PO DAILY HUA Stop: 01/20/17 08:59 Last Admin: 11/24/16 09:21 Dose: 1 each Lorazepam (Ativan) 1 mg IVP Q4H PRN; Protocol PRN Reason: Anxiety/Agitation Stop: 01/16/17 21:18 Last Admin: 11/22/16 00:45 Dose: 1 mg Losartan Potassium (Cozaar) 100 mg PO DAILY HUA Stop: 01/21/17 08:59 Last Admin: 11/24/16 09:21 Dose: 100 mg Miscellaneous (Vte Chemical Prophylaxis Screen/ Admission) 1 ea PRN PRN PRN Reason: PROTOCOL Stop: 01/19/17 09:31 Miscellaneous (Probiotic Screen) 1 ea MC PRN PRN PRN Reason: PROTOCOL Stop: 01/19/17 09:35 Miscellaneous (Clinical Monitoring) 1 ea MC PRN PRN PRN Reason: PROTOCOL Stop: 01/22/17 12:17 Ondansetron HCl (Zofran) 4 mg IVP Q6H PRN PRN Reason: Nausea / Vomiting Stop: 01/16/17 21:18 General: no acute distress, well developed HEENT: atraumatic, normocephalic, PERRLA, EOMI, moist mucous membrane Neck: supple, no thyromegaly, no lymphadenopathy Cardiovascular: S1S2, regular Lungs: clear to auscultation bilaterally, clear to percussion Abdomen: soft, no tender, no distended Extremities: other (erythema of the both legs.), no cyanosis, no clubbing, no edema Neurological: awake, alert Skin: intact Infectious Disease Assmt/Plan - Problem List Patient Problems: All Active Problems ALTERED MENTAL STATUS (Acute) - Assessment Assessment: 1. CN staph sepsis. 2. cardiomyopathy. 3. Cellulitis of both legs. 4. EVANS. 5. COPD. 6. HTN. 7. CHF. 8. Obesity. 9. LETICIA. 10. UTI. Plan: Dc vanco IV in view of renal failure. Repeat blood c/s. negative. Lac-hydrin cream to legs. DC plan when creatinine stabilizes. Continue levaquin. check trough level of vanco tomorrow. When vanco comes to be < 10 may start zyvox po/iv to complete 2 weeks therapy ( End date - 12/02/2016). Nutritional Asmnt/Malnutr-PDOC - Dietary Evaluation Malnutrition Findings (Please click <Entered> for more info): Nutritional Asmnt/Malnutrition Start: 11/19/16 14: 33 Text: Status: Complete Freq: Document 11/19/16 14:33 GSUN (Rec: 11/19/16 14:49 [facility] Nutritional Asmnt/Malnutrition Patient General Information Nutritional Screening High Risk Screening Diagnosis Hyperthermia, acute resp failure, bilateral LE cellulitis, HTN Pertinent Medical Hx/Surgical Hx HTN, hyperlipidemia Subjective Information 61 [address] visited pt twice yesterday 11/18/2016, and once today before noon, pt was asleep and on bipap all attempts. Pt was ordered low sodium diet dinner yesterday, ate 100%. Spoke to CHRISTY Webster today, pt ate 100% breakfast, good appettie, no difficulties chewing/swallowing. Current Diet Order/ Nutrition Support Low sodium Pertinent Medications D5-0.45ns, Vancomycin Pertinent Labs 11/17: triglycerides 262H, cholesterol 252H Nutritional Hx/Data Height 1.85 m Height (Calculated Centimeters) 185.4 Current Weight (lbs) 152.226 kg Weight (Calculated Kilograms) 152.2 Weight (Calculated Grams) 853140.6 [place] Body Weight 184 Weight Status Morbidly Obese GI Symptoms Skin Integrity/Comment: Lewis 13. Bilateral lower extremity non-pitting 2+ Current %PO Good (75-100%) Estimated Nutritional Goals BEE in Kcals: Adj wt of IBW Calories/Kcals/Kg AdjBw 222.5lb/101.1kg Kcals Calculated 2528-3033kcal (25-30kcal/kg) Protein: Adj wt of IBW Protein Calculated 101g (1g/kg) Fluid: ml 2528-3033ml (1ml/kcal) Nutritional Problem 1. Problem Problem Malnutrition related to Etiology energy inbalance, possibly excessive PO intake aeb Signs/Symptoms: BMI >40 Malnutrition Related to Morbid Obesity Malnutrition related to morbid obesity BMI> or equal to 40 Query Text:(Any 1 Criteria met) Intervention/Recommendation Comments 1. Continue with current diet order. 2. Current diet order providing to meet 90% of lower end of kcal needs. 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 If pt does not feel satiety, pt may have double portions low fat low sodium entrees or sides. Expected Outcomes/Goals Expected Outcomes/Goals 1. PO intake to meet at least 75% of estimated nutritional needs.
[2016-11-24] MEDS ORDERED: DOPAMINE IV PRN (16:00)
[2016-11-24] MEDS ORDERED: FLUID IV PRN (16:00)
[2016-11-24] MEDS: Hydrocortisone 1% Cream 1 gm Packet TP SCH ×2 (16:39→16:56)
[2016-11-24] MEDS: Ammonium Lactate Cream 140 gm Tube TP SCH (16:56)
[2016-11-24] MEDS: Levofloxacin 250mg/50mL 250 MG/50 ML BAG IV SCH (21:20)
[2016-11-25] MEDS: D5-0.9%NS 1,000 ML IV SCH (02:22)
[2016-11-25 05:43] LABS: % BASOPHILS 0.4 % (0.0-2.0); % EOSINOPHILS 4.2 % (0.0-5.0); % LYMPHOCYTES 10.2 % (20.0-50.0); % MONOCYTES 11.2 % (2.0-10.0); HEMATOCRIT 40.7 % (39.0-49.0); HEMOGLOBIN 13.5 gm/dL (13.2-17.3); MEAN CELL VOLUME 94.7 fl (80-99); MEAN CORPUSCULAR HEMOGLOBIN 31.5 pg (26.0-30.0); MEAN CORPUSCULAR HGB CONC 33.2 pg (28.0-36.0); MEAN PLATELET VOLUME 7.2 fl; NEUTROPHILE ABSOLUTE 6.5 Th/cmm (1.8-8.0); PLATELET COUNT 302 Th/cmm (150-400); RED CELL DISTRIBUTION WIDTH 13.5 % (11.5-20.0); WHITE BLOOD COUNT 8.8 Th/cmm (4.8-10.8)
[2016-11-25 06:13] LABS: ALB/GLOB RATIO 0.8 (1.0-1.8); ANION GAP 9.8 (7.0-16.0); BILIRUBIN,TOTAL 0.5 mg/dL (0.3-1.0); BUN/CREATININE RATIO 13.3; CALCIUM SERUM 8.5 mg/dL (8.6-10.3); CARBON DIOXIDE 28.3 mEq/L (21.0-31.0); CREATININE - SERUM 3.6 mg/dL (0.7-1.3); POTASSIUM SERUM 4.1 mEq/L (3.5-5.1); VANCOMYCIN TROUGH 10.7 ug/mL (10-20)
[2016-11-25] MEDS: Albuterol/Ipratropium Neb 3 ML AERS HHN SCH ×4 (07:07→19:59)
[2016-11-25] MEDS: Budesonide 0.5 Mg/2 mL Ud HHN SCH ×2 (07:07→19:58)
--- NOTE | 2016-11-25 09:05 | General Progress Note ---
Subjective - Review of Systems Subjective: Patient is seen and examined. Patient's denies any chest pain, shortness of breath, palpitation, dizziness, headache, fever, chills. I want to go home. Objective - Results Result Diagrams: 11/25/16 05:05 11/25/16 05:05 Recent Labs: Laboratory Last Values WBC 8.8 Th/cmm (4.8-10.8) 11/25/16 05:05 RBC 4.30 Mil/cmm (4.30-5.70) 11/25/16 05:05 Hgb 13.5 gm/dL (13.2-17.3) 11/25/16 05:05 Hct 40.7 % (39.0-49.0) 11/25/16 05:05 MCV 94.7 fl (80-99) 11/25/16 05:05 MCH 31.5 pg (26.0-30.0) H 11/25/16 05:05 MCHC Differential 33.2 pg (28.0-36.0) 11/25/16 05:05 RDW 13.5 % (11.5-20.0) 11/25/16 05:05 Plt Count 302 Th/cmm (150-400) 11/25/16 05:05 MPV 7.2 fl 11/25/16 05:05 Neutrophils % 74.0 % (40.0-80.0) 11/25/16 05:05 Lymphocytes % 10.2 % (20.0-50.0) L 11/25/16 05:05 Monocytes % 11.2 % (2.0-10.0) H 11/25/16 05:05 Eosinophils % 4.2 % (0.0-5.0) 11/25/16 05:05 Basophils % 0.4 % (0.0-2.0) 11/25/16 05:05 Neutrophils (Manual) 67 % (40-80) 11/18/16 06:15 Lymphocytes 22 % (20-50) 11/18/16 06:15 Monocytes 11 % (2-10) H 11/18/16 06:15 Platelet Estimate ADEQUATE (NORMAL) 11/18/16 06:15 Platelet Morphology NORMAL (NORMAL) 11/18/16 06:15 RBC Morph Micro Appear NORMAL (NORMAL) 11/18/16 06:15 Eos Smear Source URINE 11/24/16 06:50 Eos Smear Total Cells NONE SEEN (NONE SEEN) 11/24/16 06:50 PT 11.0 SECONDS (9.5-11.5) 11/17/16 18:30 INR 1.06 (0.5-1.4) 11/17/16 18:30 PTT (Actin FS) 21.6 SECONDS (26.0-38.0) L 11/17/16 18:30 D-Dimer 2480 ng/mL (100-400) H 11/17/16 21:08 Specimen Source Arterial 11/23/16 09:26 Sample Site Right Radial 11/23/16 09:26 pH 7.45 (7.35-7.45) 11/23/16 09:26 pCO2 43.0 mmHg (35.0-45.0) 11/23/16 09:26 pO2 58.0 mmHg (80.0-100.0) L 11/23/16 09:26 HCO3 28.9 mEq/L (20.0-26.0) H 11/23/16 09:26 Base Excess 5.3 mEq/L (-3.0-3.0) H 11/23/16 09:26 O2 Saturation 91.0 % (92.0-100.0) L 11/23/16 09:26 Travis Test Positive 11/23/16 09:26 Vent Rate NA 11/23/16 09:26 Inspired O2 21 11/23/16 09:26 Tidal Volume NA 11/23/16 09:26 PEEP NA 11/23/16 09:26 Pressure (ins/psv/peep) NA 11/23/16 09:26 Critical Value LZHANG 11/23/16 09:26 Sodium 136 mEq/L (136-145) 11/25/16 05:05 Potassium 4.1 mEq/L (3.5-5.1) 11/25/16 05:05 Chloride 102 mEq/L (98-107) 11/25/16 05:05 Carbon Dioxide 28.3 mEq/L (21.0-31.0) 11/25/16 05:05 Anion Gap 9.8 (7.0-16.0) 11/25/16 05:05 BUN 48 mg/dL (7-25) H 11/25/16 05:05 Creatinine 3.6 mg/dL (0.7-1.3) H 11/25/16 05:05 Est GFR ( Amer) 22.4 ml/min (>90) 11/25/16 05:05 Est GFR (Non-Af Amer) 18.5 ml/min 11/25/16 05:05 BUN/Creatinine Ratio 13.3 11/25/16 05:05 Glucose 118 mg/dL (70-105) H 11/25/16 05:05 Hemoglobin A1c % 5.7 % (4.0-6.0) 11/17/16 18:30 Whole Bld Lactic Acid 2.11 mmol/L (0.60-1.99) H* 11/17/16 21:04 Uric Acid 6.8 mg/dL (4.4-7.6) 11/24/16 05:40 Calcium 8.5 mg/dL (8.6-10.3) L 11/25/16 05:05 Phosphorus 5.0 mg/dL (2.5-5.0) 11/25/16 05:05 Magnesium 2.2 mg/dL (1.9-2.7) 11/18/16 06:15 Total Bilirubin 0.5 mg/dL (0.3-1.0) 11/25/16 05:05 AST 45 U/L (13-39) H 11/25/16 05:05 ALT 113 U/L (7-52) H 11/25/16 05:05 Alkaline Phosphatase 73 U/L (34-104) 11/25/16 05:05 Ammonia 60 umol/L (16-53) H 11/19/16 04:50 Creatine Kinase 287 U/L (30-223) H 11/23/16 13:37 CK-MB (CK-2) 4.1 ng/mL (0.6-6.3) 11/23/16 13:37 Troponin I 0.06 ng/mL (0.01-0.05) H D 11/18/16 22:39 B-Natriuretic Peptide 21.1 pg/mL (5.0-100.0) 11/18/16 06:15 Total Protein 7.0 gm/dL (6.0-8.3) 11/25/16 05:05 Albumin 3.2 gm/dL (4.2-5.5) L 11/25/16 05:05 Globulin 3.8 gm/dL 11/25/16 05:05 Albumin/Globulin Ratio 0.8 (1.0-1.8) L 11/25/16 05:05 Triglycerides 262 mg/dL (<150) H 11/17/16 18:30 Cholesterol 252 mg/dL (<200) H 11/17/16 18:30 LDL Cholesterol Direct 170 mg/dL (75-193) 11/17/16 18:30 HDL Cholesterol 52 mg/dL (23-92) 11/17/16 18:30 TSH 5.23 uIU/ml (0.34-5.60) 11/24/16 05:15 Urine Source RANDOM 11/23/16 13:50 Urine Color YELLOW 11/23/16 13:50 Urine Clarity SLIGHT HAZY (CLEAR) 11/23/16 13:50 Urine pH 5.0 11/23/16 13:50 Ur Specific [place] 1.010 (1.005-1.030) 11/23/16 13:50 Urine Protein 100 mg/dL (NEGATIVE) H 11/23/16 13:50 Urine Glucose (UA) NEGATIVE mg/dL (NEGATIVE) 11/23/16 13:50 Urine Ketones NEGATIVE mg/dL (NEGATIVE) 11/23/16 13:50 Urine Blood LARGE (NEGATIVE) H 11/23/16 13:50 Urine Nitrate NEGATIVE (NEGATIVE) 11/23/16 13:50 Urine Bilirubin NEGATIVE (NEGATIVE) 11/23/16 13:50 Urine Urobilinogen 0.2 E.U./dL (0.2 - 1.0) 11/23/16 13:50 Ur Leukocyte Esterase NEGATIVE (NEGATIVE) 11/23/16 13:50 Urine RBC 25-50 /hpf (0-5) H 11/23/16 13:50 Urine WBC 2-5 /hpf (0-5) H 11/23/16 13:50 Ur Epithelial Cells FEW /lpf (FEW) 11/23/16 13:50 Amorphous Sediment MODERATE URATES (NONE SEEN) 11/23/16 13:50 Urine Bacteria 1+ /hpf (NONE SEEN) H 11/23/16 13:50 Ur Random Sodium 44 mmol/L 11/23/16 13:50 Urine Creatinine 54.0 mg/dl (39.0-259.0) 11/23/16 13:50 Vancomycin Peak 7.8 ug/mL (30.0-40.0) L 11/20/16 19:00 Vancomycin Trough 10.7 ug/mL (10-20) 11/25/16 05:05 Urine Opiates Screen NEGATIVE (NEGATIVE) 11/18/16 07:30 Urine Methadone Screen NEGATIVE (NEGATIVE) 11/18/16 07:30 Ur Barbiturates Screen NEGATIVE (NEGATIVE) 11/18/16 07:30 Ur Tricyclics Screen NEGATIVE (NEGATIVE) 11/18/16 07:30 Ur Phencyclidine Scrn NEGATIVE (NEGATIVE) 11/18/16 07:30 Amphetamines Screen POSITIVE (NEGATIVE) H 11/18/16 07:30 U Methamphetamines Scrn POSITIVE (NEGATIVE) H 11/18/16 07:30 U Benzodiazepines Scrn NEGATIVE (NEGATIVE) 11/18/16 07:30 U Cocaine Metab Screen NEGATIVE (NEGATIVE) 11/18/16 07:30 U Cannabinoids Screen NEGATIVE (NEGATIVE) 11/18/16 07:30 Ethyl Alcohol < 10 mg/dL (0-10) 11/17/16 18:30 RPR NONREACTIVE (NONREACTIVE) 11/17/16 18:30 - Physical Exam Vitals and I&O: Vital Signs Temp 98.2 F 11/25/16 07:45 Pulse 87 11/25/16 07:45 Resp 20 11/25/16 07:45 BP 150/98 11/25/16 07:45 Pulse Ox 100 11/25/16 07:45 Intake & Output 11/24/16 11/25/16 11/25/16 18:59 06:59 18:59 Intake Total 1000 50 1000 Output Total 1900 Balance 1000 50 -900 Weight (lbs) 161.479 kg Intake: Intake, IV Amount 1000 50 D5-0.9%Ns 1,000 ml @ 100 1000 mls/hr IV .Q10H HUA Rx#: [id number] Levofloxacin 250mg/50mL 50 250 mg In 50 ml @ 50 mls/ hr IV Q24HR HUA Rx#: [id number] Oral 1000 Output: Urine 1900 Other: # Voids 5 # Bowel Movements 0 Active Medications: Current Medications Acetaminophen (Tylenol) 650 mg PO Q6H PRN PRN Reason: Mild Pain/Headache/T above 101 Stop: 01/16/17 21:18 Last Admin: 11/18/16 00:05 Dose: 650 mg Albuterol/Ipratropium (Duoneb Neb) 3 ml HHN [id number] HUA Stop: 01/17/17 14:59 Last Admin: 11/25/16 07:07 Dose: 3 ml Budesonide (Pulmicort) 0.5 mg HHN BIDRT HUA Stop: 01/17/17 18:59 Last Admin: 11/25/16 07:07 Dose: 0.5 mg Clonidine HCl (Catapres) 0.1 mg PO Q4HR PRN PRN Reason: For systolic over 150 Stop: 01/21/17 02:03 Last Admin: 11/24/16 09:21 Dose: 0.1 mg Enoxaparin Sodium (Lovenox) 30 mg SUBQ DAILY HUA Stop: 01/17/17 08:59 Last Admin: 11/24/16 09:22 Dose: Not Given Hydralazine HCl (Apresoline) 10 mg PO TID [facility]UA Stop: 01/23/17 20:59 Last Admin: 11/24/16 21:21 Dose: 10 mg Hydrocortisone (Hydrocortisone 1% Cream) 1 gm TP BID [facility]UA Stop: 01/22/17 16:59 Last Admin: 11/24/16 16:56 Dose: 1 gm Dextrose/Sodium Chloride (D5-0.9%Ns) 1,000 mls @ 100 mls/hr IV .Q10H HUA Stop: 01/22/17 13:45 Last Admin: 11/25/16 02:22 Dose: 100 mls/hr Levofloxacin (Levaquin Pb) 250 mg in 50 mls @ 50 mls/hr IV Q24HR HUA Stop: 01/22/17 21:14 Last Infusion: 11/24/16 22:50 Dose: Infused Dopamine HCl/Dextrose 400 mg/ (Miscellaneous) 250 mls @ 0 mls/hr IV TITR PRN; Titrate PRN Reason: Anaphylaxis Stop: 11/26/16 15:59 Lactic Acid (Lac-Hydrin Cream) 1 appl TP BID HUA Stop: 01/23/17 16:59 Last Admin: 11/24/16 16:56 Dose: 1 appl Lactobacillus Rhamnosus (Culturelle) 1 each PO DAILY HUA Stop: 01/20/17 08:59 Last Admin: 11/24/16 09:21 Dose: 1 each Lorazepam (Ativan) 1 mg IVP Q4H PRN; Protocol PRN Reason: Anxiety/Agitation Stop: 01/16/17 21:18 Last Admin: 11/22/16 00:45 Dose: 1 mg Miscellaneous (Vte Chemical Prophylaxis Screen/ Admission) 1 ea MC PRN PRN PRN Reason: PROTOCOL Stop: 01/19/17 09:31 Miscellaneous (Probiotic Screen) 1 ea MC PRN PRN PRN Reason: PROTOCOL Stop: 01/19/17 09:35 Miscellaneous (Clinical Monitoring) 1 ea MC PRN PRN PRN Reason: PROTOCOL Stop: 01/22/17 12:17 Ondansetron HCl (Zofran) 4 mg IVP Q6H PRN PRN Reason: Nausea / Vomiting Stop: 01/16/17 21:18 General: Alert, Oriented x3, No acute distress HEENT: Atraumatic, PERRLA, Mucous membr. moist/pink Neck: Supple Cardiovascular: Regular rate, Normal S1, Normal S2 Lungs: Normal air movement, Other (diffuse rhonchi.) Abdomen: Bowel sounds, Soft Extremities: Clubbing, Other (chronic venous stasis changes on both lower extremities, With some improvement of erythema.) Neurological: Normal gait, Other (decreased power on both upper and lower extremity.) Skin: Other (unremarkable) Psych/Mental Status: Mood NL Assessment/Plan - Problem List Patient Problems: All Active Problems ALTERED MENTAL STATUS (Acute) - Assessment Assessment: Current Active Problems Problem Status Onset ALTERED MENTAL STATUS Acute Acute kidney injury most likely secondary to vancomycin related, cannot rule out secondary to Zosyn causing allergic interstitial nephritis. Acute Resp failure on O2 and when necessary BiPAP. Bilateral LE cellulitis. Hypertension Hyperlipedemia. Obesity CHF. Diastolic dysfunction. 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 IV antibiotic as per infectious disease.. Continue oxygen nebulizer treatment. Monitor the blood pressure and vital signs. Continue Antihypertensive medication as ordered. General nursing care. Follow lab. Follow enterprise resource planning consultant recommendations. Acute kidney injury workup under progress. I's and O's. BiPAP Avoid anuria. Care plan reviewed with RN and patient. Nutritional Asmnt/Malnutr-PDOC - Dietary Evaluation Malnutrition Findings (Please click <Entered> for more info): Nutritional Asmnt/Malnutrition Start: 11/19/16 14: 33 Text: Status: Complete Freq: Document 11/19/16 14:33 [email or web address] (Rec: 11/19/16 14:49 GSUN [id number]) Nutritional Asmnt/Malnutrition Patient General Information Nutritional Screening High Risk Screening Diagnosis Hyperthermia, acute resp failure, bilateral LE cellulitis, HTN Pertinent Medical Hx/Surgical Hx HTN, hyperlipidemia Subjective Information 61 [address] visited pt twice yesterday 11/18/2016, and once today before noon, pt was asleep and on bipap all attempts. Pt was ordered low sodium diet dinner yesterday, ate 100%. Spoke to CHRISTY Webster today, pt ate 100% breakfast, good appettie, no difficulties chewing/swallowing. Current Diet Order/ Nutrition Support Low sodium Pertinent Medications D5-0.45ns, Vancomycin Pertinent Labs 11/17: triglycerides 262H, cholesterol 252H Nutritional Hx/Data Height 1.85 m Height (Calculated Centimeters) 185.4 Current Weight (lbs) 152.226 kg Weight (Calculated Kilograms) 152.2 Weight (Calculated Grams) 803747.6 [place] Body Weight 184 Weight Status Morbidly Obese GI Symptoms Skin Integrity/Comment: Lewis 13. Bilateral lower extremity non-pitting 2+ Current %PO Good (75-100%) Estimated Nutritional Goals BEE in Kcals: Adj wt of IBW Calories/Kcals/Kg AdjBw 222.5lb/101.1kg Kcals Calculated 2528-3033kcal (25-30kcal/kg) Protein: Adj wt of IBW Protein Calculated 101g (1g/kg) Fluid: ml 2528-3033ml (1ml/kcal) Nutritional Problem 1. Problem Problem Malnutrition related to Etiology energy inbalance, possibly excessive PO intake aeb Signs/Symptoms: BMI >40 Malnutrition Related to Morbid Obesity Malnutrition related to morbid obesity BMI> or equal to 40 Query Text:(Any 1 Criteria met) Intervention/Recommendation Comments 1. Continue with current diet order. 2. Current diet order providing to meet 90% of lower end of kcal needs. Weight trend towards IBW preferred as but[employer]aker continuous churn goal. If pt does not feel satiety, pt may have double portions low fat low sodium entrees or sides. Expected Outcomes/Goals Expected Outcomes/Goals 1. PO intake to meet at least 75% of estimated nutritional needs.
[2016-11-25] MEDS: Hydrocortisone 1% Cream 1 gm Packet TP SCH ×2 (09:53→17:34)
[2016-11-25] MEDS: Lactobacillus Rhamnosus 10 Billion CFU Capsule PO SCH (09:53)
[2016-11-25] MEDS: Ammonium Lactate Cream 140 gm Tube TP SCH ×2 (09:54→17:34)
[2016-11-25] MEDS: Enoxaparin 30 mg/0.3 mL 0.3mL Syr SUBQ SCH (09:54)
--- NOTE | 2016-11-25 10:49 | Diagnostic Imaging Report ---
Portable chest x-ray HISTORY: Shortness of breath Compared to prior exam of November 23, 2016, the patient is rotated. The heart appears enlarged. No focal pulmonary processes. IMPRESSION: 1. No change from the prior exam of November 23, 2016. 2. Cardiomegaly 3. No focal pulmonary processes
[2016-11-25] MEDS: DOPAMINE IV SCH (16:37)
[2016-11-25] MEDS: FLUID IV SCH (16:37)
[2016-11-25 18:16] LABS: ABG SOURCE Arterial; ALLEN TEST POSITIVE; BE(B) 7.1 mEq/L (-3.0-3.0); HCO3 30.2 mEq/L (20.0-26.0)
[2016-11-25 18:17] LABS: CRITICAL VALUES REPORTED BY CS; FIO2 21
[2016-11-25] MEDS: Levofloxacin 250mg/50mL 250 MG/50 ML BAG IV SCH (22:34)
[2016-11-26 07:13] LABS: ALB/GLOB RATIO 0.9 (1.0-1.8); ANION GAP 8.6 (7.0-16.0); BILIRUBIN,TOTAL 0.4 mg/dL (0.3-1.0); BUN/CREATININE RATIO 13.8; CALCIUM SERUM 8.8 mg/dL (8.6-10.3); CARBON DIOXIDE 29.1 mEq/L (21.0-31.0); CREATININE - SERUM 3.4 mg/dL (0.7-1.3); PHOSPHOROUS 5.2 mg/dL (2.5-5.0); POTASSIUM SERUM 4.7 mEq/L (3.5-5.1)
[2016-11-26 07:25] LABS: HEMATOCRIT 43.9 % (39.0-49.0); HEMOGLOBIN 14.6 gm/dL (13.2-17.3); MEAN CELL VOLUME 94.1 fl (80-99); MEAN CORPUSCULAR HEMOGLOBIN 31.3 pg (26.0-30.0); MEAN CORPUSCULAR HGB CONC 33.3 pg (28.0-36.0); MEAN PLATELET VOLUME 7.2 fl; NEUTROPHILE ABSOLUTE 5.8 Th/cmm (1.8-8.0); PLATELET COUNT 346 Th/cmm (150-400); RED BLOOD COUNT 4.67 Mil/cmm (4.30-5.70); RED CELL DISTRIBUTION WIDTH 13.6 % (11.5-20.0); WHITE BLOOD COUNT 7.7 Th/cmm (4.8-10.8)
[2016-11-26] MEDS: Budesonide 0.5 Mg/2 mL Ud HHN SCH ×2 (08:01→19:00)
[2016-11-26] MEDS: Albuterol/Ipratropium Neb 3 ML AERS HHN SCH ×4 (08:01→19:01)
[2016-11-26 08:51] LABS: BAND NEUTROPHILE 2 % (0-10); EOSINOPHIL 2 % (0-5); NEUTROPHILS 69 % (40-80); TOTAL CELLS COUNTED 100
[2016-11-26 08:52] LABS: PLATELET ESTIMATE ADEQUATE (NORMAL); PLATELET MORPHOLOGY NORMAL (NORMAL)
[2016-11-26] MEDS: Hydrocortisone 1% Cream 1 gm Packet TP SCH ×2 (09:00→16:55)
[2016-11-26] MEDS: Ammonium Lactate Cream 140 gm Tube TP SCH ×2 (09:00→16:55)
[2016-11-26] MEDS: Lactobacillus Rhamnosus 10 Billion CFU Capsule PO SCH (09:00)
[2016-11-26] MEDS: Enoxaparin 30 mg/0.3 mL 0.3mL Syr SUBQ SCH (09:01)
--- NOTE | 2016-11-26 10:50 | Diagnostic Imaging Report ---
Chest x-ray (2 views) HISTORY: Shortness of breath Compared with the prior exam of November 25, 2016, the heart is enlarged area prominence of the aortic arch. Again noted is widening of the mediastinum that corresponds to mediastinal fat noted on the earlier CT scan of November 17, 2016. Elevation the right hemidiaphragm. No acute focal pulmonary parenchymal processes. IMPRESSION: 1. No definite focal pulmonary processes or changes from the prior exam of November 25, 2016. 2. Cardiomegaly
--- NOTE | 2016-11-26 11:10 | General Progress Note ---
Subjective - Review of Systems Subjective: Patient is seen and examined. Patient's denies any chest pain, shortness of breath, palpitation, dizziness, headache, fever, chills. Laynen is going to [facility] Objective - Results Result Diagrams: 11/26/16 06:33 11/26/16 06:33 Recent Labs: Laboratory Last Values WBC 7.7 Th/cmm (4.8-10.8) 11/26/16 06:33 RBC 4.67 Mil/cmm (4.30-5.70) 11/26/16 06:33 Hgb 14.6 gm/dL (13.2-17.3) 11/26/16 06:33 Hct 43.9 % (39.0-49.0) 11/26/16 06:33 MCV 94.1 fl (80-99) 11/26/16 06:33 MCH 31.3 pg (26.0-30.0) H 11/26/16 06:33 MCHC Differential 33.3 pg (28.0-36.0) 11/26/16 06:33 RDW 13.6 % (11.5-20.0) 11/26/16 06:33 Plt Count 346 Th/cmm (150-400) 11/26/16 06:33 MPV 7.2 fl 11/26/16 06:33 Neutrophils % [employer] DESIGNER 11/26/16 06:33 Band Neutrophils % 2 % (0-10) 11/26/16 06:33 Lymphocytes % [employer] DESIGNER 11/26/16 06:33 Monocytes % [employer]HIBIT DESIGNER 11/26/16 06:33 Eosinophils % EXHIBIT DESIGNER 11/26/16 06:33 Basophils % [employer]HIBIT DESIGNER 11/26/16 06:33 Neutrophils (Manual) 69 % (40-80) 11/26/16 06:33 Lymphocytes 16 % (20-50) L 11/26/16 06:33 Monocytes 11 % (2-10) H 11/26/16 06:33 Eosinophils 2 % (0-5) 11/26/16 06:33 Platelet Estimate ADEQUATE (NORMAL) 11/26/16 06:33 Platelet Morphology NORMAL (NORMAL) 11/26/16 06:33 RBC Morph Micro Appear NORMAL (NORMAL) 11/26/16 06:33 Eos Smear Source URINE 11/24/16 06:50 Eos Smear Total Cells NONE SEEN (NONE SEEN) 11/24/16 06:50 PT 11.0 SECONDS (9.5-11.5) 11/17/16 18:30 INR 1.06 (0.5-1.4) 11/17/16 18:30 PTT (Actin FS) 21.6 SECONDS (26.0-38.0) L 11/17/16 18:30 D-Dimer 2480 ng/mL (100-400) H 11/17/16 21:08 Specimen Source Arterial 11/25/16 17:55 Sample Site Right Radial 11/25/16 17:55 pH 7.40 (7.35-7.45) 11/25/16 17:55 pCO2 54.0 mmHg (35.0-45.0) H 11/25/16 17:55 pO2 54.0 mmHg (80.0-100.0) L 11/25/16 17:55 HCO3 30.2 mEq/L (20.0-26.0) H 11/25/16 17:55 Base Excess 7.1 mEq/L (-3.0-3.0) H 11/25/16 17:55 O2 Saturation 88.0 % (92.0-100.0) L 11/25/16 17:55 Travis Test POSITIVE 11/25/16 17:55 Vent Rate NA 11/25/16 17:55 Inspired O2 21 11/25/16 17:55 Tidal Volume NA 11/25/16 17:55 PEEP NA 11/25/16 17:55 Pressure (ins/psv/peep) NA 11/25/16 17:55 Critical Value CS 11/25/16 17:55 Sodium 138 mEq/L (136-145) 11/26/16 06:33 Potassium 4.7 mEq/L (3.5-5.1) 11/26/16 06:33 Chloride 105 mEq/L (98-107) 11/26/16 06:33 Carbon Dioxide 29.1 mEq/L (21.0-31.0) 11/26/16 06:33 Anion Gap 8.6 (7.0-16.0) 11/26/16 06:33 BUN 47 mg/dL (7-25) H 11/26/16 06:33 Creatinine 3.4 mg/dL (0.7-1.3) H 11/26/16 06:33 Est GFR ( Amer) 23.9 ml/min (>90) 11/26/16 06:33 Est GFR (Non-Af Amer) 19.7 ml/min 11/26/16 06:33 BUN/Creatinine Ratio 13.8 11/26/16 06:33 Glucose 122 mg/dL (70-105) H 11/26/16 06:33 Hemoglobin A1c % 5.7 % (4.0-6.0) 11/17/16 18:30 Whole Bld Lactic Acid 2.11 mmol/L (0.60-1.99) H* 11/17/16 21:04 Uric Acid 6.8 mg/dL (4.4-7.6) 11/24/16 05:40 Calcium 8.8 mg/dL (8.6-10.3) 11/26/16 06:33 Phosphorus 5.2 mg/dL (2.5-5.0) H 11/26/16 06:33 Magnesium 2.2 mg/dL (1.9-2.7) 11/18/16 06:15 Total Bilirubin 0.4 mg/dL (0.3-1.0) 11/26/16 06:33 AST 39 U/L (13-39) 11/26/16 06:33 ALT 108 U/L (7-52) H 11/26/16 06:33 Alkaline Phosphatase 82 U/L (34-104) 11/26/16 06:33 Ammonia 60 umol/L (16-53) H 11/19/16 04:50 Creatine Kinase 287 U/L (30-223) H 11/23/16 13:37 CK-MB (CK-2) 4.1 ng/mL (0.6-6.3) 11/23/16 13:37 Troponin I 0.06 ng/mL (0.01-0.05) H D 11/18/16 22:39 B-Natriuretic Peptide 21.1 pg/mL (5.0-100.0) 11/18/16 06:15 Total Protein 7.6 gm/dL (6.0-8.3) 11/26/16 06:33 Albumin 3.6 gm/dL (4.2-5.5) L 11/26/16 06:33 Globulin 4.0 gm/dL 11/26/16 06:33 Albumin/Globulin Ratio 0.9 (1.0-1.8) L 11/26/16 06:33 Triglycerides 262 mg/dL (<150) H 11/17/16 18:30 Cholesterol 252 mg/dL (<200) H 11/17/16 18:30 LDL Cholesterol Direct 170 mg/dL (75-193) 11/17/16 18:30 HDL Cholesterol 52 mg/dL (23-92) 11/17/16 18:30 TSH 5.23 uIU/ml (0.34-5.60) 11/24/16 05:15 Urine Source RANDOM 11/23/16 13:50 Urine Color YELLOW 11/23/16 13:50 Urine Clarity SLIGHT HAZY (CLEAR) 11/23/16 13:50 Urine pH 5.0 11/23/16 13:50 Ur Specific [place] 1.010 (1.005-1.030) 11/23/16 13:50 Urine Protein 100 mg/dL (NEGATIVE) H 11/23/16 13:50 Urine Glucose (UA) NEGATIVE mg/dL (NEGATIVE) 11/23/16 13:50 Urine Ketones NEGATIVE mg/dL (NEGATIVE) 11/23/16 13:50 Urine Blood LARGE (NEGATIVE) H 11/23/16 13:50 Urine Nitrate NEGATIVE (NEGATIVE) 11/23/16 13:50 Urine Bilirubin NEGATIVE (NEGATIVE) 11/23/16 13:50 Urine Urobilinogen 0.2 E.U./dL (0.2 - 1.0) 11/23/16 13:50 Ur Leukocyte Esterase NEGATIVE (NEGATIVE) 11/23/16 13:50 Urine RBC 25-50 /hpf (0-5) H 11/23/16 13:50 Urine WBC 2-5 /hpf (0-5) H 11/23/16 13:50 Ur Epithelial Cells FEW /lpf (FEW) 11/23/16 13:50 Amorphous Sediment MODERATE URATES (NONE SEEN) 11/23/16 13:50 Urine Bacteria 1+ /hpf (NONE SEEN) H 11/23/16 13:50 Ur Random Sodium 44 mmol/L 11/23/16 13:50 Urine Creatinine 54.0 mg/dl (39.0-259.0) 11/23/16 13:50 Vancomycin Peak 7.8 ug/mL (30.0-40.0) L 11/20/16 19:00 Vancomycin Trough 10.7 ug/mL (10-20) 11/25/16 05:05 Urine Opiates Screen NEGATIVE (NEGATIVE) 11/18/16 07:30 Urine Methadone Screen NEGATIVE (NEGATIVE) 11/18/16 07:30 Ur Barbiturates Screen NEGATIVE (NEGATIVE) 11/18/16 07:30 Ur Tricyclics Screen NEGATIVE (NEGATIVE) 11/18/16 07:30 Ur Phencyclidine Scrn NEGATIVE (NEGATIVE) 11/18/16 07:30 Amphetamines Screen POSITIVE (NEGATIVE) H 11/18/16 07:30 U Methamphetamines Scrn POSITIVE (NEGATIVE) H 11/18/16 07:30 U Benzodiazepines Scrn NEGATIVE (NEGATIVE) 11/18/16 07:30 U Cocaine Metab Screen NEGATIVE (NEGATIVE) 11/18/16 07:30 U Cannabinoids Screen NEGATIVE (NEGATIVE) 11/18/16 07:30 Ethyl Alcohol < 10 mg/dL (0-10) 11/17/16 18:30 RPR NONREACTIVE (NONREACTIVE) 11/17/16 18:30 - Physical Exam Vitals and I&O: Vital Signs Temp 98.7 F 11/26/16 04:00 Pulse 83 11/26/16 09:00 Resp 20 11/26/16 08:02 BP 141/88 11/26/16 09:00 Pulse Ox 94 11/26/16 08:02 Intake & Output 11/25/16 11/26/16 11/26/16 18:59 06:59 18:59 Intake Total 1000 1900 Output Total 1900 1250 2200 Balance -900 -1250 -300 Weight (lbs) 161.479 kg 151.953 kg 149.685 kg Intake: Oral 1000 1900 Output: Urine 1900 1250 2200 Other: # Voids 5 # Bowel Movements 0 0 Active Medications: Current Medications Acetaminophen (Tylenol) 650 mg PO Q6H PRN PRN Reason: Mild Pain/Headache/T above 101 Stop: 01/16/17 21:18 Last Admin: 11/18/16 00:05 Dose: 650 mg Albuterol/Ipratropium (Duoneb Neb) 3 ml HHN [id number] UHA Stop: 01/17/17 14:59 Last Admin: 11/26/16 08:01 Dose: Not Given Budesonide (Pulmicort) 0.5 mg HHN BIDRT HUA Stop: 01/17/17 18:59 Last Admin: 11/26/16 08:01 Dose: Not Given Clonidine HCl (Catapres) 0.1 mg PO Q4HR PRN PRN Reason: For systolic over 150 Stop: 01/21/17 02:03 Last Admin: 11/24/16 09:21 Dose: 0.1 mg Enoxaparin Sodium (Lovenox) 30 mg SUBQ DAILY HUA Stop: 01/17/17 08:59 Last Admin: 11/26/16 09:01 Dose: 30 mg Hydralazine HCl (Apresoline) 10 mg PO TID HUA Stop: 01/23/17 20:59 Last Admin: 11/26/16 09:00 Dose: 10 mg Hydrocortisone (Hydrocortisone 1% Cream) 1 gm TP BID HUA Stop: 01/22/17 16:59 Last Admin: 11/26/16 09:00 Dose: 1 gm Dextrose/Sodium Chloride (D5-0.9%Ns) 1,000 mls @ 100 mls/hr IV .Q10H HUA Stop: 01/22/17 13:45 Last Admin: 11/25/16 02:22 Dose: 100 mls/hr Levofloxacin (Levaquin Pb) 250 mg in 50 mls @ 50 mls/hr IV Q24HR HUA Stop: 01/22/17 21:14 Last Admin: 11/25/16 22:34 Dose: 50 mls/hr Dopamine HCl/Dextrose 400 mg/ (Miscellaneous) 250 mls @ 0 mls/hr IV TITR HUA PRN Reason: Titrate Stop: 11/27/16 15:59 Last Admin: 11/25/16 16:37 Dose: 8.54 mls/hr Lactic Acid (Lac-Hydrin Cream) 1 appl TP BID HUA Stop: 01/23/17 16:59 Last Admin: 11/26/16 09:00 Dose: 1 appl Lactobacillus Rhamnosus (Culturelle) 1 each PO DAILY HUA Stop: 01/20/17 08:59 Last Admin: 11/26/16 09:00 Dose: 1 each Miscellaneous (Vte Chemical Prophylaxis Screen/ Admission) 1 ea PRN PRN PRN Reason: PROTOCOL Stop: 01/19/17 09:31 Miscellaneous (Probiotic Screen) 1 ea MC PRN PRN PRN Reason: PROTOCOL Stop: 01/19/17 09:35 Miscellaneous (Clinical Monitoring) 1 ea MC PRN PRN PRN Reason: PROTOCOL Stop: 01/22/17 12:17 Ondansetron HCl (Zofran) 4 mg IVP Q6H PRN PRN Reason: Nausea / Vomiting Stop: 01/16/17 21:18 General: Alert, Oriented x3, No acute distress HEENT: Atraumatic, PERRLA, Mucous membr. moist/pink Neck: Supple Cardiovascular: Regular rate, Normal S1, Normal S2 Lungs: Normal air movement, Other (diffuse rhonchi.) Abdomen: Bowel sounds, Soft Extremities: Clubbing, Other (chronic venous stasis changes on both lower extremities, With some improvement of erythema.) Neurological: Normal gait, Other (decreased power on both upper and lower extremity.) Skin: Other (unremarkable) Psych/Mental Status: Mood NL Assessment/Plan - Problem List Patient Problems: All Active Problems ALTERED MENTAL STATUS (Acute) - Assessment Assessment: Current Active Problems Problem Status Onset ALTERED MENTAL STATUS Acute Acute kidney injury most likely secondary to vancomycin related, cannot rule out secondary to Zosyn causing allergic interstitial nephritis clinically improving. Acute Resp failure on O2 and when necessary BiPAP. Bilateral LE cellulitis. Hypertension Hyperlipedemia. Obesity CHF. Diastolic dysfunction. 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 IV antibiotic as per infectious disease.. Continue oxygen nebulizer treatment. Monitor the blood pressure and vital signs. Continue Antihypertensive medication as ordered. General nursing care. Follow lab. Follow consultants recommendations. I's and O's. BiPAP Avoid anuria. Care plan reviewed with RN and patient. Nutritional Asmnt/Malnutr-PDOC - Dietary Evaluation Malnutrition Findings (Please click <Entered> for more info): Nutritional Asmnt/Malnutrition Start: 11/19/16 14: 33 Text: Status: Complete Freq: Document 11/19/16 14:33 GSUN (Rec: 11/19/16 14:49 [id number]) Nutritional Asmnt/Malnutrition Patient General Information Nutritional Screening High Risk Screening Diagnosis Hyperthermia, acute resp failure, bilateral LE cellulitis, HTN Pertinent Medical Hx/Surgical Hx HTN, hyperlipidemia Subjective Information 61 [address] visited pt twice yesterday 11/18/2016, and once today before noon, pt was asleep and on bipap all attempts. Pt was ordered low sodium diet dinner yesterday, ate 100%. Spoke to CHRISTY Webster today, pt ate 100% breakfast, good appettie, no difficulties chewing/swallowing. Current Diet Order/ Nutrition Support Low sodium Pertinent Medications D5-0.45ns, Vancomycin Pertinent Labs 11/17: triglycerides 262H, cholesterol 252H Nutritional Hx/Data Height 1.85 m Height (Calculated Centimeters) 185.4 Current Weight (lbs) 152.226 kg Weight (Calculated Kilograms) 152.2 Weight (Calculated Grams) 365939.6 [place] Body Weight 184 Weight Status Morbidly Obese GI Symptoms Skin Integrity/Comment: Lewis 13. Bilateral lower extremity non-pitting 2+ Current %PO Good (75-100%) Estimated Nutritional Goals BEE in Kcals: Adj wt of IBW Calories/Kcals/Kg AdjBw 222.5lb/101.1kg Kcals Calculated 2528-3033kcal (25-30kcal/kg) Protein: Adj wt of IBW Protein Calculated 101g (1g/kg) Fluid: ml 2528-3033ml (1ml/kcal) Nutritional Problem 1. Problem Problem Malnutrition related to Etiology energy inbalance, possibly excessive PO intake aeb Signs/Symptoms: BMI >40 Malnutrition Related to Morbid Obesity Malnutrition related to morbid obesity BMI> or equal to 40 Query Text:(Any 1 Criteria met) Intervention/Recommendation Comments 1. Continue with current diet order. 2. Current diet order providing to meet 90% of lower end of kcal needs. Weight trend towards IBW preferred as half-way goal. If pt does not feel satiety, pt may have double portions low fat low sodium entrees or sides. Expected Outcomes/Goals Expected Outcomes/Goals 1. PO intake to meet at least 75% of estimated nutritional needs.
[2016-11-26] MEDS: D5-0.9%NS 1,000 ML IV SCH (17:02)
[2016-11-26] MEDS: Levofloxacin 250mg/50mL 250 MG/50 ML BAG IV SCH (22:11)
--- NOTE | 2016-11-26 23:44 | Infectious Disease Prog Note ---
Infectious Disease Subjective - Review of Systems Service Date: 11/26/16 Subjective: there is no new change, feels better. Infectious Disease Objective - Results Result Diagrams: 11/26/16 06:33 11/26/16 06:33 Recent Labs: Laboratory Last Values WBC 7.7 Th/cmm (4.8-10.8) 11/26/16 06:33 RBC 4.67 Mil/cmm (4.30-5.70) 11/26/16 06:33 Hgb 14.6 gm/dL (13.2-17.3) 11/26/16 06:33 Hct 43.9 % (39.0-49.0) 11/26/16 06:33 MCV 94.1 fl (80-99) 11/26/16 06:33 MCH 31.3 pg (26.0-30.0) H 11/26/16 06:33 MCHC Differential 33.3 pg (28.0-36.0) 11/26/16 06:33 RDW 13.6 % (11.5-20.0) 11/26/16 06:33 Plt Count 346 Th/cmm (150-400) 11/26/16 06:33 MPV 7.2 fl 11/26/16 06:33 Neutrophils % [employer] [place] 11/26/16 06:33 Band Neutrophils % 2 % (0-10) 11/26/16 06:33 Lymphocytes % [employer] [place] 11/26/16 06:33 Monocytes % [employer] [place] 11/26/16 06:33 Eosinophils % [employer] [place] 11/26/16 06:33 Basophils % [employer] [place] 11/26/16 06:33 Neutrophils (Manual) 69 % (40-80) 11/26/16 06:33 Lymphocytes 16 % (20-50) L 11/26/16 06:33 Monocytes 11 % (2-10) H 11/26/16 06:33 Eosinophils 2 % (0-5) 11/26/16 06:33 Platelet Estimate ADEQUATE (NORMAL) 11/26/16 06:33 Platelet Morphology NORMAL (NORMAL) 11/26/16 06:33 RBC Morph Micro Appear NORMAL (NORMAL) 11/26/16 06:33 Eos Smear Source URINE 11/24/16 06:50 Eos Smear Total Cells NONE SEEN (NONE SEEN) 11/24/16 06:50 PT 11.0 SECONDS (9.5-11.5) 11/17/16 18:30 INR 1.06 (0.5-1.4) 11/17/16 18:30 PTT (Actin FS) 21.6 SECONDS (26.0-38.0) L 11/17/16 18:30 D-Dimer 2480 ng/mL (100-400) H 11/17/16 21:08 Specimen Source Arterial 11/25/16 17:55 Sample Site Right Radial 11/25/16 17:55 pH 7.40 (7.35-7.45) 11/25/16 17:55 pCO2 54.0 mmHg (35.0-45.0) H 11/25/16 17:55 pO2 54.0 mmHg (80.0-100.0) L 11/25/16 17:55 HCO3 30.2 mEq/L (20.0-26.0) H 11/25/16 17:55 Base Excess 7.1 mEq/L (-3.0-3.0) H 11/25/16 17:55 O2 Saturation 88.0 % (92.0-100.0) L 11/25/16 17:55 Travis Test POSITIVE 11/25/16 17:55 Vent Rate NA 11/25/16 17:55 Inspired O2 21 11/25/16 17:55 Tidal Volume NA 11/25/16 17:55 PEEP NA 11/25/16 17:55 Pressure (ins/psv/peep) NA 11/25/16 17:55 Critical Value CS 11/25/16 17:55 Sodium 138 mEq/L (136-145) 11/26/16 06:33 Potassium 4.7 mEq/L (3.5-5.1) 11/26/16 06:33 Chloride 105 mEq/L (98-107) 11/26/16 06:33 Carbon Dioxide 29.1 mEq/L (21.0-31.0) 11/26/16 06:33 Anion Gap 8.6 (7.0-16.0) 11/26/16 06:33 BUN 47 mg/dL (7-25) H 11/26/16 06:33 Creatinine 3.4 mg/dL (0.7-1.3) H 11/26/16 06:33 Est GFR ( Amer) 23.9 ml/min (>90) 11/26/16 06:33 Est GFR (Non-Af Amer) 19.7 ml/min 11/26/16 06:33 BUN/Creatinine Ratio 13.8 11/26/16 06:33 Glucose 122 mg/dL (70-105) H 11/26/16 06:33 Hemoglobin A1c % 5.7 % (4.0-6.0) 11/17/16 18:30 Whole Bld Lactic Acid 2.11 mmol/L (0.60-1.99) H* 11/17/16 21:04 Uric Acid 6.8 mg/dL (4.4-7.6) 11/24/16 05:40 Calcium 8.8 mg/dL (8.6-10.3) 11/26/16 06:33 Phosphorus 5.2 mg/dL (2.5-5.0) H 11/26/16 06:33 Magnesium 2.2 mg/dL (1.9-2.7) 11/18/16 06:15 Total Bilirubin 0.4 mg/dL (0.3-1.0) 11/26/16 06:33 AST 39 U/L (13-39) 11/26/16 06:33 ALT 108 U/L (7-52) H 11/26/16 06:33 Alkaline Phosphatase 82 U/L (34-104) 11/26/16 06:33 Ammonia 60 umol/L (16-53) H 11/19/16 04:50 Creatine Kinase 287 U/L (30-223) H 11/23/16 13:37 CK-MB (CK-2) 4.1 ng/mL (0.6-6.3) 11/23/16 13:37 Troponin I 0.06 ng/mL (0.01-0.05) H D 11/18/16 22:39 B-Natriuretic Peptide 21.1 pg/mL (5.0-100.0) 11/18/16 06:15 Total Protein 7.6 gm/dL (6.0-8.3) 11/26/16 06:33 Albumin 3.6 gm/dL (4.2-5.5) L 11/26/16 06:33 Globulin 4.0 gm/dL 11/26/16 06:33 Albumin/Globulin Ratio 0.9 (1.0-1.8) L 11/26/16 06:33 Triglycerides 262 mg/dL (<150) H 11/17/16 18:30 Cholesterol 252 mg/dL (<200) H 11/17/16 18:30 LDL Cholesterol Direct 170 mg/dL (75-193) 11/17/16 18:30 HDL Cholesterol 52 mg/dL (23-92) 11/17/16 18:30 TSH 5.23 uIU/ml (0.34-5.60) 11/24/16 05:15 Urine Source RANDOM 11/23/16 13:50 Urine Color YELLOW 11/23/16 13:50 Urine Clarity SLIGHT HAZY (CLEAR) 11/23/16 13:50 Urine pH 5.0 11/23/16 13:50 Ur Specific [place] 1.010 (1.005-1.030) 11/23/16 13:50 Urine Protein 100 mg/dL (NEGATIVE) H 11/23/16 13:50 Urine Glucose (UA) NEGATIVE mg/dL (NEGATIVE) 11/23/16 13:50 Urine Ketones NEGATIVE mg/dL (NEGATIVE) 11/23/16 13:50 Urine Blood LARGE (NEGATIVE) H 11/23/16 13:50 Urine Nitrate NEGATIVE (NEGATIVE) 11/23/16 13:50 Urine Bilirubin NEGATIVE (NEGATIVE) 11/23/16 13:50 Urine Urobilinogen 0.2 E.U./dL (0.2 - 1.0) 11/23/16 13:50 Ur Leukocyte Esterase NEGATIVE (NEGATIVE) 11/23/16 13:50 Urine RBC 25-50 /hpf (0-5) H 11/23/16 13:50 Urine WBC 2-5 /hpf (0-5) H 11/23/16 13:50 Ur Epithelial Cells FEW /lpf (FEW) 11/23/16 13:50 Amorphous Sediment MODERATE URATES (NONE SEEN) 11/23/16 13:50 Urine Bacteria 1+ /hpf (NONE SEEN) H 11/23/16 13:50 Ur Random Sodium 44 mmol/L 11/23/16 13:50 Urine Creatinine 54.0 mg/dl (39.0-259.0) 11/23/16 13:50 Vancomycin Peak 7.8 ug/mL (30.0-40.0) L 11/20/16 19:00 Vancomycin Trough 10.7 ug/mL (10-20) 11/25/16 05:05 Urine Opiates Screen NEGATIVE (NEGATIVE) 11/18/16 07:30 Urine Methadone Screen NEGATIVE (NEGATIVE) 11/18/16 07:30 Ur Barbiturates Screen NEGATIVE (NEGATIVE) 11/18/16 07:30 Ur Tricyclics Screen NEGATIVE (NEGATIVE) 11/18/16 07:30 Ur Phencyclidine Scrn NEGATIVE (NEGATIVE) 11/18/16 07:30 Amphetamines Screen POSITIVE (NEGATIVE) H 11/18/16 07:30 U Methamphetamines Scrn POSITIVE (NEGATIVE) H 11/18/16 07:30 U Benzodiazepines Scrn NEGATIVE (NEGATIVE) 11/18/16 07:30 U Cocaine Metab Screen NEGATIVE (NEGATIVE) 11/18/16 07:30 U Cannabinoids Screen NEGATIVE (NEGATIVE) 11/18/16 07:30 Ethyl Alcohol < 10 mg/dL (0-10) 11/17/16 18:30 RPR NONREACTIVE (NONREACTIVE) 11/17/16 18:30 - Physical Exam Vitals and I&O: Vital Signs Temp 98.5 F 11/26/16 16:00 Pulse 93 11/26/16 19:02 Resp 19 11/26/16 19:02 BP 127/99 11/26/16 16:00 Pulse Ox 94 11/26/16 19:02 Intake & Output 11/26/16 11/26/16 11/27/16 06:59 18:59 06:59 Intake Total 50 1900 2200 Output Total 1250 2200 Balance -1200 -300 2200 Weight (lbs) 151.953 kg 149.685 kg 149.685 kg Intake: Intake, IV Amount 50 Levofloxacin 250mg/50mL 50 250 mg In 50 ml @ 50 mls/ hr IV Q24HR [facility] Rx#: [id number] Oral 1900 2200 Output: Urine 1250 2200 Other: # Voids 1,850 # Bowel Movements 0 Active Medications: Current Medications Acetaminophen (Tylenol) 650 mg PO Q6H PRN PRN Reason: Mild Pain/Headache/T above 101 Stop: 01/16/17 21:18 Last Admin: 11/18/16 00:05 Dose: 650 mg Albuterol/Ipratropium (Duoneb Neb) 3 ml HHN [id number] [facility] Stop: 01/17/17 14:59 Last Admin: 11/26/16 19:01 Dose: Not Given Budesonide (Pulmicort) 0.5 mg HHN BIDRT HUA Stop: 01/17/17 18:59 Last Admin: 11/26/16 19:00 Dose: Not Given Clonidine HCl (Catapres) 0.1 mg PO Q4HR PRN PRN Reason: For systolic over 150 Stop: 01/21/17 02:03 Last Admin: 11/24/16 09:21 Dose: 0.1 mg Enoxaparin Sodium (Lovenox) 30 mg SUBQ DAILY HUA Stop: 01/17/17 08:59 Last Admin: 11/26/16 09:01 Dose: 30 mg Hydralazine HCl (Apresoline) 10 mg PO TID HUA Stop: 01/23/17 20:59 Last Admin: 11/26/16 22:14 Dose: Not Given Hydrocortisone (Hydrocortisone 1% Cream) 1 gm TP BID HUA Stop: 01/22/17 16:59 Last Admin: 11/26/16 16:55 Dose: 1 gm Dextrose/Sodium Chloride (D5-0.9%Ns) 1,000 mls @ 100 mls/hr IV .Q10H HUA Stop: 01/22/17 13:45 Last Admin: 11/26/16 17:02 Dose: 100 mls/hr Levofloxacin (Levaquin Pb) 250 mg in 50 mls @ 50 mls/hr IV Q24HR HUA Stop: 01/22/17 21:14 Last Admin: 11/26/16 22:11 Dose: 50 mls/hr Dopamine HCl/Dextrose 400 mg/ (Miscellaneous) 250 mls @ 0 mls/hr IV TITR HUA PRN Reason: Titrate Stop: 11/27/16 15:59 Last Admin: 11/25/16 16:37 Dose: 8.54 mls/hr Lactic Acid (Lac-Hydrin Cream) 1 appl TP BID HUA Stop: 01/23/17 16:59 Last Admin: 11/26/16 16:55 Dose: 1 appl Lactobacillus Rhamnosus (Culturelle) 1 each PO DAILY HUA Stop: 01/20/17 08:59 Last Admin: 11/26/16 09:00 Dose: 1 each Miscellaneous (Vte Chemical Prophylaxis Screen/ Admission) 1 ea MC PRN PRN PRN Reason: PROTOCOL Stop: 01/19/17 09:31 Miscellaneous (Probiotic Screen) 1 ea PRN PRN PRN Reason: PROTOCOL Stop: 01/19/17 09:35 Miscellaneous (Clinical Monitoring) 1 ea MC PRN PRN PRN Reason: PROTOCOL Stop: 01/22/17 12:17 Ondansetron HCl (Zofran) 4 mg IVP Q6H PRN PRN Reason: Nausea / Vomiting Stop: 01/16/17 21:18 General: no acute distress, other (obese) HEENT: atraumatic, normocephalic Neck: supple, no thyromegaly, no rigid Cardiovascular: S1S2, regular Lungs: clear to auscultation bilaterally, clear to percussion Abdomen: soft, bowel sounds, no tender, no hepatomegaly, no splenomegaly Extremities: no cyanosis, no edema Neurological: awake, alert, oriented Infectious Disease Assmt/Plan - Problem List Patient Problems: All Active Problems ALTERED MENTAL STATUS (Acute) - Assessment Assessment: 1. CN staph sepsis. 2. cardiomyopathy. 3. Cellulitis of both legs. 4. EVANS. 5. COPD. 6. HTN. 7. CHF. 8. Obesity. 9. LETICIA. 10. UTI. Plan: Dc vanco IV in view of renal failure. Repeat blood c/s. negative. Lac-hydrin cream to legs. DC plan when creatinine stabilizes. DC levaquin. check trough level of vanco tomorrow. When vanco comes to be < 10 may start zyvox po/iv to complete 2 weeks therapy ( End date - 12/02/2016). Nutritional Asmnt/Malnutr-PDOC - Dietary Evaluation Malnutrition Findings (Please click <Entered> for more info): Nutritional Asmnt/Malnutrition Start: 11/19/16 14: 33 Text: Status: Complete Freq: Document 11/19/16 14:33 GSUN (Rec: 11/19/16 14:49 [id number]) Nutritional Asmnt/Malnutrition Patient General Information Nutritional Screening High Risk Screening Diagnosis Hyperthermia, acute resp failure, bilateral LE cellulitis, HTN Pertinent Medical Hx/Surgical Hx HTN, hyperlipidemia Subjective Information 61 [address] visited pt twice yesterday 11/18/2016, and once today before noon, pt was asleep and on bipap all attempts. Pt was ordered low sodium diet dinner yesterday, ate 100%. Spoke to CHRISTY Webster today, pt ate 100% breakfast, good appettie, no difficulties chewing/swallowing. Current Diet Order/ Nutrition Support Low sodium Pertinent Medications D5-0.45ns, Vancomycin Pertinent Labs 11/17: triglycerides 262H, cholesterol 252H Nutritional Hx/Data Height 1.85 m Height (Calculated Centimeters) 185.4 Current Weight (lbs) 152.226 kg Weight (Calculated Kilograms) 152.2 Weight (Calculated Grams) 587599.6 Excel Body Weight 184 Weight Status Morbidly Obese GI Symptoms Skin Integrity/Comment: Lewis 13. Bilateral lower extremity non-pitting 2+ Current %PO Good (75-100%) Estimated Nutritional Goals BEE in Kcals: Adj wt of IBW Calories/Kcals/Kg AdjBw 222.5lb/101.1kg Kcals Calculated 2528-3033kcal (25-30kcal/kg) Protein: Adj wt of IBW Protein Calculated 101g (1g/kg) Fluid: ml 2528-3033ml (1ml/kcal) Nutritional Problem 1. Problem Problem Malnutrition related to Etiology energy inbalance, possibly excessive PO intake aeb Signs/Symptoms: BMI >40 Malnutrition Related to Morbid Obesity Malnutrition related to morbid obesity BMI> or equal to 40 Query Text:(Any 1 Criteria met) Intervention/Recommendation Comments 1. Continue with current diet order. 2. Current diet order providing to meet 90% of lower end of kcal needs. Weight trend towards IBW preferred as group home goal. If pt does not feel satiety, pt may have double portions low fat low sodium entrees or sides. Expected Outcomes/Goals Expected Outcomes/Goals 1. PO intake to meet at least 75% of estimated nutritional needs.
[2016-11-27] MEDS ORDERED: DOPamine 400 MG/250 ML BAG IV ONE (02:56)
[2016-11-27] MEDS: D5-0.9%NS 1,000 ML IV SCH (03:11)
[2016-11-27] MEDS: FLUID IV SCH (03:12)
[2016-11-27] MEDS: DOPAMINE IV SCH (03:12)
[2016-11-27 07:12] LABS: % BASOPHILS 0.5 % (0.0-2.0); % EOSINOPHILS 4.2 % (0.0-5.0); % LYMPHOCYTES 11.4 % (20.0-50.0); % MONOCYTES 10.7 % (2.0-10.0); % NEUTROPHILS 73.2 % (40.0-80.0); HEMATOCRIT 45.6 % (39.0-49.0); HEMOGLOBIN 15.1 gm/dL (13.2-17.3); MEAN CELL VOLUME 94.2 fl (80-99); MEAN CORPUSCULAR HEMOGLOBIN 31.2 pg (26.0-30.0); MEAN CORPUSCULAR HGB CONC 33.1 pg (28.0-36.0); MEAN PLATELET VOLUME 6.7 fl; NEUTROPHILE ABSOLUTE 6.1 Th/cmm (1.8-8.0); PLATELET COUNT 357 Th/cmm (150-400); RED BLOOD COUNT 4.84 Mil/cmm (4.30-5.70); RED CELL DISTRIBUTION WIDTH 13.4 % (11.5-20.0); WHITE BLOOD COUNT 8.4 Th/cmm (4.8-10.8)
[2016-11-27 07:17] LABS: ANION GAP 9.2 (7.0-16.0); BUN/CREATININE RATIO 13.3; CALCIUM SERUM 9.2 mg/dL (8.6-10.3); CARBON DIOXIDE 27.4 mEq/L (21.0-31.0); POTASSIUM SERUM 4.6 mEq/L (3.5-5.1)
[2016-11-27] MEDS: Albuterol/Ipratropium Neb 3 ML AERS HHN SCH (07:57)
--- NOTE | 2016-11-27 09:49 | Discharge Summary ---
General Discharge Summary - Discharge Summary Date of Admission: 11/17/16 Admitting Diagnosis: altered mental status and high-grade fever. Patient Problems: All Active Problems ALTERED MENTAL STATUS (Acute) Discharge Date: 11/27/16 Discharge Diagnosis: Staphylococcus negative sepsis, acute kidney injury, diastolic dysfunction, Laboratory Findings: Laboratory Tests 11/18/16 11/18/16 11/18/16 05:00 06:15 06:15 WBC 7.8 D RBC 5.04 Hgb 15.5 Hct 46.1 MCV 91.4 MCH 30.8 H MCHC Differential 33.7 RDW 13.6 Plt Count 218 D MPV 7.3 Neutrophils % Band Neutrophils % Lymphocytes % Monocytes % Eosinophils % Basophils % Neutrophils (Manual) 67 Lymphocytes 22 Monocytes 11 H Eosinophils Platelet Estimate ADEQUATE Platelet Morphology NORMAL RBC Morph Micro Appear NORMAL Eos Smear Source Eos Smear Total Cells Specimen Source ARTERIAL Sample Site Left Radial pH 7.35 pCO2 54.0 H pO2 196.0 H HCO3 27.0 H Base Excess 3.1 H O2 Saturation 100.0 Travis Test Positive Vent Rate N/A Inspired O2 100 Tidal Volume N/A PEEP N/A Pressure (ins/psv/peep) N/A Critical Value DV Sodium 129 L Potassium 3.5 Chloride 97 L Carbon Dioxide 26.1 Anion Gap 9.4 BUN 22 Creatinine 1.4 H Est GFR ( Amer) > 60.0 Est GFR (Non-Af Amer) 54.9 BUN/Creatinine Ratio 15.7 Glucose 140 H Uric Acid Calcium 8.2 L Phosphorus Magnesium 2.2 Total Bilirubin 0.7 AST 86 H ALT 96 H Alkaline Phosphatase 69 Ammonia Creatine Kinase CK-MB (CK-2) Troponin I B-Natriuretic Peptide Total Protein 7.2 Albumin 3.9 L Globulin 3.3 Albumin/Globulin Ratio 1.2 TSH Urine Source Urine Color Urine Clarity Urine pH Ur Specific [place] Urine Protein Urine Glucose (UA) Urine Ketones Urine Blood Urine Nitrate Urine Bilirubin Urine Urobilinogen Ur Leukocyte Esterase Urine RBC Urine WBC Ur Epithelial Cells Amorphous Sediment Urine Bacteria Ur Random Sodium Urine Creatinine Vancomycin Peak Vancomycin Trough Urine Opiates Screen Urine Methadone Screen Ur Barbiturates Screen Ur Tricyclics Screen Ur Phencyclidine Scrn Amphetamines Screen U Methamphetamines Scrn U Benzodiazepines Scrn U Cocaine Metab Screen U Cannabinoids Screen 11/18/16 11/18/16 11/18/16 06:15 07:30 07:30 WBC RBC Hgb Hct MCV MCH MCHC Differential RDW Plt Count MPV Neutrophils % Band Neutrophils % Lymphocytes % Monocytes % Eosinophils % Basophils % Neutrophils (Manual) Lymphocytes Monocytes Eosinophils Platelet Estimate Platelet Morphology RBC Morph Micro Appear Eos Smear Source Eos Smear Total Cells Specimen Source Sample Site pH pCO2 pO2 HCO3 Base Excess O2 Saturation Travis Test Vent Rate Inspired O2 Tidal Volume PEEP Pressure (ins/psv/peep) Critical Value Sodium Potassium Chloride Carbon Dioxide Anion Gap BUN Creatinine Est GFR ( Amer) Est GFR (Non-Af Amer) BUN/Creatinine Ratio Glucose Uric Acid Calcium Phosphorus Magnesium Total Bilirubin AST ALT Alkaline Phosphatase Ammonia Creatine Kinase CK-MB (CK-2) Troponin I 0.19 H* D B-Natriuretic Peptide 21.1 Total Protein Albumin Globulin Albumin/Globulin Ratio TSH Urine Source CLEAN C Urine Color YELLOW Urine Clarity SLIGHT HAZY Urine pH 5.5 Ur Specific [place] 1.015 Urine Protein TRACE Urine Glucose (UA) NEGATIVE Urine Ketones NEGATIVE Urine Blood MODERATE H Urine Nitrate NEGATIVE Urine Bilirubin NEGATIVE Urine Urobilinogen 0.2 Ur Leukocyte Esterase NEGATIVE Urine RBC 2-5 H Urine WBC 0-2 Ur Epithelial Cells FEW Amorphous Sediment Urine Bacteria NONE SEEN Ur Random Sodium Urine Creatinine Vancomycin Peak Vancomycin Trough Urine Opiates Screen NEGATIVE Urine Methadone Screen NEGATIVE Ur Barbiturates Screen NEGATIVE Ur Tricyclics Screen NEGATIVE Ur Phencyclidine Scrn NEGATIVE Amphetamines Screen POSITIVE H U Methamphetamines Scrn POSITIVE H U Benzodiazepines Scrn NEGATIVE U Cocaine Metab Screen NEGATIVE U Cannabinoids Screen NEGATIVE 11/18/16 11/18/16 11/18/16 08:22 14:11 14:11 WBC RBC Hgb Hct MCV MCH MCHC Differential RDW Plt Count MPV Neutrophils % Band Neutrophils % Lymphocytes % Monocytes % Eosinophils % Basophils % Neutrophils (Manual) Lymphocytes Monocytes Eosinophils Platelet Estimate Platelet Morphology RBC Morph Micro Appear Eos Smear Source Eos Smear Total Cells Specimen Source Arterial Sample Site Right Radial pH 7.37 pCO2 51.0 H pO2 103.0 H HCO3 27.5 H Base Excess 3.3 H O2 Saturation 98.0 Travis Test Positive Vent Rate 12 Inspired O2 50 Tidal Volume NA PEEP 6 Pressure (ins/psv/peep) 6 Critical Value LZHANG Sodium Potassium Chloride Carbon Dioxide Anion Gap BUN Creatinine Est GFR ( Amer) Est GFR (Non-Af Amer) BUN/Creatinine Ratio Glucose Uric Acid Calcium Phosphorus Magnesium Total Bilirubin AST ALT Alkaline Phosphatase Ammonia Creatine Kinase 934 H CK-MB (CK-2) 4.7 Troponin I 0.10 H* D B-Natriuretic Peptide Total Protein Albumin Globulin Albumin/Globulin Ratio TSH Urine Source Urine Color Urine Clarity Urine pH Ur Specific [place] Urine Protein Urine Glucose (UA) Urine Ketones Urine Blood Urine Nitrate Urine Bilirubin Urine Urobilinogen Ur Leukocyte Esterase Urine RBC Urine WBC Ur Epithelial Cells Amorphous Sediment Urine Bacteria Ur Random Sodium Urine Creatinine Vancomycin Peak Vancomycin Trough Urine Opiates Screen Urine Methadone Screen Ur Barbiturates Screen Ur Tricyclics Screen Ur Phencyclidine Scrn Amphetamines Screen U Methamphetamines Scrn U Benzodiazepines Scrn U Cocaine Metab Screen U Cannabinoids Screen 11/18/16 11/19/16 11/19/16 22:39 04:50 04:50 WBC 9.0 RBC 4.72 Hgb 14.8 Hct 43.8 MCV 92.9 MCH 31.4 H MCHC Differential 33.8 RDW 13.8 Plt Count 202 MPV 7.3 Neutrophils % 74.1 Band Neutrophils % Lymphocytes % 13.3 L Monocytes % 9.9 Eosinophils % 2.2 Basophils % 0.5 Neutrophils (Manual) Lymphocytes Monocytes Eosinophils Platelet Estimate Platelet Morphology RBC Morph Micro Appear Eos Smear Source Eos Smear Total Cells Specimen Source Sample Site pH pCO2 pO2 HCO3 Base Excess O2 Saturation Travis Test Vent Rate Inspired O2 Tidal Volume PEEP Pressure (ins/psv/peep) Critical Value Sodium Potassium Chloride Carbon Dioxide Anion Gap BUN Creatinine Est GFR ( Amer) Est GFR (Non-Af Amer) BUN/Creatinine Ratio Glucose Uric Acid Calcium Phosphorus Magnesium Total Bilirubin AST ALT Alkaline Phosphatase Ammonia 60 H Creatine Kinase CK-MB (CK-2) Troponin I 0.06 H D B-Natriuretic Peptide Total Protein Albumin Globulin Albumin/Globulin Ratio TSH Urine Source Urine Color Urine Clarity Urine pH Ur Specific [place] Urine Protein Urine Glucose (UA) Urine Ketones Urine Blood Urine Nitrate Urine Bilirubin Urine Urobilinogen Ur Leukocyte Esterase Urine RBC Urine WBC Ur Epithelial Cells Amorphous Sediment Urine Bacteria Ur Random Sodium Urine Creatinine Vancomycin Peak Vancomycin Trough Urine Opiates Screen Urine Methadone Screen Ur Barbiturates Screen Ur Tricyclics Screen Ur Phencyclidine Scrn Amphetamines Screen U Methamphetamines Scrn U Benzodiazepines Scrn U Cocaine Metab Screen U Cannabinoids Screen 11/19/16 11/19/16 11/20/16 05:00 09:50 05:14 WBC 9.1 RBC 4.61 Hgb 14.4 Hct 43.0 MCV 93.3 MCH 31.2 H MCHC Differential 33.4 RDW 13.9 Plt Count 189 MPV 7.4 Neutrophils % 76.8 Band Neutrophils % Lymphocytes % 12.8 L Monocytes % 6.4 Eosinophils % 3.2 Basophils % 0.8 Neutrophils (Manual) Lymphocytes Monocytes Eosinophils Platelet Estimate Platelet Morphology RBC Morph Micro Appear Eos Smear Source Eos Smear Total Cells Specimen Source Arterial Sample Site Right Radial pH 7.33 L pCO2 62.0 H* pO2 86.8 HCO3 32.3 H Base Excess 4.4 H O2 Saturation 95.8 Travis Test YES Vent Rate NA Inspired O2 40 Tidal Volume NA PEEP NA Pressure (ins/psv/peep) NA Critical Value E.FERNÁNDEZ Sodium 135 L Potassium 3.9 Chloride 103 Carbon Dioxide 30.7 Anion Gap 5.2 L BUN 14 Creatinine 1.0 Est GFR ( Amer) > 60.0 Est GFR (Non-Af Amer) > 60.0 BUN/Creatinine Ratio 14.0 Glucose 123 H Uric Acid Calcium 8.2 L Phosphorus Magnesium Total Bilirubin 0.6 AST 47 H ALT 79 H Alkaline Phosphatase 59 Ammonia Creatine Kinase CK-MB (CK-2) Troponin I B-Natriuretic Peptide Total Protein 6.4 Albumin 3.7 L Globulin 2.7 Albumin/Globulin Ratio 1.4 TSH Urine Source Urine Color Urine Clarity Urine pH Ur Specific [place] Urine Protein Urine Glucose (UA) Urine Ketones Urine Blood Urine Nitrate Urine Bilirubin Urine Urobilinogen Ur Leukocyte Esterase Urine RBC Urine WBC Ur Epithelial Cells Amorphous Sediment Urine Bacteria Ur Random Sodium Urine Creatinine Vancomycin Peak Vancomycin Trough Urine Opiates Screen Urine Methadone Screen Ur Barbiturates Screen Ur Tricyclics Screen Ur Phencyclidine Scrn Amphetamines Screen U Methamphetamines Scrn U Benzodiazepines Scrn U Cocaine Metab Screen U Cannabinoids Screen 11/20/16 11/20/16 11/20/16 05:14 11:52 19:00 WBC RBC Hgb Hct MCV MCH MCHC Differential RDW Plt Count MPV Neutrophils % Band Neutrophils % Lymphocytes % Monocytes % Eosinophils % Basophils % Neutrophils (Manual) Lymphocytes Monocytes Eosinophils Platelet Estimate Platelet Morphology RBC Morph Micro Appear Eos Smear Source Eos Smear Total Cells Specimen Source Arterial Sample Site Right Radial pH 7.37 pCO2 61.0 H* pO2 101.0 H HCO3 31.2 H Base Excess 8.0 H O2 Saturation 98.0 Travis Test PASS Vent Rate Inspired O2 36 Tidal Volume PEEP Pressure (ins/psv/peep) Critical Value PW Sodium 132 L Potassium 3.9 Chloride 100 Carbon Dioxide 28.3 Anion Gap 7.6 BUN 10 Creatinine 1.0 Est GFR ( Amer) > 60.0 Est GFR (Non-Af Amer) > 60.0 BUN/Creatinine Ratio 10.0 Glucose 126 H Uric Acid Calcium 8.3 L Phosphorus Magnesium Total Bilirubin 0.7 AST 44 H ALT 71 H Alkaline Phosphatase 64 Ammonia Creatine Kinase CK-MB (CK-2) Troponin I B-Natriuretic Peptide Total Protein 6.8 Albumin 3.4 L Globulin 3.4 Albumin/Globulin Ratio 1.0 TSH Urine Source Urine Color Urine Clarity Urine pH Ur Specific [place] Urine Protein Urine Glucose (UA) Urine Ketones Urine Blood Urine Nitrate Urine Bilirubin Urine Urobilinogen Ur Leukocyte Esterase Urine RBC Urine WBC Ur Epithelial Cells Amorphous Sediment Urine Bacteria Ur Random Sodium Urine Creatinine Vancomycin Peak 7.8 L Vancomycin Trough Urine Opiates Screen Urine Methadone Screen Ur Barbiturates Screen Ur Tricyclics Screen Ur Phencyclidine Scrn Amphetamines Screen U Methamphetamines Scrn U Benzodiazepines Scrn U Cocaine Metab Screen U Cannabinoids Screen 11/21/16 11/21/16 11/21/16 04:36 04:36 19:31 WBC 11.1 H D RBC 4.41 Hgb 13.6 Hct 40.9 MCV 92.7 MCH 30.7 H MCHC Differential 33.1 RDW 13.4 Plt Count 211 MPV 8.0 Neutrophils % 80.3 H Band Neutrophils % Lymphocytes % 9.3 L Monocytes % 8.8 Eosinophils % 1.0 Basophils % 0.6 Neutrophils (Manual) Lymphocytes Monocytes Eosinophils Platelet Estimate Platelet Morphology RBC Morph Micro Appear Eos Smear Source Eos Smear Total Cells Specimen Source Sample Site pH pCO2 pO2 HCO3 Base Excess O2 Saturation Travis Test Vent Rate Inspired O2 Tidal Volume PEEP Pressure (ins/psv/peep) Critical Value Sodium 133 L Potassium 3.9 Chloride 100 Carbon Dioxide 30.4 Anion Gap 6.5 L BUN 14 Creatinine 1.4 H Est GFR ( Amer) > 60.0 Est GFR (Non-Af Amer) 54.9 BUN/Creatinine Ratio 10.0 Glucose 128 H Uric Acid Calcium 8.2 L Phosphorus Magnesium Total Bilirubin 0.9 AST 60 H ALT 90 H Alkaline Phosphatase 63 Ammonia Creatine Kinase CK-MB (CK-2) Troponin I B-Natriuretic Peptide Total Protein 6.5 Albumin 3.3 L Globulin 3.2 Albumin/Globulin Ratio 1.0 TSH Urine Source Urine Color Urine Clarity Urine pH Ur Specific [place] Urine Protein Urine Glucose (UA) Urine Ketones Urine Blood Urine Nitrate Urine Bilirubin Urine Urobilinogen Ur Leukocyte Esterase Urine RBC Urine WBC Ur Epithelial Cells Amorphous Sediment Urine Bacteria Ur Random Sodium Urine Creatinine Vancomycin Peak Vancomycin Trough 11.3 Urine Opiates Screen Urine Methadone Screen Ur Barbiturates Screen Ur Tricyclics Screen Ur Phencyclidine Scrn Amphetamines Screen U Methamphetamines Scrn U Benzodiazepines Scrn U Cocaine Metab Screen U Cannabinoids Screen 11/22/16 11/23/16 11/23/16 09:49 07:59 08:12 WBC 10.8 RBC 4.33 Hgb 13.6 Hct 40.1 MCV 92.5 MCH 31.5 H MCHC Differential 34.0 RDW 13.7 Plt Count 252 MPV 7.2 Neutrophils % 80.5 H Band Neutrophils % Lymphocytes % 9.9 L Monocytes % 8.2 Eosinophils % 1.3 Basophils % 0.1 Neutrophils (Manual) Lymphocytes Monocytes Eosinophils Platelet Estimate Platelet Morphology RBC Morph Micro Appear Eos Smear Source Eos Smear Total Cells Specimen Source Arterial Sample Site Right Radial pH 7.43 pCO2 51.0 H pO2 52.0 L HCO3 31.1 H Base Excess 8.2 H O2 Saturation 87.0 L Travis Test Positive Vent Rate NA Inspired O2 21 Tidal Volume NA PEEP NA Pressure (ins/psv/peep) NA Critical Value LZHANG Sodium Potassium Chloride Carbon Dioxide Anion Gap BUN Creatinine Est GFR ( Amer) Est GFR (Non-Af Amer) BUN/Creatinine Ratio Glucose Uric Acid Calcium Phosphorus Magnesium Total Bilirubin AST ALT Alkaline Phosphatase Ammonia Creatine Kinase CK-MB (CK-2) Troponin I B-Natriuretic Peptide Total Protein Albumin Globulin Albumin/Globulin Ratio TSH Urine Source Urine Color Urine Clarity Urine pH Ur Specific [place] Urine Protein Urine Glucose (UA) Urine Ketones Urine Blood Urine Nitrate Urine Bilirubin Urine Urobilinogen Ur Leukocyte Esterase Urine RBC Urine WBC Ur Epithelial Cells Amorphous Sediment Urine Bacteria Ur Random Sodium Urine Creatinine Vancomycin Peak Vancomycin Trough 25.6 H Urine Opiates Screen Urine Methadone Screen Ur Barbiturates Screen Ur Tricyclics Screen Ur Phencyclidine Scrn Amphetamines Screen U Methamphetamines Scrn U Benzodiazepines Scrn U Cocaine Metab Screen U Cannabinoids Screen 11/23/16 11/23/16 11/23/16 08:12 09:26 10:45 WBC RBC Hgb Hct MCV MCH MCHC Differential RDW Plt Count MPV Neutrophils % Band Neutrophils % Lymphocytes % Monocytes % Eosinophils % Basophils % Neutrophils (Manual) Lymphocytes Monocytes Eosinophils Platelet Estimate Platelet Morphology RBC Morph Micro Appear Eos Smear Source Eos Smear Total Cells Specimen Source Arterial Sample Site Right Radial pH 7.45 pCO2 43.0 pO2 58.0 L HCO3 28.9 H Base Excess 5.3 H O2 Saturation 91.0 L Travis Test Positive Vent Rate NA Inspired O2 21 Tidal Volume NA PEEP NA Pressure (ins/psv/peep) NA Critical Value LZHANG Sodium 122 L Potassium 3.4 L Chloride 91 L Carbon Dioxide 30.3 Anion Gap 4.1 L BUN 36 H Creatinine 3.1 H Est GFR ( Amer) 26.6 Est GFR (Non-Af Amer) 22.0 BUN/Creatinine Ratio 11.6 Glucose 116 H Uric Acid Calcium 8.6 Phosphorus Magnesium Total Bilirubin 0.9 AST 67 H ALT 119 H Alkaline Phosphatase 72 Ammonia Creatine Kinase CK-MB (CK-2) Troponin I B-Natriuretic Peptide Total Protein 6.8 Albumin 3.4 L Globulin 3.4 Albumin/Globulin Ratio 1.0 TSH Urine Source RANDOM Urine Color YELLOW Urine Clarity HAZY Urine pH 5.5 Ur Specific [place] 1.010 Urine Protein 100 H Urine Glucose (UA) NEGATIVE Urine Ketones NEGATIVE Urine Blood LARGE H Urine Nitrate NEGATIVE Urine Bilirubin NEGATIVE Urine Urobilinogen 0.2 Ur Leukocyte Esterase NEGATIVE Urine RBC 25-50 H Urine WBC 2-5 H Ur Epithelial Cells FEW Amorphous Sediment Urine Bacteria FEW Ur Random Sodium Urine Creatinine Vancomycin Peak Vancomycin Trough Urine Opiates Screen Urine Methadone Screen Ur Barbiturates Screen Ur Tricyclics Screen Ur Phencyclidine Scrn Amphetamines Screen U Methamphetamines Scrn U Benzodiazepines Scrn U Cocaine Metab Screen U Cannabinoids Screen 11/23/16 11/23/16 11/23/16 13:37 13:50 13:50 WBC RBC Hgb Hct MCV MCH MCHC Differential RDW Plt Count MPV Neutrophils % Band Neutrophils % Lymphocytes % Monocytes % Eosinophils % Basophils % Neutrophils (Manual) Lymphocytes Monocytes Eosinophils Platelet Estimate Platelet Morphology RBC Morph Micro Appear Eos Smear Source URINE Eos Smear Total Cells NONE SEEN Specimen Source Sample Site pH pCO2 pO2 HCO3 Base Excess O2 Saturation Travis Test Vent Rate Inspired O2 Tidal Volume PEEP Pressure (ins/psv/peep) Critical Value Sodium Potassium Chloride Carbon Dioxide Anion Gap BUN Creatinine Est GFR ( Amer) Est GFR (Non-Af Amer) BUN/Creatinine Ratio Glucose Uric Acid Calcium Phosphorus Magnesium Total Bilirubin AST ALT Alkaline Phosphatase Ammonia Creatine Kinase 287 H CK-MB (CK-2) 4.1 Troponin I B-Natriuretic Peptide Total Protein Albumin Globulin Albumin/Globulin Ratio TSH Urine Source RANDOM Urine Color YELLOW Urine Clarity SLIGHT HAZY Urine pH 5.0 Ur Specific [place] 1.010 Urine Protein 100 H Urine Glucose (UA) NEGATIVE Urine Ketones NEGATIVE Urine Blood LARGE H Urine Nitrate NEGATIVE Urine Bilirubin NEGATIVE Urine Urobilinogen 0.2 Ur Leukocyte Esterase NEGATIVE Urine RBC 25-50 H Urine WBC 2-5 H Ur Epithelial Cells FEW Amorphous Sediment MODERATE URATES Urine Bacteria 1+ H Ur Random Sodium Urine Creatinine Vancomycin Peak Vancomycin Trough Urine Opiates Screen Urine Methadone Screen Ur Barbiturates Screen Ur Tricyclics Screen Ur Phencyclidine Scrn Amphetamines Screen U Methamphetamines Scrn U Benzodiazepines Scrn U Cocaine Metab Screen U Cannabinoids Screen 11/23/16 11/24/16 11/24/16 13:50 05:15 05:15 WBC 10.3 RBC 4.27 L Hgb 13.3 Hct 40.1 MCV 94.0 MCH 31.1 H MCHC Differential 33.1 RDW 13.5 Plt Count 295 MPV 7.8 Neutrophils % 77.5 Band Neutrophils % Lymphocytes % 9.3 L Monocytes % 9.6 Eosinophils % 3.4 Basophils % 0.2 Neutrophils (Manual) Lymphocytes Monocytes Eosinophils Platelet Estimate Platelet Morphology RBC Morph Micro Appear Eos Smear Source Eos Smear Total Cells Specimen Source Sample Site pH pCO2 pO2 HCO3 Base Excess O2 Saturation Travis Test Vent Rate Inspired O2 Tidal Volume PEEP Pressure (ins/psv/peep) Critical Value Sodium Potassium Chloride Carbon Dioxide Anion Gap BUN Creatinine Est GFR ( Amer) Est GFR (Non-Af Amer) BUN/Creatinine Ratio Glucose Uric Acid Calcium Phosphorus Magnesium Total Bilirubin AST ALT Alkaline Phosphatase Ammonia Creatine Kinase CK-MB (CK-2) Troponin I B-Natriuretic Peptide Total Protein Albumin Globulin Albumin/Globulin Ratio TSH 5.23 Urine Source Urine Color Urine Clarity Urine pH Ur Specific [place] Urine Protein Urine Glucose (UA) Urine Ketones Urine Blood Urine Nitrate Urine Bilirubin Urine Urobilinogen Ur Leukocyte Esterase Urine RBC Urine WBC Ur Epithelial Cells Amorphous Sediment Urine Bacteria Ur Random Sodium 44 Urine Creatinine 54.0 Vancomycin Peak Vancomycin Trough Urine Opiates Screen Urine Methadone Screen Ur Barbiturates Screen Ur Tricyclics Screen Ur Phencyclidine Scrn Amphetamines Screen U Methamphetamines Scrn U Benzodiazepines Scrn U Cocaine Metab Screen U Cannabinoids Screen 11/24/16 11/24/16 11/25/16 05:40 06:50 05:05 WBC 8.8 RBC 4.30 Hgb 13.5 Hct 40.7 MCV 94.7 MCH 31.5 H MCHC Differential 33.2 RDW 13.5 Plt Count 302 MPV 7.2 Neutrophils % 74.0 Band Neutrophils % Lymphocytes % 10.2 L Monocytes % 11.2 H Eosinophils % 4.2 Basophils % 0.4 Neutrophils (Manual) Lymphocytes Monocytes Eosinophils Platelet Estimate Platelet Morphology RBC Morph Micro Appear Eos Smear Source URINE Eos Smear Total Cells NONE SEEN Specimen Source Sample Site pH pCO2 pO2 HCO3 Base Excess O2 Saturation Travis Test Vent Rate Inspired O2 Tidal Volume PEEP Pressure (ins/psv/peep) Critical Value Sodium 137 D Potassium 4.1 Chloride 104 Carbon Dioxide 28.2 Anion Gap 8.9 BUN 43 H Creatinine 3.5 H Est GFR ( Amer) 23.1 Est GFR (Non-Af Amer) 19.1 BUN/Creatinine Ratio 12.3 Glucose 109 H Uric Acid 6.8 Calcium 8.3 L Phosphorus Magnesium Total Bilirubin 0.7 AST 60 H ALT 129 H Alkaline Phosphatase 71 Ammonia Creatine Kinase CK-MB (CK-2) Troponin I B-Natriuretic Peptide Total Protein 6.7 Albumin 3.3 L Globulin 3.4 Albumin/Globulin Ratio 1.0 TSH Urine Source Urine Color Urine Clarity Urine pH Ur Specific [place] Urine Protein Urine Glucose (UA) Urine Ketones Urine Blood Urine Nitrate Urine Bilirubin Urine Urobilinogen Ur Leukocyte Esterase Urine RBC Urine WBC Ur Epithelial Cells Amorphous Sediment Urine Bacteria Ur Random Sodium Urine Creatinine Vancomycin Peak Vancomycin Trough 16.1 Urine Opiates Screen Urine Methadone Screen Ur Barbiturates Screen Ur Tricyclics Screen Ur Phencyclidine Scrn Amphetamines Screen U Methamphetamines Scrn U Benzodiazepines Scrn U Cocaine Metab Screen U Cannabinoids Screen 11/25/16 11/25/16 11/26/16 05:05 17:55 06:33 WBC 7.7 RBC 4.67 Hgb 14.6 Hct 43.9 MCV 94.1 MCH 31.3 H MCHC Differential 33.3 RDW 13.6 Plt Count 346 MPV 7.2 Neutrophils % [employer] Band Neutrophils % 2 Lymphocytes % [employer] Monocytes % [employer] Eosinophils % [employer] Basophils % [employer] Neutrophils (Manual) 69 Lymphocytes 16 L Monocytes 11 H Eosinophils 2 Platelet Estimate ADEQUATE Platelet Morphology NORMAL RBC Morph Micro Appear NORMAL Eos Smear Source Eos Smear Total Cells Specimen Source Arterial Sample Site Right Radial pH 7.40 pCO2 54.0 H pO2 54.0 L HCO3 30.2 H Base Excess 7.1 H O2 Saturation 88.0 L Travis Test POSITIVE Vent Rate NA Inspired O2 21 Tidal Volume NA PEEP NA Pressure (ins/psv/peep) NA Critical Value CS Sodium 136 Potassium 4.1 Chloride 102 Carbon Dioxide 28.3 Anion Gap 9.8 BUN 48 H Creatinine 3.6 H Est GFR ( Amer) 22.4 Est GFR (Non-Af Amer) 18.5 BUN/Creatinine Ratio 13.3 Glucose 118 H Uric Acid Calcium 8.5 L Phosphorus 5.0 Magnesium Total Bilirubin 0.5 AST 45 H ALT 113 H Alkaline Phosphatase 73 Ammonia Creatine Kinase CK-MB (CK-2) Troponin I B-Natriuretic Peptide Total Protein 7.0 Albumin 3.2 L Globulin 3.8 Albumin/Globulin Ratio 0.8 L TSH Urine Source Urine Color Urine Clarity Urine pH Ur Specific [place] Urine Protein Urine Glucose (UA) Urine Ketones Urine Blood Urine Nitrate Urine Bilirubin Urine Urobilinogen Ur Leukocyte Esterase Urine RBC Urine WBC Ur Epithelial Cells Amorphous Sediment Urine Bacteria Ur Random Sodium Urine Creatinine Vancomycin Peak Vancomycin Trough 10.7 Urine Opiates Screen Urine Methadone Screen Ur Barbiturates Screen Ur Tricyclics Screen Ur Phencyclidine Scrn Amphetamines Screen U Methamphetamines Scrn U Benzodiazepines Scrn U Cocaine Metab Screen U Cannabinoids Screen 11/26/16 11/27/16 11/27/16 06:33 06:05 06:05 WBC 8.4 RBC 4.84 Hgb 15.1 Hct 45.6 MCV 94.2 MCH 31.2 H MCHC Differential 33.1 RDW 13.4 Plt Count 357 MPV 6.7 Neutrophils % 73.2 Band Neutrophils % Lymphocytes % 11.4 L Monocytes % 10.7 H Eosinophils % 4.2 Basophils % 0.5 Neutrophils (Manual) Lymphocytes Monocytes Eosinophils Platelet Estimate Platelet Morphology RBC Morph Micro Appear Eos Smear Source Eos Smear Total Cells Specimen Source Sample Site pH pCO2 pO2 HCO3 Base Excess O2 Saturation Travis Test Vent Rate Inspired O2 Tidal Volume PEEP Pressure (ins/psv/peep) Critical Value Sodium 138 136 Potassium 4.7 4.6 Chloride 105 104 Carbon Dioxide 29.1 27.4 Anion Gap 8.6 9.2 BUN 47 H 40 H Creatinine 3.4 H 3.0 H Est GFR ( Amer) 23.9 27.6 Est GFR (Non-Af Amer) 19.7 22.8 BUN/Creatinine Ratio 13.8 13.3 Glucose 122 H 110 H Uric Acid Calcium 8.8 9.2 Phosphorus 5.2 H Magnesium Total Bilirubin 0.4 AST 39 ALT 108 H Alkaline Phosphatase 82 Ammonia Creatine Kinase CK-MB (CK-2) Troponin I B-Natriuretic Peptide Total Protein 7.6 Albumin 3.6 L Globulin 4.0 Albumin/Globulin Ratio 0.9 L TSH Urine Source Urine Color Urine Clarity Urine pH Ur Specific [place] Urine Protein Urine Glucose (UA) Urine Ketones Urine Blood Urine Nitrate Urine Bilirubin Urine Urobilinogen Ur Leukocyte Esterase Urine RBC Urine WBC Ur Epithelial Cells Amorphous Sediment Urine Bacteria Ur Random Sodium Urine Creatinine Vancomycin Peak Vancomycin Trough Urine Opiates Screen Urine Methadone Screen Ur Barbiturates Screen Ur Tricyclics Screen Ur Phencyclidine Scrn Amphetamines Screen U Methamphetamines Scrn U Benzodiazepines Scrn U Cocaine Metab Screen U Cannabinoids Screen Hospital Course: 61-year-old male admitted to [facility] emergency room after patient was reported to have high-grade fever as well as associated with altered mental status and respiratory distress. Patient was admitted to intensive care unit, patient was seen by cardiology and pulmonary and infectious disease M.D. Patient was placed on IV antibiotic along with IV hydration patient did have some evidence of rhabdomyolysis which was treated as well. Patient was also noted to her bilateral lower extremity cellulitis which was treated as well. Patient was noted to have obstructive sleep apnea and required BiPAP therapy as well patient underwent extensive workup, the patient had evidence of diastolic dysfunction associated with the congestive heart failure. Blood cultures done in the emergency room came out positive for Staphylococcus coagulase negative ,based on that patient was placed on IV antibiotic. Due to the fact IV antibiotic caused him to her acute kidney injury which allowed us to discontinue his IV vancomycin and monitored the lab. Patient did have a creatinine went up to 3.6 and today came down to 3. The patient urine output chart revealed patient had adequate urine output. 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 I have advised patient is to have follow up lab. Patient to have total of 2 weeks of IV Antibiotics. Patient is discharged home in stable condition today to get physical therapy and occupational therapy plus antibiotics in [facility]. Patient will be followed by another primary care doctor due to his insurance purpose. Condition at Discharge: Stable Disposition: [facility] Home Medications: Home Medication Medication Instructions Recorded Type Unobtainable [Unobtainable] 11/17/16 History Inpatient Medications: Current Medications Acetaminophen (Tylenol) 650 mg PO Q6H PRN PRN Reason: Mild Pain/Headache/T above 101 Stop: 01/16/17 21:18 Last Admin: 11/18/16 00:05 Dose: 650 mg Albuterol/Ipratropium (Duoneb Neb) 3 ml HHN [id number] HUA Stop: 01/17/17 14:59 Last Admin: 11/27/16 07:57 Dose: Not Given Budesonide (Pulmicort) 0.5 mg HHN BIDRT HUA Stop: 01/17/17 18:59 Last Admin: 11/26/16 19:00 Dose: Not Given Clonidine HCl (Catapres) 0.1 mg PO Q4HR PRN PRN Reason: For systolic over 150 Stop: 01/21/17 02:03 Last Admin: 11/24/16 09:21 Dose: 0.1 mg Enoxaparin Sodium (Lovenox) 30 mg SUBQ DAILY HUA Stop: 01/17/17 08:59 Last Admin: 11/26/16 09:01 Dose: 30 mg Hydralazine HCl (Apresoline) 10 mg PO TID HUA Stop: 01/23/17 20:59 Last Admin: 11/26/16 22:14 Dose: Not Given Hydrocortisone (Hydrocortisone 1% Cream) 1 gm TP BID HUA Stop: 01/22/17 16:59 Last Admin: 11/26/16 16:55 Dose: 1 gm Dextrose/Sodium Chloride (D5-0.9%Ns) 1,000 mls @ 100 mls/hr IV .Q10H HUA Stop: 01/22/17 13:45 Last Admin: 11/27/16 03:11 Dose: 100 mls/hr Dopamine HCl/Dextrose 400 mg/ (Miscellaneous) 250 mls @ 0 mls/hr IV TITR HUA PRN Reason: Titrate Stop: 11/27/16 15:59 Last Admin: 11/27/16 03:12 Dose: 8.54 mls/hr Lactic Acid (Lac-Hydrin Cream) 1 appl TP BID HUA Stop: 01/23/17 16:59 Last Admin: 11/26/16 16:55 Dose: 1 appl Lactobacillus Rhamnosus (Culturelle) 1 each PO DAILY HUA Stop: 01/20/17 08:59 Last Admin: 11/26/16 09:00 Dose: 1 each Miscellaneous (Vte Chemical Prophylaxis Screen/ Admission) 1 ea PRN PRN PRN Reason: PROTOCOL Stop: 01/19/17 09:31 Miscellaneous (Probiotic Screen) 1 [facility] PRN PRN PRN Reason: PROTOCOL Stop: 01/19/17 09:35 Miscellaneous (Clinical Monitoring) 1 [facility] PRN PRN PRN Reason: PROTOCOL Stop: 01/22/17 12:17 Ondansetron HCl (Zofran) 4 mg IVP Q6H PRN PRN Reason: Nausea / Vomiting Stop: 01/16/17 21:18 Activity: As Tolerated Consults and Follow-Up: Dmitri Shah [Primary Care Provider] -
[2016-11-27] MEDS: Hydrocortisone 1% Cream 1 gm Packet TP SCH (10:45)
[2016-11-27] MEDS: Lactobacillus Rhamnosus 10 Billion CFU Capsule PO SCH (10:45)
[2016-11-27] MEDS: Enoxaparin 30 mg/0.3 mL 0.3mL Syr SUBQ SCH (10:46)
== END 2016-11-27 13:44 | DRG 720 ==
LOC: ER 18:07 → ICU 21:30 → TELE 11-21 17:20 → MSI 11-23 09:08
PROVIDERS: ADMIT Internal Medicine; ATTEND Internal Medicine
DX: A41.1 Sepsis due to other specified staphylococcus (principal); J96.01 Acute respiratory failure with hypoxia; I50.31 Acute diastolic (congestive) heart failure; N17.9 Acute kidney failure, unspecified; Z68.41 Body mass index [BMI] 40.0-44.9, adult; I42.9 Cardiomyopathy, unspecified; M62.82 Rhabdomyolysis; N39.0 Urinary tract infection, site not specified; T67.0XXA Heatstroke and sunstroke, initial encounter; I11.0 Hypertensive heart disease with heart failure; L03.115 Cellulitis of right lower limb; L03.116 Cellulitis of left lower limb; E78.5 Hyperlipidemia, unspecified; G47.33 Obstructive sleep apnea (adult) (pediatric); M19.90 Unspecified osteoarthritis, unspecified site; E66.9 Obesity, unspecified; F15.10 Other stimulant abuse, uncomplicated; N14.1 Nephropathy induced by other drugs, medicaments and biological substances; Z82.49 Family history of ischemic heart disease and other diseases of the circulatory system; Z83.3 Family history of diabetes mellitus; Z82.3 Family history of stroke; Z87.891 Personal history of nicotine dependence; Z59.0 Homelessness
CPT/HCPCS: 36415-UA; 36600-90; 71010-TC; 71020-TC; 71275-TC; 76770-TC; 80048-TC; 80053-TC; 80061-TC; 80202-TC; 80307; 80320-TC; 81001-TC; 81015-TC; 82140-TC; 82550-TC; 82553; 82570-TC; 82803-TC; 83036-90; 83605; 83735-TC; 83880-TC; 84100-TC; 84300-TC; 84443-TC; 84484-TC; 84550-TC; 85007-TC; 85025-TC; 85027-TC; 85379-TC; 85610-TC; 85730-TC; 86592-TC; 87086-90; 93005; 93307-TC; 94660; 94760; 96375; 97530; J0696; J1265; J1650; J1940; J1956; J2060; J2543; J3370; J7030; J7040; J7042; X3904; Z7502; Z7610